=== PATIENT | male | born 1970 | race African-American/Black ===

== ENCOUNTER 2017-11-15 11:28 | Emergency (ER) | payer OTHER ==
[2017-11-15 12:45] LABS: Absolute Lymphocytes (CBC) 2.6 K/uL (0.7-4.9); Absolute Monocytes 0.4 K/uL (0.1-1.3); Absolute Neutrophil 2.2 K/uL (1.8-8.0); Basophils % 0.5 % (0-1.3); Eosinophils % 1.6 % (0-4.4); Hematocrit 41.7 % (39.6-49.0); Lymphocytes % 49.3 % (15.3-44.8); MCH 30.6 pg (27.0-35.0); MCV 93.6 fL (80-100); MPV 9.5 fL (7.6-11.3); Monocytes % 6.8 % (3.3-12.3); RBC Red Blood Cell Count 4.45 M/uL (4.33-5.43)
[2017-11-15 13:00] LABS: Bicarbonate 26 mEq/L (21-31); Glucose Level 124 mg/dL (65-120); Potassium 3.8 mEq/L (3.6-5.0); Sodium Level 135 mEq/L (135-145)
[2017-11-15 13:01] LABS: BUN Blood Urea Nitrogen 11 mg/dL (6-20)
--- NOTE | 2017-11-15 13:27 | RAD REPORT ---
EXAM DESCRIPTION: RAD - Chest Single View - 11/15/2017 1:08 pm CLINICAL HISTORY: Chest pain COMPARISON: July 25 TECHNIQUE: AP portable chest image was obtained 1247 hours . FINDINGS: Lungs are clear. Heart and vasculature are normal. No measurable pleural effusion and no p neumothorax. No gross bony abnormality seen. No acute aortic findings suspected. IMPRESSION: No acute cardiopulmonary process. No significant interval change.
--- NOTE | 2017-11-15 13:34 | EKG ---
Test Date: 2017-11-15 Test Time: 13:22:40 Wood Box Maker: SEE MEASUREMENT RESULTS: Intervals: Rate: 69 MA: 194 QRSD: 80 QT: 396 QTc: 424 Byers: P: 44 MA: 194 QRS: 19 T: 47 INTERPRETIVE STATEMENTS: Normal sinus rhythm Normal ECG Compared to ECG 07/25/2017 21:49:00 No significant changes Electronically Signed On 11-15-17 13:34:02 CDT by Geoff Faria
--- NOTE | 2017-11-15 13:47 | ER ---
Nurse's Notes [facility] Name: Marie Carty Age: 47 yrs Sex: Male : 1970 Arrival Date: 11/15/2017 Time: 11:30 Bed 6 Private MD: Out, [facility] Diagnosis: Chest pain, unspecified;Unspecified mononeuropathy of left upper limb;Other specified mononeuropathies of left lower limb Presentation: 11/15 11:39 Presenting complaint: Patient states: Swelling to bilateral hands, usually in the aj mornings and at night. for 1 week. Transition of care: patient was not received from another setting of care. Onset of symptoms was November 07, 2017. Care prior to arrival: None. 11:39 Method Of Arrival: Ambulatory aj 11:39 Acuity: MARYAM 3 aj 12:06 Risk Assessment: Do you want to hurt yourself or someone else? Patient reports no sv desire to harm self or others. Initial Sepsis Screen: Does the patient meet any 2 criteria? No. Patient's initial sepsis screen is negative. Does the patient have a suspected source of infection? No. Patient's initial sepsis screen is negative. Triage Assessment: 11:40 General: Appears in no apparent distress. comfortable, Behavior is calm, cooperative, aj appropriate for age. Pain: Denies pain. Neuro: Level of Consciousness is awake, alert, obeys commands, Oriented to person, place, time, situation, Appropriate for age. Cardiovascular: Reports since swelling to bilateral hands for 1 week. Respiratory: Airway is patent Respiratory effort is even, unlabored, Respiratory pattern is regular, symmetrical. Derm: Skin is intact, is healthy with good turgor, Skin is pink, warm \T\ dry. normal. Historical: - Allergies: 11:40 Iodine; aj - Home Meds: 11:40 Cyclobenzaprine Oral [Active]; Hydrocodone-Acetaminophen Oral [Active]; Metformin Oral aj [Active]; Xanax Oral [Active]; - PMHx: 11:40 Anxiety; Chronic pain; aj - PSHx: 11:40 None; aj - Immunization history:: Adult Immunizations up to date. - Social history:: Smoking status: Patient uses tobacco products, smokes one pack cigarettes per day. - Ebola Screening: : Patient negative for fever greater than or equal to 101.5 degrees Fahrenheit, and additional compatible Ebola Virus Disease symptoms Patient denies exposure to infectious person Patient denies travel to an Ebola-affected area in the 21 days before illness onset No symptoms or risks identified at this time. Screenin:05 Abuse screen: Denies threats or abuse. Denies injuries from another. Nutritional sv screening: No deficits noted. Tuberculosis screening: No symptoms or risk factors identified. Fall Risk None identified. Assessment: 12:03 General: Appears in no apparent distress. comfortable, well developed, Behavior is sv calm, cooperative, appropriate for age. Pain: Denies pain. Neuro: Level of Consciousness is awake, alert, obeys commands, Oriented to person, place, time, situation, Airline Pilot/First Officer are equal bilaterally Moves all extremities. Full function Gait is steady, Speech is normal, Reports intermittent numbness and tightness to his left arm. Pt reports he had cut his left forearm with a chainsaw and has been having intermittent numbness and tightness.. Cardiovascular: Patient's skin is warm and dry. Pulses are 3+ in right radial artery and left radial artery. Respiratory: Respiratory effort is even, unlabored, Respiratory pattern is regular, symmetrical. Derm: Skin is normal. Musculoskeletal: Range of motion: intact in all extremities. 14:29 Reassessment: Patient appears in no apparent distress at this time. No changes from sv previously documented assessment. Patient and/or family updated on plan of care and expected duration. Pain level reassessed. Patient is alert, oriented x 3, equal unlabored respirations, skin warm/dry/pink. Vital Signs: 11:40 BP 133 / 70; Pulse 82; Resp 19; Temp 98.6; Pulse Ox 98% on R/A; Weight 121.56 kg; aj Height 5 ft. 8 in. (172.72 cm); 13:10 BP 134 / 84; Pulse 70 MON; Resp 22; Pulse Ox 99% on R/A; sv 11:40 Body Mass Index 40.75 (121.56 kg, 172.72 cm) aj 13:10 Sinus Rhythm sv ED Course: 11:30 Patient arrived in ED. sb2 11:31 Out, [facility] is Private Physician. sb2 11:40 Triage completed. aj 11:40 Arm band placed on right wrist. Patient placed in an exam room. aj 11:53 Sonya Savage, JACQUES is Primary Nurse. sv 12:05 Patient has correct armband on for positive identification. Bed in low position. Door sv closed. Head of bed elevated. 12:15 Dami Tolliver MD is Attending Physician. 12:30 Initial lab(s) drawn, by me, sent to lab. Inserted saline lock: 20 gauge in right sv antecubital area, using aseptic technique. Blood collected. Flushed right antecubital with 5 ml normal saline. 13:08 XRAY Chest (1 view) In Process Unspecified. EDMS 13:08 X-ray completed. Portable x-ray completed in exam room. Patient tolerated procedure mh1 well. 13:26 EKG done, by microbiology quality control technician. reviewed by Dami Tolliver MD. at1 14:30 No provider procedures requiring assistance completed. IV discontinued, intact, sv bleeding controlled, No redness/swelling at site. Pressure dressing applied. Administered Medications: No medications were administered Point of Care Testing: Blood Glucose: 12:02 Blood Glucose: 113 mg/dL; sv Ranges: Outcome: 13:46 Discharge ordered by . gs 14:30 Discharged to home ambulatory, with family. sv 14:30 Condition: stable 14:30 Discharge instructions given to patient, Instructed on discharge instructions, follow up and referral plans. Demonstrated understanding of instructions, follow-up care. 14:31 Patient left the ED. sv Signatures: Dispatcher [employer] Sonya Canela, Santa Sena RN, RN RN aj Harvey, Martha 1 Santa hayden, mortgage loan counselor EKG Tat1 Dami Tolliver MD MD Federica Samaniego 2
--- NOTE | 2017-11-15 13:47 | EDPHYS ---
Physician Documentation [facility] Name: Marie Carty Age: 47 yrs Sex: Male : 1970 Arrival Date: 11/15/2017 Time: 11:30 Bed 6 Private MD: Out, [facility] ED Physician Dami Tolliver HPI: 11/15 15:59 This 47 yrs old Black Male presents to ER via Ambulatory with complaints of Arm Problem.gs 15:59 The patient or guardian complains of pain, that is acute. The complaints affect the gs anterior aspect of left shoulder. Onset: The symptoms/episode began/occurred 1 week(s) ago. Modifying factors: The symptoms are alleviated by nothing. the symptoms are aggravated by nothing. Associated signs and symptoms: Pertinent positives: tingling. Severity of symptoms: At their worst the symptoms were moderate, in the emergency department the symptoms are unchanged. The patient has experienced similar episodes in the past, a few times. Historical: - Allergies: 11:40 Iodine; aj - Home Meds: 11:40 Cyclobenzaprine Oral [Active]; Hydrocodone-Acetaminophen Oral [Active]; Metformin Oral aj [Active]; Xanax Oral [Active]; - PMHx: 11:40 Anxiety; Chronic pain; aj - PSHx: 11:40 None; aj - Immunization history:: Adult Immunizations up to date. - Social history:: Smoking status: Patient uses tobacco products, smokes one pack cigarettes per day. - Ebola Screening: : Patient negative for fever greater than or equal to 101.5 degrees Fahrenheit, and additional compatible Ebola Virus Disease symptoms Patient denies exposure to infectious person Patient denies travel to an Ebola-affected area in the 21 days before illness onset No symptoms or risks identified at this time. ROS: 15:59 All other systems are negative. gs Exam: 15:59 Head/Face: Normocephalic, atraumatic. Eyes: Pupils equal round and reactive to light, gs extra-ocular motions intact. Lids and lashes normal. Conjunctiva and sclera are non-icteric and not injected. Cornea within normal limits. Periorbital areas with no swelling, redness, or edema. ENT: Nares patent. No nasal discharge, no septal abnormalities noted. Tympanic membranes are normal and external auditory canals are clear. Oropharynx with no redness, swelling, or masses, exudates, or evidence of obstruction, uvula midline. Mucous membranes moist. Neck: Trachea midline, no thyromegaly or masses palpated, and no cervical lymphadenopathy. Supple, full range of motion without nuchal rigidity, or vertebral point tenderness. No Meningismus. Chest/axilla: Normal chest wall appearance and motion. Nontender with no deformity. No lesions are appreciated. Cardiovascular: Regular rate and rhythm with a normal S1 and S2. No gallops, murmurs, or rubs. Normal PMI, no JVD. No pulse deficits. Respiratory: Lungs have equal breath sounds bilaterally, clear to auscultation and percussion. No rales, rhonchi or wheezes noted. No increased work of breathing, no retractions or nasal flaring. Abdomen/GI: Soft, non-tender, with normal bowel sounds. No distension or tympany. No guarding or rebound. No evidence of tenderness throughout. Back: No spinal tenderness. No costovertebral tenderness. Full range of motion. Skin: Warm, dry with normal turgor. Normal color with no rashes, no lesions, and no evidence of cellulitis. MS/ Extremity: Pulses equal, no cyanosis. Neurovascular intact. Full, normal range of motion. 15:59 Constitutional: The patient appears alert, awake. 15:59 ECG was reviewed by the Attending Physician. Vital Signs: 11:40 BP 133 / 70; Pulse 82; Resp 19; Temp 98.6; Pulse Ox 98% on R/A; Weight 121.56 kg; aj Height 5 ft. 8 in. (172.72 cm); 13:10 BP 134 / 84; Pulse 70 MON; Resp 22; Pulse Ox 99% on R/A; sv 11:40 Body Mass Index 40.75 (121.56 kg, 172.72 cm) aj 13:10 Sinus Rhythm sv MDM: 12:26 Patient medically screened. 15:59 Differential diagnosis: contusion, tendonitis, cad, strain. Data reviewed: vital signs, gs nurses notes. Response to treatment: the patient's symptoms have markedly improved after treatment, and as a result, I will discharge patient. 11/15 12:02 Order name: Glucose, Ancillary Testing; Complete Time: 12:15 EDMS 11/15 12:26 Order name: Basic Metabolic Panel; Complete Time: 13:42 gs 11/15 12:26 Order name: CBC with Diff; Complete Time: 13:42 11/15 12:26 Order name: Troponin (emerg Dept Use Only); Complete Time: 13:42 11/15 12:26 Order name: XRAY Chest (1 view); Complete Time: 13:42 11/15 12:26 Order name: EKG; Complete Time: 12:27 11/15 12:26 Order name: Cardiac monitoring; Complete Time: 12:37 11/15 12:26 Order name: EKG - Nurse/Tech; Complete Time: 13:44 11/15 12:26 Order name: IV Saline Lock; Complete Time: 12:37 11/15 12:26 Order name: Labs collected and sent; Complete Time: 12:37 11/15 12:26 Order name: O2 Per Protocol; Complete Time: 12:37 11/15 12:26 Order name: O2 Sat Monitoring; Complete Time: 12:38 gs EC:59 Rate is 69 beats/min. Rhythm is regular. MD interval is normal. QRS interval is normal. gs T waves are Normal. No ST changes noted. Clinical impression: Normal ECG. Interpreted by me. Administered Medications: No medications were administered Point of Care Testing: Blood Glucose: 12:02 Blood Glucose: 113 mg/dL; sv Ranges: Critical Glucose Levels:Adult <50 mg/dl or >400 mg/dl <40 mg/dl or >180 mg/dl Disposition: 11/15/17 13:46 Discharged to Home. Impression: Chest pain, unspecified, Unspecified mononeuropathy of left upper limb, Other specified mononeuropathies of left lower limb. - Condition is Stable. - Discharge Instructions: Nonspecific Chest Pain, Diabetic Neuropathy. - Medication Reconciliation Form, Thank You Letter, Antibiotic Education, Prescription Opioid Use form. - Follow up: Private Physician; When: 2 - 3 days; Reason: Recheck today's complaints, Re-evaluation by your physician. Signatures: Dispatcher [employer] Sonya Canela RN RN sv Myers, Amanda, RN RN aj Starr, Gregory, MD MD gs Corrections: (The following items were deleted from the chart) 14:31 13:46 11/15/2017 13:46 Discharged to Home. Impression: Chest pain, unspecified; sv Unspecified mononeuropathy of left upper limb; Other specified mononeuropathies of left lower limb. Condition is Stable. Forms are Medication Reconciliation Form, Thank You Letter, Antibiotic Education, Prescription Opioid Use. Follow up: Private Physician; When: 2 - 3 days; Reason: Recheck today's complaints, Re-evaluation by your physician. gs
[2017-11-15 14:34] VITALS: TEMP 98.6
[2017-11-15 14:35] VITALS: BP 134/84; O2SAT 99
== END 2017-11-15 14:31 | disposition home or self-care (01) ==
LOC: ER 11:28
DX: G56.92 Unspecified mononeuropathy of left upper limb (principal); G57.82 Other specified mononeuropathies of left lower limb; F41.9 Anxiety disorder, unspecified; F17.210 Nicotine dependence, cigarettes, uncomplicated; Z91.048 Other nonmedicinal substance allergy status
CPT/HCPCS: 36415; 71045; 80048; 82962; 84484; 85025; 93005; 99284

== ENCOUNTER 2017-12-20 15:47 | Emergency (ER) | payer SELFPAY ==
--- NOTE | 2017-12-20 16:01 | ER ---
Nurse's Notes [facility] Name: Marie Carty Age: 47 yrs Sex: Male : 1970 Arrival Date: 12/20/2017 Time: 15:50 Bed Waiting Private MD: None, None Diagnosis: Presentation: 12/20 15:56 Presenting complaint: Patient states: Reports feeling palpitations today. Transition of aj care: patient was not received from another setting of care. Onset of symptoms was December 20, 2017. Risk Assessment: Do you want to hurt yourself or someone else? Patient reports no desire to harm self or others. Initial Sepsis Screen: Does the patient meet any 2 criteria? No. Patient's initial sepsis screen is negative. Does the patient have a suspected source of infection? No. Patient's initial sepsis screen is negative. Care prior to arrival: None. 15:56 Method Of Arrival: Ambulatory 15:56 Acuity: MARYAM 3 aj Triage Assessment: 15:58 General: Appears in no apparent distress. comfortable, Behavior is calm, cooperative, aj appropriate for age. Pain: Denies pain. Neuro: Level of Consciousness is awake, alert, obeys commands, Oriented to person, place, time, situation, Appropriate for age. Cardiovascular: Reports palpitations. Respiratory: Airway is patent Respiratory effort is even, unlabored, Respiratory pattern is regular, symmetrical. Derm: Skin is intact, is healthy with good turgor, Skin is pink, warm \\T\\ dry. normal. Historical: - Allergies: 15:58 Iodine; aj - Home Meds: 15:58 Hydrocodone-Acetaminophen Oral [Active]; Cyclobenzaprine Oral [Active]; Metformin Oral aj [Active]; Xanax Oral [Active]; Ambien Oral [Active]; - PMHx: 15:58 Anxiety; Chronic pain; Diabetes - NIDDM; aj - PSHx: 15:58 back; aj - Immunization history:: Adult Immunizations up to date. - Social history:: Smoking status: Patient/guardian denies using tobacco. - Ebola Screening: : Patient negative for fever greater than or equal to 101.5 degrees Fahrenheit, and additional compatible Ebola Virus Disease symptoms Patient denies exposure to infectious person Patient denies travel to an Ebola-affected area in the 21 days before illness onset No symptoms or risks identified at this time. Vital Signs: 15:58 BP 123 / 79; Pulse 86; Resp 18; Temp 98.5; Pulse Ox 98% on R/A; Weight 121.56 kg; aj Height 5 ft. 8 in. (172.72 cm); 15:58 Body Mass Index 40.75 (121.56 kg, 172.72 cm) aj ED Course: 15:50 Patient arrived in ED. mr 15:50 None, None is Private Physician. mr 15:57 Triage completed. aj 15:58 Arm band placed on left wrist. Patient placed Patient stated "Well I don't want to see aj a doctor, my blood pressure and heart rate are normal. I just wanted to see what they were. I'm going to go home." Patient encouraged to stay. 16:01 Yeison Park MD is Attending Physician. lala Administered Medications: No medications were administered Outcome: 16:00 Eloped from waiting room, before seeing physician Time discovered patient gone: December aj 2017 at 16:00 See note 16:01 Patient left the ED. lala Signatures: Santa Meehan, RN RN Chelle To mr
[2017-12-20 16:04] VITALS: BP 123/79; TEMP 98.5; O2SAT 98
== END 2017-12-20 16:01 | disposition left against medical advice (07) ==
LOC: ER 15:47
DX: Z53.21 Procedure and treatment not carried out due to patient leaving prior to being seen by health care provider (principal)
CPT/HCPCS: 99281

== ENCOUNTER 2018-01-22 18:33 | Emergency (ER) | payer OTHER, SELFPAY ==
--- NOTE | 2018-01-22 20:28 | ER ---
Nurse's Notes [facility] Name: Marie Carty Age: 47 yrs Sex: Male : 1970 Arrival Date: 01/22/2018 Time: 18:35 Bed 16 Private MD: Diagnosis: Chest pain, unspecified Presentation: 01/22 18:36 Presenting complaint: Patient states: i was watching TV around 5:30pm when i started hj feeling a burning sensation on the L side of my body, my chest, my L arm, my L leg; reports on and off SOB;. Transition of care: patient was not received from another setting of care. Onset of symptoms was January 22, 2018. Risk Assessment: Do you want to hurt yourself or someone else? Patient reports no desire to harm self or others. Initial Sepsis Screen: Does the patient meet any 2 criteria? No. Patient's initial sepsis screen is negative. Does the patient have a suspected source of infection? No. Patient's initial sepsis screen is negative. Care prior to arrival: None. 18:36 Method Of Arrival: Ambulatory 18:36 Acuity: MARYAM 3 hj Triage Assessment: 18:39 General: Appears in no apparent distress. uncomfortable, Behavior is calm, cooperative, hj appropriate for age. Pain: Complains of pain in chest. Historical: - Allergies: 18:39 Iodine; hj - Home Meds: 18:39 Ambien Oral [Active]; Cyclobenzaprine Oral [Active]; Hydrocodone-Acetaminophen Oral hj [Active]; Metformin Oral [Active]; Xanax Oral [Active]; - PMHx: 18:39 Anxiety; Chronic pain; Diabetes - NIDDM; hj - PSHx: 18:39 back; hj - Immunization history:: Adult Immunizations up to date. - Social history:: Smoking status: Patient/guardian denies using tobacco. - Ebola Screening: : Patient negative for fever greater than or equal to 101.5 degrees Fahrenheit, and additional compatible Ebola Virus Disease symptoms Patient denies exposure to infectious person Patient denies travel to an Ebola-affected area in the 21 days before illness onset. Screenin:39 Abuse screen: Denies threats or abuse. Denies injuries from another. Nutritional hj screening: No deficits noted. Tuberculosis screening: No symptoms or risk factors identified. Fall Risk None identified. Assessment: 19:12 General: Appears uncomfortable, Behavior is calm, cooperative, appropriate for age. ea Pain: Complains of pain in anterior aspect of left upper chest Pain does not radiate. Pain currently is 6 out of 10 on a pain scale. Quality of pain is described as aching, Is intermittent. Neuro: Level of Consciousness is awake, alert, obeys commands, Oriented to person, place, time, situation. Cardiovascular: Heart tones S1 S2 present Patient's skin is warm and dry. Respiratory: Airway is patent Respiratory effort is even, unlabored, Respiratory pattern is regular, symmetrical, Breath sounds are clear bilaterally. GI: Abdomen is round Bowel sounds present X 4 quads. Abd is soft and non tender X 4 quads. : No signs and/or symptoms were reported regarding the genitourinary system. Derm: Skin is dry, Skin is normal, Skin temperature is warm. Musculoskeletal: Circulation, motion, and sensation intact. 20:23 Reassessment: Patient and/or family updated on plan of care and expected duration. Pain ea level reassessed. Patient is alert, oriented x 3, equal unlabored respirations, skin warm/dry/pink. 20:46 Reassessment: Patient and/or family updated on plan of care and expected duration. Pain ea level reassessed. Patient is alert, oriented x 3, equal unlabored respirations, skin warm/dry/pink. Discharge instructions given to patient, verbalized the understanding of instruction. Patient denies pain at this time. Patient states feeling better. Patient states symptoms have improved. Vital Signs: 18:40 BP 133 / 83; Pulse 87; Resp 18; Temp 98.2(TE); Pulse Ox 97% on R/A; Weight 122.02 kg; hj Height 5 ft. 8 in. (172.72 cm); Pain 3/10; 19:15 BP 122 / 63; Pulse 83; Resp 18; Pulse Ox 99% ; Pain 5/10; ea 20:23 BP 138 / 76; Pulse 76; Resp 18; Pulse Ox 98% on R/A; Pain 0/10; ea 18:40 Body Mass Index 40.90 (122.02 kg, 172.72 cm) ED Course: 18:35 Patient arrived in ED. hj 18:38 Triage completed. hj 18:40 Arm band placed on left wrist. hj 18:40 Patient has correct armband on for positive identification. Placed in gown. Bed in low hj position. Call light in reach. Side rails up X 1. 19:06 Dami Tolliver MD is Attending Physician. ting 19:12 Karmen Kirby, RN is Primary Nurse. quinton 20:47 No provider procedures requiring assistance completed. IV discontinued, intact, ea bleeding controlled, No redness/swelling at site. Pressure dressing applied. Administered Medications: No medications were administered Outcome: 20:28 Discharge ordered by MD. gs 20:47 Discharged to home ambulatory, with family. ea 20:47 Condition: improved 20:47 Discharge instructions given to patient, family, Instructed on discharge instructions, follow up and referral plans. Demonstrated understanding of instructions, follow-up care. 20:48 Patient left the ED. ea Signatures: Jose Desai RN RN hj Antunez, Elena, RN RN ea Starr, Gregory, MD MD Corrections: (The following items were deleted from the chart) 18:42 18:36 Presenting complaint: Patient states: i was watching TV around 5:30pm when i hj started feeling a burning sensation on the L side of my body, my L arm, my L leg; reports on and off SOB; hj 18:43 18:40 Pulse 87bpm; Resp 18bpm; Pulse Ox 97% RA; Temp 98.2F Temporal; 122.02 kg; Height hj 5 ft. 8 in.; BMI: 40.9; Pain 3/10; hj
--- NOTE | 2018-01-22 20:28 | EDPHYS ---
Physician Documentation [facility] Name: Marie Carty Age: 47 yrs Sex: Male : 1970 Arrival Date: 01/22/2018 Time: 18:35 Bed 16 Private MD: ED Physician Dami Tolliver HPI: 01/22 20:21 This 47 yrs old Black Male presents to ER via Ambulatory with complaints of L side gs burning sensation. 20:21 The patient or guardian reports chest pain that is located primarily in the anterior gs chest wall, left. Onset: acutely, just prior to arrival. The pain does not radiate. Associated signs and symptoms: Pertinent negatives: abdominal pain, lightheadedness, palpitations, shortness of breath, syncope. The chest pain is described as tingling. Duration: The patient or guardian reports a single episode, that is now resolved, that lasted 5 minute(s). Modifying factors: The symptoms are alleviated by nothing. the symptoms are aggravated by nothing. Severity of pain: At its worst the pain was mild in the emergency department the pain has resolved and did so just prior to arrival. The patient has experienced similar episodes in the past, several times. Historical: - Allergies: 18:39 Iodine; hj - Home Meds: 18:39 Ambien Oral [Active]; Cyclobenzaprine Oral [Active]; Hydrocodone-Acetaminophen Oral hj [Active]; Metformin Oral [Active]; Xanax Oral [Active]; - PMHx: 18:39 Anxiety; Chronic pain; Diabetes - NIDDM; hj - PSHx: 18:39 back; hj - Immunization history:: Adult Immunizations up to date. - Social history:: Smoking status: Patient/guardian denies using tobacco. - Ebola Screening: : Patient negative for fever greater than or equal to 101.5 degrees Fahrenheit, and additional compatible Ebola Virus Disease symptoms Patient denies exposure to infectious person Patient denies travel to an Ebola-affected area in the 21 days before illness onset. ROS: 20:21 All other systems are negative. gs Exam: 20:21 Head/Face: Normocephalic, atraumatic. Eyes: Pupils equal round and reactive to light, gs extra-ocular motions intact. Lids and lashes normal. Conjunctiva and sclera are non-icteric and not injected. Cornea within normal limits. Periorbital areas with no swelling, redness, or edema. ENT: Nares patent. No nasal discharge, no septal abnormalities noted. Tympanic membranes are normal and external auditory canals are clear. Oropharynx with no redness, swelling, or masses, exudates, or evidence of obstruction, uvula midline. Mucous membranes moist. Neck: Trachea midline, no thyromegaly or masses palpated, and no cervical lymphadenopathy. Supple, full range of motion without nuchal rigidity, or vertebral point tenderness. No Meningismus. Chest/axilla: Normal chest wall appearance and motion. Nontender with no deformity. No lesions are appreciated. Cardiovascular: Regular rate and rhythm with a normal S1 and S2. No gallops, murmurs, or rubs. Normal PMI, no JVD. No pulse deficits. Respiratory: Lungs have equal breath sounds bilaterally, clear to auscultation and percussion. No rales, rhonchi or wheezes noted. No increased work of breathing, no retractions or nasal flaring. Abdomen/GI: Soft, non-tender, with normal bowel sounds. No distension or tympany. No guarding or rebound. No evidence of tenderness throughout. Back: No spinal tenderness. No costovertebral tenderness. Full range of motion. Skin: Warm, dry with normal turgor. Normal color with no rashes, no lesions, and no evidence of cellulitis. MS/ Extremity: Pulses equal, no cyanosis. Neurovascular intact. Full, normal range of motion. Neuro: Awake and alert, GCS 15, oriented to person, place, time, and situation. Cranial nerves II-XII grossly intact. Motor strength 5/5 in all extremities. Sensory grossly intact. Cerebellar exam normal. Normal gait. 20:21 Constitutional: The patient appears alert, awake. 20:21 ECG was reviewed by the Attending Physician. Vital Signs: 18:40 BP 133 / 83; Pulse 87; Resp 18; Temp 98.2(TE); Pulse Ox 97% on R/A; Weight 122.02 kg; hj Height 5 ft. 8 in. (172.72 cm); Pain 3/10; 19:15 BP 122 / 63; Pulse 83; Resp 18; Pulse Ox 99% ; Pain 5/10; ea 20:23 BP 138 / 76; Pulse 76; Resp 18; Pulse Ox 98% on R/A; Pain 0/10; ea 18:40 Body Mass Index 40.90 (122.02 kg, 172.72 cm) MDM: 19:16 Patient medically screened. 20:21 Differential diagnosis: abnormal EKG, acute myocardial infarction, chest wall pain. Data reviewed: vital signs, nurses notes, old medical records. Counseling: I had a detailed discussion with the patient and/or guardian regarding: the presence of at least one elevated blood pressure reading (>120/80) during this emergency department visit. Special discussion: I have referred the patient to see his PCP for further evaluation of high blood pressure. ED course: pt with several episodes of same discussed co morbidities pcp followup no return of pain or tingling. 01/22 19:17 Order name: Troponin I; Complete Time: 20:21 01/22 18:42 Order name: EKG; Complete Time: 18:43 EC:21 Rate is 89 beats/min. Rhythm is regular. [place] interval is normal. QRS interval is normal. gs T waves are Normal. No ST changes noted. Clinical impression: Normal ECG. Interpreted by me. Administered Medications: No medications were administered Disposition: 01/22/18 20:28 Discharged to Home. Impression: Chest pain, unspecified. - Condition is Stable. - Discharge Instructions: Nonspecific Chest Pain, Managing Your Hypertension. - Medication Reconciliation Form, Thank You Letter, Antibiotic Education, Prescription Opioid Use form. - Follow up: Private Physician; When: 2 - 3 days; Reason: Re-evaluation by your physician. Signatures: Dispatcher [employer] EDMS Jose Desai RN RN hj Antunez, Elena, RN RN ea Starr, Gregory, MD MD Corrections: (The following items were deleted from the chart) 20:48 20:28 01/22/2018 20:28 Discharged to Home. Impression: Chest pain, unspecified. ea Condition is Stable. Forms are Medication Reconciliation Form, Thank You Letter, Antibiotic Education, Prescription Opioid Use. Follow up: Private Physician; When: 2 - 3 days; Reason: Re-evaluation by your physician. gs
[2018-01-22 20:58] VITALS: TEMP 98.2
[2018-01-22 21:00] VITALS: BP 138/76; O2SAT 98
--- NOTE | 2018-01-23 08:32 | EKG ---
Test Date: 2018-01-22 Test Time: 18:47:05 Legal Editor: DORIS MEASUREMENT RESULTS: Intervals: Rate: 89 DC: 172 QRSD: 78 QT: 348 QTc: 423 [place]: P: 47 DC: 172 QRS: 34 T: 46 INTERPRETIVE STATEMENTS: Normal sinus rhythm Normal ECG Compared to ECG 11/15/2017 13:22:40 No significant changes Electronically Signed On 01-23-18 07:47:12 CDT by Geoff Faria
== END 2018-01-22 20:48 | disposition home or self-care (01) ==
LOC: ER 18:33
DX: R07.9 Chest pain, unspecified (principal); E11.9 Type 2 diabetes mellitus without complications; F41.9 Anxiety disorder, unspecified; Z91.048 Other nonmedicinal substance allergy status
CPT/HCPCS: 36415; 82962; 84484; 93005; 99281

== ENCOUNTER 2018-04-06 21:08 | Emergency (ER) | payer OTHER ==
[2018-04-06 22:50] LABS: Absolute Lymphocytes (CBC) 2.6 K/uL (0.7-4.9); Absolute Monocytes 0.3 K/uL (0.1-1.3); Absolute Neutrophil 1.5 K/uL (1.8-8.0); Basophils % 0.5 % (0-1.3); Hematocrit 38.1 % (39.6-49.0); Lymphocytes % 57.4 % (15.3-44.8); MCH 31.7 pg (27.0-35.0); MCV 92.6 fL (80-100); Monocytes % 7.2 % (3.3-12.3); RBC Red Blood Cell Count 4.11 M/uL (4.33-5.43)
[2018-04-06 23:10] LABS: BUN Blood Urea Nitrogen 11 mg/dL (7-18); Bicarbonate 27 mmol/L (21-32); Glucose Level 95 mg/dL (74-106); Potassium 3.7 mmol/L (3.5-5.1); Sodium Level 140 mmol/L (136-145); Troponin I < 0.02 ng/mL (0.0-0.045)
--- NOTE | 2018-04-07 00:24 | ER ---
Nurse's Notes [facility] Name: Marie Carty Age: 48 yrs Sex: Male : 1970 Arrival Date: 04/06/2018 Time: 21:12 Bed 19 Private MD: Diagnosis: Chest pain, unspecified;Hypertension Presentation: 04/06 21:41 Presenting complaint: Patient states: "I had some tightness in my arm, and I think my aj1 blood pressure must have went up" Reports that the tightness in his left arm has subsided some, but is still there. Reports that he has been having chest pains on and off for the past week. States that he has an appointment with his PHCP on . Transition of care: patient was not received from another setting of care. Onset of symptoms was April 06, 2018. Risk Assessment: Do you want to hurt yourself or someone else? Patient reports no desire to harm self or others. Initial Sepsis Screen: Does the patient meet any 2 criteria? No. Patient's initial sepsis screen is negative. Does the patient have a suspected source of infection? No. Patient's initial sepsis screen is negative. Care prior to arrival: None. 21:41 Method Of Arrival: Ambulatory aj1 21:41 Acuity: MARYAM 3 aj1 Triage Assessment: 21:43 General: Appears in no apparent distress. comfortable, Behavior is calm, cooperative, aj1 appropriate for age. Pain: Denies pain. Neuro: Level of Consciousness is awake, alert, obeys commands. Cardiovascular: Patient's skin is warm and dry. Respiratory: Airway is patent Respiratory effort is even, unlabored, Respiratory pattern is regular, symmetrical. Historical: - Allergies: 21:43 Iodine; aj1 - Home Meds: 21:43 Ambien Oral [Active]; Cyclobenzaprine Oral [Active]; Hydrocodone-Acetaminophen Oral aj1 [Active]; Metformin Oral [Active]; Xanax Oral [Active]; - PMHx: 21:43 Anxiety; Chronic pain; Diabetes - NIDDM; aj1 - Immunization history:: Flu vaccine is up to date. - Social history:: Smoking status: Patient uses tobacco products, smokes one-half pack cigarettes per day. - Ebola Screening: : Patient denies travel to an Ebola-affected area in the 21 days before illness onset. - Family history:: not pertinent. - Hospitalizations: : No recent hospitalization is reported. Screenin:57 Abuse screen: Denies threats or abuse. Denies injuries from another. Nutritional ao screening: No deficits noted. Tuberculosis screening: No symptoms or risk factors identified. Fall Risk None identified. Assessment: 21:55 Reassessment:. General: Appears in no apparent distress. comfortable, Behavior is calm, ao cooperative, appropriate for age. Pain: Denies pain. Neuro: Level of Consciousness is awake, alert, obeys commands, Oriented to person, place, time, situation, Appropriate for age Moves all extremities. Full function Speech is normal, Facial symmetry appears normal, Pupils are PERRLA. Cardiovascular: Capillary refill < 3 seconds Patient's skin is warm and dry. Respiratory: Airway is patent Respiratory effort is even, unlabored, Respiratory pattern is regular, symmetrical. GI: Abdomen is non-distended. : No signs and/or symptoms were reported regarding the genitourinary system. EENT: No signs and/or symptoms were reported regarding the EENT system. Derm: Skin is intact, Skin is pink, warm \\T\\ dry. normal, Skin temperature is warm. Musculoskeletal: Circulation, motion, and sensation intact. Range of motion: intact in all extremities. 22:55 Reassessment: Patient appears in no apparent distress at this time. Patient and/or ao family updated on plan of care and expected duration. Pain level reassessed. 23:41 Reassessment: Patient appears in no apparent distress at this time. Patient and/or ao family updated on plan of care and expected duration. Pain level reassessed. Waiting on dispo orders. Vital Signs: 21:43 BP 143 / 97; Pulse 75; Resp 20; Temp 97.2; Pulse Ox 98% on R/A; Weight 120.2 kg (R); aj1 Height 5 ft. 8 in. (172.72 cm) (R); Pain 0/10; 22:40 BP 146 / 84; Pulse 72; Resp 16; Pulse Ox 97% on R/A; ao 23:41 BP 148 / 86; Pulse 69; Resp 16; Pulse Ox 100% ; Pain 0/10; ao 21:43 Body Mass Index 40.29 (120.20 kg, 172.72 cm) aj1 ED Course: 21:12 Patient arrived in ED. es 21:43 Triage completed. aj1 21:45 Arm band placed on Patient placed in an exam room. aj1 21:51 Michael Cao MD is Attending Physician. kdr 21:51 Yeison Park MD is Attending Physician. rn 21:55 Pavel Jordan RN is Primary Nurse. ao 21:57 Patient has correct armband on for positive identification. Pulse ox on. NIBP on. ao 22:28 Inserted saline lock: 20 gauge in right forearm, using aseptic technique. Blood ao collected. 22:44 EKG done, by ED staff, reviewed by Yeison Park MD. ao 23:39 Radiology exam delayed due to [employer] DOWN. kw 23:39 X-ray completed. Portable x-ray completed in exam room. Patient tolerated procedure kw well. 23:40 XRAY Chest (1 view) In Process Unspecified. EDMS 04/07 00:52 No provider procedures requiring assistance completed. IV discontinued, intact, ao bleeding controlled, No redness/swelling at site. Pressure dressing applied. Administered Medications: No medications were administered Outcome: 00:24 Discharge ordered by MD. rn 00:52 Discharged to home ambulatory. ao 00:52 Condition: stable 00:52 Discharge instructions given to patient, Instructed on discharge instructions, Demonstrated understanding of instructions. 00:53 Patient left the ED. ao Signatures: Dispatcher [employer] EDRI Temitope Man, JACQUES RN aj1 Michael Cao MD MD kdr Salyer, Edna es Nieto, Roman, MD MD rn Whitley, Kimberlee kw Ortiz, Alex, JACQUES RN ao Corrections: (The following items were deleted from the chart) 04/06 21:45 21:43 Arm band placed on Patient placed in waiting room, Patient notified of wait time aj1 aj
--- NOTE | 2018-04-07 00:24 | EDPHYS ---
Physician Documentation [facility] Name: Marei Carty Age: 48 yrs Sex: Male : 1970 Arrival Date: 04/06/2018 Time: 21:12 Bed 19 Private MD: ED Physician Yeison Park HPI: 04/06 23:32 This 48 yrs old Black Male presents to ER via Ambulatory with complaints of High Blood rn Pressure. 23:32 The patient has elevated blood pressure and discovered this at home. Onset: The rn symptoms/episode began/occurred today. Modifying factors:. Severity of symptoms: At its worst the blood pressure was moderate, in the emergency department the blood pressure is unchanged. The patient has experienced similar episodes in the past. REports noticed tightness in left arm, reports has been watching a lot of tv leaning head towards left and leaning on left arm. NO trauma. Reports took BP, was elevated, and began to get anxious. Reports brief episodes of chest pains over last week, had neg stress about 1 year ago. No current chest pain.. Historical: - Allergies: 21:43 Iodine; aj1 - Home Meds: 21:43 Ambien Oral [Active]; Cyclobenzaprine Oral [Active]; Hydrocodone-Acetaminophen Oral aj1 [Active]; Metformin Oral [Active]; Xanax Oral [Active]; - PMHx: 21:43 Anxiety; Chronic pain; Diabetes - NIDDM; aj1 - Immunization history:: Flu vaccine is up to date. - Social history:: Smoking status: Patient uses tobacco products, smokes one-half pack cigarettes per day. - Ebola Screening: : Patient denies travel to an Ebola-affected area in the 21 days before illness onset. - Family history:: not pertinent. - Hospitalizations: : No recent hospitalization is reported. ROS: 23:32 Constitutional: Negative for fever, chills, and weight loss, Eyes: Negative for injury, rn pain, redness, and discharge, Neck: Negative for injury, pain, and swelling, Cardiovascular: Negative for palpitations, and edema, Respiratory: Negative for shortness of breath, cough, wheezing, and pleuritic chest pain, Abdomen/GI: Negative for abdominal pain, nausea, vomiting, diarrhea, and constipation, MS/Extremity: Negative for injury and deformity, Skin: Negative for injury, rash, and discoloration, Neuro: Negative for headache, weakness, numbness, tingling, and seizure. Exam: 23:32 Constitutional: This is a well developed, well nourished patient who is awake, alert, rn and in no acute distress. Head/Face: Normocephalic, atraumatic. Eyes: Pupils equal round and reactive to light, extra-ocular motions intact. Lids and lashes normal. Conjunctiva and sclera are non-icteric and not injected. Cornea within normal limits. Periorbital areas with no swelling, redness, or edema. Neck: Trachea midline, no thyromegaly or masses palpated, and no cervical lymphadenopathy. Supple, full range of motion without nuchal rigidity, or vertebral point tenderness. No Meningismus. Cardiovascular: Regular rate and rhythm with a normal S1 and S2. No gallops, murmurs, or rubs. Normal PMI, no JVD. No pulse deficits. Respiratory: Lungs have equal breath sounds bilaterally, clear to auscultation and percussion. No rales, rhonchi or wheezes noted. No increased work of breathing, no retractions or nasal flaring. Abdomen/GI: Soft, non-tender, with normal bowel sounds. No distension or tympany. No guarding or rebound. No evidence of tenderness throughout. MS/ Extremity: Pulses equal, no cyanosis. Neurovascular intact. Full, normal range of motion. Equal circumference. Neuro: Awake and alert, GCS 15, oriented to person, place, time, and situation. Cranial nerves II-XII grossly intact. Motor strength 5/5 in all extremities. Sensory grossly intact. Cerebellar exam normal. Vital Signs: 21:43 BP 143 / 97; Pulse 75; Resp 20; Temp 97.2; Pulse Ox 98% on R/A; Weight 120.2 kg (R); aj1 Height 5 ft. 8 in. (172.72 cm) (R); Pain 0/10; 22:40 BP 146 / 84; Pulse 72; Resp 16; Pulse Ox 97% on R/A; ao 23:41 BP 148 / 86; Pulse 69; Resp 16; Pulse Ox 100% ; Pain 0/10; ao 21:43 Body Mass Index 40.29 (120.20 kg, 172.72 cm) aj1 MDM: 21:51 Patient medically screened. rn 04/07 00:22 Differential diagnosis: hypertensive crisis, Malignant HTN, chest pain, hypertension, rn pleurisy, anxiety, stress, radiculopathy. Data reviewed: vital signs, nurses notes, lab test result(s), EKG, radiologic studies, plain films, and as a result, I will discharge patient. Counseling: I had a detailed discussion with the patient and/or guardian regarding: the historical points, exam findings, and any diagnostic results supporting the discharge/admit diagnosis, lab results, radiology results, the need for outpatient follow up, to return to the emergency department if symptoms worsen or persist or if there are any questions or concerns that arise at home. Response to treatment: the patient's condition has returned to base line, the patient is now symptom free, and as a result, I will discharge patient. Special discussion: I discussed with the patient/guardian in detail that at this point there is no indication for admission to the hospital. It is understood, however, that if the symptoms persist or worsen the patient needs to return immediately for re-evaluation. ED course: Pt with neg w/u, normal trop, neg cxr, possible stress/anxiety from high blood pressure, had neg stress < 1 year ago, has f/u appt tomorrow, will dc home with instruction to take meds as prescribed, and smoking cessation.. 04/06 22:45 Order name: Basic Metabolic Panel; Complete Time: 23:14 EDMS 04/06 22:45 Order name: Troponin I; Complete Time: 23:14 EDMS 04/06 22:45 Order name: CBC with Automated Diff; Complete Time: 23:14 EDMS 04/06 22:02 Order name: IV Start; Complete Time: 22:27 rn 04/06 22:02 Order name: XRAY Chest (1 view) rn 04/06 22:02 Order name: EKG; Complete Time: 22:55 rn 04/06 22:02 Order name: EKG - Nurse/Tech; Complete Time: 22:44 rn Administered Medications: No medications were administered Disposition: 04/07/18 00:24 Discharged to Home. Impression: Chest pain, unspecified, Hypertension. - Condition is Stable. - Discharge Instructions: Nonspecific Chest Pain, Hypertension, Pain Without a Known Cause. - Medication Reconciliation Form, Thank You Letter, Antibiotic Education, Prescription Opioid Use form. - Follow up: Private Physician; When: As needed; Reason: Recheck today's complaints, Re-evaluation by your physician. - Problem is new. - Symptoms have improved. Signatures: Dispatcher [employer] EDOH Temitope Man RN RN aj1 Yeison Park MD MD rn Ortiz, Alex, RN RN ao Corrections: (The following items were deleted from the chart) 04/06 23:16 22:55 CBC+H.LAB.BRZ ordered. [facility] 23:16 22:55 BASIC METABOLIC PANEL+C.LAB.BRZ ordered. [facility] 23:16 22:55 TROPONIN (EMERG DEPT USE ONLY)+C.LAB.BRZ ordered. [facility] 04/07 00:53 00:24 04/07/2018 00:24 Discharged to Home. Impression: Chest pain, unspecified; ao Hypertension. Condition is Stable. Forms are Medication Reconciliation Form, Thank You Letter, Antibiotic Education, Prescription Opioid Use. Follow up: Private Physician; When: As needed; Reason: Recheck today's complaints, Re-evaluation by your physician. Problem is new. Symptoms have improved. rn
[2018-04-07 01:49] VITALS: O2SAT 100
[2018-04-07 01:56] VITALS: TEMP 99
[2018-04-07 01:57] VITALS: BP 98/76
--- NOTE | 2018-04-07 07:58 | RAD REPORT ---
EXAM DESCRIPTION: RAD - Chest Single View - 04/06/2018 11:42 pm CLINICAL HISTORY: Chest pain, left arm pain, hypertensive COMPARISON: November 15 TECHNIQUE: AP portable chest image was obtained 2326 hours . FINDINGS: Lungs are clear. Heart and vasculature are normal. No measurable pleural effusion and no p neumothorax. No acute bony abnormality seen. No acute aortic findings suspected. IMPRESSION: No acute cardiopulmonary process. No significant change from comparison.
--- NOTE | 2018-04-07 09:02 | EKG ---
Test Date: 2018-04-06 Test Time: 22:34:49 First Cook: ANASTASIA MEASUREMENT RESULTS: Intervals: Rate: 72 CT: 198 QRSD: 78 QT: 380 QTc: 416 [place]: P: 67 CT: 198 QRS: 68 T: 25 INTERPRETIVE STATEMENTS: Normal sinus rhythm Normal ECG Compared to ECG 01/22/2018 18:47:05 No significant changes Electronically Signed On 04-07-18 09:01:31 CDT by Geoff Faria
== END 2018-04-07 00:53 | disposition home or self-care (01) ==
LOC: ER 21:08
DX: I10 Essential (primary) hypertension (principal); E11.9 Type 2 diabetes mellitus without complications; F41.9 Anxiety disorder, unspecified; Z91.048 Other nonmedicinal substance allergy status
CPT/HCPCS: 36415; 71045; 80048; 84484; 85025; 93005; 99284

== ENCOUNTER 2018-05-06 19:20 | Emergency (ER) | payer OTHER ==
--- NOTE | 2018-05-06 20:09 | RAD REPORT ---
EXAM DESCRIPTION: Mian Single View05/06/2018 7:56 pm CLINICAL HISTORY: Chest pain COMPARISON: March 2018 FINDINGS: The lungs appear clear of acute infiltrate. The heart is normal size IMPRESSION: No acute abnormalities displayed
[2018-05-06] MEDS ORDERED: ONDANSETRON 4 MG/2 ML VIAL ONE (20:15)
[2018-05-06] MEDS ORDERED: MORPHINE 4 MG/ML SYR ONE (20:15)
[2018-05-06 20:20] LABS: Protime INR 1.05
[2018-05-06 20:21] LABS: Absolute Lymphocytes (CBC) 2.9 K/uL (0.7-4.9); Absolute Monocytes 0.3 K/uL (0.1-1.3); Absolute Neutrophil 1.9 K/uL (1.8-8.0); Basophils % 0.8 % (0-1.3); Eosinophils % 2.1 % (0-4.4); Lymphocytes % 54.7 % (15.3-44.8); MCH 31.9 pg (27.0-35.0); MCV 92.9 fL (80-100); MPV 9.4 fL (7.6-11.3); Monocytes % 6.4 % (3.3-12.3); RBC Red Blood Cell Count 4.19 M/uL (4.33-5.43)
[2018-05-06 20:38] LABS: ALT/SGPT 95 U/L (12-78); AST/SGOT 72 U/L (15-37); Albumin 3.8 g/dL (3.4-5.0); Alkaline Phosphatase 57 U/L (45-117); BUN Blood Urea Nitrogen 10 mg/dL (7-18); Bicarbonate 28 mmol/L (21-32); Bilirubin Direct < 0.1 mg/dL (0-0.2); Bilirubin Total 0.3 mg/dL (0.2-1.0); Glucose Level 101 mg/dL (74-106); Magnesium 1.9 mg/dL (1.8-2.4); NT PRO-BNP 6 pg/mL (<125); Potassium 4.4 mmol/L (3.5-5.1); Protein, Total 7.5 g/dL (6.4-8.2); Sodium Level 138 mmol/L (136-145); Troponin (Emerg Dept Use Only) < 0.02 ng/mL (0.0-0.045)
--- NOTE | 2018-05-06 21:46 | EDPHYS ---
Physician Documentation [facility] Name: Marie Carty Age: 48 yrs Sex: Male : 1970 Arrival Date: 05/06/2018 Time: 19:23 Bed 25 Private MD: ED Physician Cristiano Jain HPI: 05/06 19:49 This 48 yrs old Black Male presents to ER via Ambulatory with complaints of Chest Pain. [facility] 19:49 The patient or guardian reports chest pain that is located primarily in the substernal [facility] area. Onset: gradually, 1 week(s) ago. The pain does not radiate. The chest pain is described as aching, a pressure. Duration: The patient or guardian reports a single episode, that is still ongoing. Modifying factors: The symptoms are alleviated by nothing. the symptoms are aggravated by nothing. This is a 48 year old male with a history of dm, htn that presents to the ED with left sided chest pressure beginning approx 1 week ago with increased pain decreibed as an ache beginning 2 hours prior to arrival. Denies history of CAD. Patient smokes tobacco. Patient denies injury. . Historical: - Allergies: 19:30 Iodine; ak1 - Home Meds: 19:30 Metformin Oral [Active]; Cyclobenzaprine Oral [Active]; ak1 - PMHx: 19:30 Anxiety; Chronic pain; Diabetes - NIDDM; ak1 - PSHx: 19:30 None; ak1 - Immunization history:: Adult Immunizations unknown. - Social history:: Smoking status: Patient uses tobacco products, smokes one pack cigarettes per day. - Ebola Screening: : Patient negative for fever greater than or equal to 101.5 degrees Fahrenheit, and additional compatible Ebola Virus Disease symptoms Patient denies exposure to infectious person Patient denies travel to an Ebola-affected area in the 21 days before illness onset. ROS: 19:49 Constitutional: Negative for fever, chills, and weight loss, Eyes: Negative for injury, jmm pain, redness, and discharge. 19:49 Respiratory: Negative for shortness of breath, cough, wheezing, and pleuritic chest pain, Abdomen/GI: Negative for abdominal pain, nausea, vomiting, diarrhea, and constipation, Back: Negative for injury and pain, MS/Extremity: Negative for injury and deformity, Skin: Negative for injury, rash, and discoloration, Neuro: Negative for headache, weakness, numbness, tingling, and seizure. 19:49 Cardiovascular: Positive for chest pain. 19:49 All other systems are negative. Exam: 19:49 Head/Face: atraumatic. Chest/axilla: Normal chest wall appearance and motion. [facility] Cardiovascular: Regular rate and rhythm. No edema appreciated Respiratory: Normal respirations, no respiratory distress appreciated Abdomen/GI: Non distended, soft 19:49 Skin: General appearance color normal MS/ Extremity: Moves all extremities, no obvious deformities appreciated, no edema noted to the lower extremities Neuro: Awake and alert, normal gait Psych: Behavior is normal, Mood is normal, Patient is cooperative and pleasant 19:49 Constitutional: The patient appears alert, awake, anxious, uncomfortable. 19:49 Neck: ROM/movement: is normal. 21:47 ECG was reviewed by the Attending Physician. [facility] Vital Signs: 19:30 BP 137 / 93; Pulse 81; Resp 18; Temp 97.4(O); Pulse Ox 98% on R/A; Weight 127.01 kg ak1 (R); Height 5 ft. 8 in. (172.72 cm) (R); Pain 8/10; 20:37 BP 106 / 81; Pulse 73; Resp 22; Pulse Ox 97% on R/A; rv 19:30 Body Mass Index 42.57 (127.01 kg, 172.72 cm) ak1 MDM: 19:45 Patient medically screened. [facility] 21:43 Data reviewed: vital signs, nurses notes, lab test result(s), EKG, radiologic studies, [facility] plain films. ED course: PERC score negative for PE. I discussed with the patient and his the need for admission due to risk factors. Patient was made aware this could lead to potential life threatening undiagnosed cardiac conditions. Patient and understood. Patient was given strict return precautions. . 05/06 19: Order name: Basic Metabolic Panel; Complete Time: 20:40 [facility] 05/06 19: Order name: CBC with Diff; Complete Time: 20:22 [facility] 05/06 19:33 Order name: LFT's; Complete Time: 20:40 [facility] 05/06 19: Order name: Magnesium; Complete Time: 20:40 [facility] 05/06 19:33 Order name: NT PRO-BNP; Complete Time: 20:40 [facility] 05/06 19:33 Order name: PT-INR; Complete Time: 20:22 [facility] 05/06 19:33 Order name: Troponin (emerg Dept Use Only); Complete Time: 20:40 jm 05/06 19:33 Order name: XRAY Chest (1 view); Complete Time: 20:10 jm 05/06 19:33 Order name: EKG; Complete Time: 19:34 [facility] 05/06 19:33 Order name: Cardiac monitoring; Complete Time: 20:10 [facility] 05/06 19:33 Order name: EKG - Nurse/Tech; Complete Time: 20:10 [facility] 05/06 19:33 Order name: IV Saline Lock; Complete Time: 20:11 [facility] 05/06 19:33 Order name: Labs collected and sent; Complete Time: 20:11 [facility] 05/06 19:33 Order name: O2 Per Protocol; Complete Time: 20:11 [facility] 05/06 19:33 Order name: O2 Sat Monitoring; Complete Time: 20:11 jmm EC:47 Rate is 73 beats/min. Rhythm is regular. QRS [place] is Normal. [place] interval is normal. QRS jmm interval is normal. QT interval is normal. No Q waves. T waves are Normal. No ST changes noted. Administered Medications: 20:16 Drug: morphine 4 mg Route: IVP; Site: left antecubital; aj 22:04 Follow up: Response: Pain is decreased rv 20:16 Drug: Zofran 4 mg Route: IVP; Site: left antecubital; aj 22:04 Follow up: Response: No adverse reaction rv 22:04 Drug: Cyclobenzaprine 10 mg Route: PO; rv 22:05 Follow up: Response: Medication administered at discharge. rv 22:05 Not Given (Patient Refused): Motrin 800 mg PO once rv Disposition: 05/07 05:04 Co-signature as Attending Physician, Cristiano Jain MD I agree with the assessment and 4 plan of care. Disposition: 05/06/18 21:45 Discharged to Home. Impression: Chest pain, unspecified. - Condition is Stable. - Discharge Instructions: Nonspecific Chest Pain. - Prescriptions for Ibuprofen 800 mg Oral Tablet - take 1 tablet by ORAL route every 8 hours As needed take with food; 30 tablet. Cyclobenzaprine 10 mg Oral Tablet - take 1 tablet by ORAL route every 8 hours As needed; 30 tablet. - Medication Reconciliation Form, Thank You Letter, Antibiotic Education, Prescription Opioid Use form. - Follow up: Private Physician; When: 2 - 3 days; Reason: Recheck today's complaints, Continuance of care, Re-evaluation by your physician. Signatures: Dispatcher [employer] Santa Danielle RN RN Brayden Pinzon PA PA jmm Krenek, Amber, RN RN ak1 Cristiano Jain MD MD tw4 Charles Benitez RN RN rv Corrections: (The following items were deleted from the chart) 05/06 22:06 21:45 05/06/2018 21:45 Discharged to Home. Impression: Chest pain, unspecified. rv Condition is Stable. Forms are Medication Reconciliation Form, Thank You Letter, Antibiotic Education, Prescription Opioid Use. Follow up: Private Physician; When: 2 - 3 days; Reason: Recheck today's complaints, Continuance of care, Re-evaluation by your physician. sin
--- NOTE | 2018-05-06 21:46 | ER ---
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 pt taking amoxicillian 500mg tabs for dental work. Transition of care: patient was not received from another setting of care. Onset of symptoms was May 06, 2018. Risk Assessment: Do you want to hurt yourself or someone else? Patient reports no desire to harm self or others. Initial Sepsis Screen: Does the patient meet any 2 criteria? No. Patient's initial sepsis screen is negative. Does the patient have a suspected source of infection? No. Patient's initial sepsis screen is negative. Care prior to arrival: None. 19:29 Method Of Arrival: Ambulatory ak1 19:29 Acuity: MARYAM 3 ak1 Historical: - Allergies: 19:30 Iodine; ak1 - Home Meds: 19:30 Metformin Oral [Active]; Cyclobenzaprine Oral [Active]; ak1 - PMHx: 19:30 Anxiety; Chronic pain; Diabetes - NIDDM; ak1 - PSHx: 19:30 None; ak1 - Immunization history:: Adult Immunizations unknown. - Social history:: Smoking status: Patient uses tobacco products, smokes one pack cigarettes per day. - Ebola Screening: : Patient negative for fever greater than or equal to 101.5 degrees Fahrenheit, and additional compatible Ebola Virus Disease symptoms Patient denies exposure to infectious person Patient denies travel to an Ebola-affected area in the 21 days before illness onset. Screenin:14 Abuse screen: Denies threats or abuse. Denies injuries from another. Nutritional aj screening: No deficits noted. Tuberculosis screening: No symptoms or risk factors identified. Fall Risk None identified. Assessment: 20:11 General: Appears in no apparent distress. comfortable, Behavior is calm, cooperative, aj appropriate for age. Pain: Complains of pain in chest. Neuro: Level of Consciousness is awake, alert, obeys commands, Oriented to person, place, time, situation, Appropriate for age. Cardiovascular: Reports chest pain, Capillary refill < 3 seconds in bilateral fingers Patient's skin is warm and dry. Respiratory: Airway is patent Respiratory effort is even, unlabored, Respiratory pattern is regular, symmetrical. Derm: Skin is intact, is healthy with good turgor, Skin is pink, warm \T\ dry. normal. 20:11 Reassessment: Patient drove himself to ER. Informed that a responsible adult must be aj here before narcotics can be given, as patient cannot be discharged home by himself after narcotic administration. 20:38 Pain: Pain does not radiate. Pain began suddenly. rv 20:39 Reassessment: Patient appears in no apparent distress at this time. Patient and/or rv family updated on plan of care and expected duration. Pain level reassessed. Patient is alert, oriented x 3, equal unlabored respirations, skin warm/dry/pink. Vital Signs: 19:30 BP 137 / 93; Pulse 81; Resp 18; Temp 97.4(O); Pulse Ox 98% on R/A; Weight 127.01 kg ak1 (R); Height 5 ft. 8 in. (172.72 cm) (R); Pain 8/10; 20:37 BP 106 / 81; Pulse 73; Resp 22; Pulse Ox 97% on R/A; rv 19:30 Body Mass Index 42.57 (127.01 kg, 172.72 cm) ak1 ED Course: 19:23 Patient arrived in ED. ds1 19:29 Triage completed. ak1 19:30 Arm band placed on Patient placed in an exam room, Patient notified of wait time. ak1 19:32 Brayden Martin PA is PHCP. [facility] 19:32 Cristiano Jain MD is Attending Physician. jmm 19:44 Santa Meehan, RN is Primary Nurse. aj 19:55 XRAY Chest (1 view) In Process Unspecified. EDMS 20:14 Patient has correct armband on for positive identification. patient monitor on. Pulse aj ox on. NIBP on. 20:15 Inserted saline lock: 20 gauge in left antecubital area, using aseptic technique. Blood aj collected. Patient maintains SpO2 saturation greater than 95% on room air. 20:37 No provider procedures requiring assistance completed. IV discontinued, bleeding rv controlled, No redness/swelling at site. Pressure dressing applied. Administered Medications: 20:16 Drug: morphine 4 mg Route: IVP; Site: left antecubital; aj 22:04 Follow up: Response: Pain is decreased rv 20:16 Drug: Zofran 4 mg Route: IVP; Site: left antecubital; aj 22:04 Follow up: Response: No adverse reaction rv 22:04 Drug: Cyclobenzaprine 10 mg Route: PO; rv 22:05 Follow up: Response: Medication administered at discharge. rv 22:05 Not Given (Patient Refused): Motrin 800 mg PO once rv Outcome: 21:45 Discharge ordered by MD. vogt 22:05 Discharged to home ambulatory. rv 22:05 Condition: good 22:05 Discharge instructions given to patient, family, Instructed on discharge instructions, follow up and referral plans. medication usage, Demonstrated understanding of instructions, follow-up care, medications, Prescriptions given X 2. 22:06 Patient left the ED. rv Signatures: Dispatcher [employer] EDSanta Barrios RN RN aj Mickail, Joel, PA PA jmm Sanford, Demi ds1 Janice Collins RN RN ak1 Charles Benitez RN RN rv
[2018-05-06] MEDS ORDERED: IBUPROFEN 400 MG TAB ONE (22:07)
[2018-05-06] MEDS ORDERED: CYCLOBENZAPRINE 10 MG TAB ONE (22:08)
[2018-05-06 23:19] VITALS: TEMP 97.4
[2018-05-06 23:20] VITALS: BP 106/81; O2SAT 97
--- NOTE | 2018-05-07 05:50 | EKG ---
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
== END 2018-05-06 22:06 | disposition home or self-care (01) ==
LOC: ER 19:20
DX: R07.9 Chest pain, unspecified (principal); F17.210 Nicotine dependence, cigarettes, uncomplicated; F41.9 Anxiety disorder, unspecified; E11.9 Type 2 diabetes mellitus without complications; Z91.048 Other nonmedicinal substance allergy status
CPT/HCPCS: 36415; 71045; 80048; 80076; 83735; 83880; 84484; 85025; 85610; 93005; 96374; 96375; 99285; J2405

== ENCOUNTER 2018-09-14 17:36 | Emergency (ER) | payer OTHER ==
--- NOTE | 2018-09-14 18:58 | ER ---
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 Pt denies pain, states it feels like his heart is beating fast. Transition of care: patient was not received from another setting of care. Onset of symptoms was September 14, 2018. Risk Assessment: Do you want to hurt yourself or someone else? Patient reports no desire to harm self or others. Initial Sepsis Screen: Does the patient meet any 2 criteria? No. Patient's initial sepsis screen is negative. Does the patient have a suspected source of infection? No. Patient's initial sepsis screen is negative. Care prior to arrival: None. 17:41 Method Of Arrival: Ambulatory la1 17:41 Acuity: MARYAM 3 la1 Historical: - Allergies: 17:43 Iodine; la1 - PMHx: 17:43 Anxiety; Chronic pain; Diabetes - NIDDM; Hypertension; la1 - Immunization history:: Adult Immunizations up to date. - Social history:: Smoking status: Patient uses tobacco products, smokes one pack cigarettes per day. - Ebola Screening: : No symptoms or risks identified at this time. Screenin:45 Abuse screen: Denies threats or abuse. Denies injuries from another. sg Assessment: 18:05 General: Appears in no apparent distress. comfortable, well groomed, well developed, sg well nourished, Behavior is calm, cooperative, appropriate for age. Pain: Denies pain. 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 Full function Speech is normal, Facial symmetry appears normal. Cardiovascular: Patient's skin is warm and dry. Chest pain is denied. Respiratory: Airway is patent Respiratory effort is even, unlabored, Respiratory pattern is regular, symmetrical. GI: No signs and/or symptoms were reported involving the gastrointestinal system. : No signs and/or symptoms were reported regarding the genitourinary system. EENT: No signs and/or symptoms were reported regarding the EENT system. Derm: Skin is pink, warm \T\ dry. Musculoskeletal: No signs and/or symptoms reported regarding the musculoskeletal system. 18:30 Reassessment: Patient appears in no apparent distress at this time. Patient and/or sg family updated on plan of care and expected duration. Pain level reassessed. Patient is alert, oriented x 3, equal unlabored respirations, skin warm/dry/pink. Patient denies pain at this time. Patient states feeling better. Vital Signs: 17:44 Pulse 108; Resp 14; Weight 108.86 kg; Height 5 ft. 8 in. (172.72 cm); la1 17:47 BP 131 / 91; Temp 98.8(O); Pulse Ox 100% ; lt1 18:30 BP 133 / 88; Pulse 87; Resp 16; Temp 98.2; Pulse Ox 100% on R/A; sg 17:44 Body Mass Index 36.49 (108.86 kg, 172.72 cm) la1 ED Course: 17:39 Patient arrived in ED. mr 17:39 out of town, doctor is Private Physician. mr 17:43 Triage completed. la1 17:43 Arm band placed on left wrist. EKG completed in triage. Results shown to MD. la1 17:59 Suraj Reynoso, RN is Primary Nurse. sg 18:05 Patient has correct armband on for positive identification. Bed in low position. Call sg light in reach. Side rails up X2. cafeteria monitor on. Pulse ox on. NIBP on. Warm blanket given. Head of bed elevated. 18:18 Maxwell Doan PA is PHCP. cp 18:18 Yeison Park MD is Attending Physician. cp Administered Medications: No medications were administered Outcome: 18:45 AMA AMA form signed sg 18:45 Condition: stable 18:45 Instructed on follow up and referral plans. safety practices, Demonstrated understanding of instructions. 18:59 Patient left the ED. sg Signatures: Suraj Reynoso RN JACQUES patten Benita BañuelosFrancisco RN RN la1 Maxwell Doan PA PA cp Tran, Leah lt
--- NOTE | 2018-09-14 18:58 | EDPHYS ---
Physician Documentation [facility] Name: Marie Carty Age: 48 yrs Sex: Male : 1970 Arrival Date: 09/14/2018 Time: 17:39 Bed 28 Private MD: out of town, doctor ED Physician Yeison Park HPI: 09/14 18:27 This 48 yrs old Black Male presents to ER via Ambulatory with complaints of Chest Pain. cp 18:27 The patient or guardian reports chest pain that is located primarily in the anterior cp chest wall, left. Onset: 2 hour(s) ago. The pain radiates to the left arm. Associated signs and symptoms: Pertinent positives: lightheadedness, tingling. Historical: - Allergies: 17:43 Iodine; la1 - PMHx: 17:43 Anxiety; Chronic pain; Diabetes - NIDDM; Hypertension; la1 - Immunization history:: Adult Immunizations up to date. - Social history:: Smoking status: Patient uses tobacco products, smokes one pack cigarettes per day. - Ebola Screening: : No symptoms or risks identified at this time. ROS: 18:30 Constitutional: Negative for body aches, chills, fever, poor PO intake. cp 18:30 Eyes: Negative for injury, pain, redness, and discharge. cp 18:30 ENT: Negative for drainage from ear(s), ear pain, sore throat, difficulty swallowing, difficulty handling secretions. 18:30 Cardiovascular: Positive for chest pain, palpitations. 18:30 Respiratory: Negative for cough, shortness of breath, wheezing. 18:30 Abdomen/GI: Negative for abdominal pain, nausea, vomiting, and diarrhea. 18:30 Neuro: Positive for tingling, weakness, lightheaded, Negative for altered mental status, headache, numbness, syncope. 18:30 All other systems are negative. Exam: 18:35 ECG was reviewed by the Attending Physician. cp 18:40 Constitutional: The patient appears in no acute distress, alert, awake, cp non-diaphoretic, non-toxic, well developed, well nourished. 18:40 Head/Face: Normocephalic, atraumatic. cp 18:40 Eyes: Periorbital structures: appear normal, Conjunctiva: normal, no exudate, no injection, Sclera: no appreciated abnormality, Lids and lashes: appear normal, bilaterally. 18:40 ENT: External ear(s): are unremarkable, Nose: is normal, Mouth: Lips: moist, Oral mucosa: pink and intact, moist, Posterior pharynx: is normal, airway is patent. 18:40 Neck: ROM/movement: is normal, is supple, without pain, no range of motions limitations, no nuchal rigidity. 18:40 Chest/axilla: Inspection: normal, Palpation: is normal, no crepitus, no tenderness. 18:40 Cardiovascular: Rate: normal, Rhythm: regular, Edema: is not appreciated, JVD: is not appreciated. 18:40 Respiratory: the patient does not display signs of respiratory distress, Respirations: normal, no use of accessory muscles, no retractions, no splinting, no tachypnea, labored breathing, is not present, Breath sounds: are clear throughout, no decreased breath sounds, no stridor, no wheezing. 18:40 Abdomen/GI: Inspection: abdomen appears normal, Palpation: abdomen is soft and non-tender, in all quadrants. 18:40 Back: pain, is absent, ROM is normal. 18:40 Skin: cellulitis, is not appreciated, no rash present. 18:40 Neuro: Orientation: to person, place \T\ time. Mentation: is normal, Cerebellar function: is grossly normal, Motor: moves all fours, strength is normal, Sensation: no obvious gross deficits. Vital Signs: 17:44 Pulse 108; Resp 14; Weight 108.86 kg; Height 5 ft. 8 in. (172.72 cm); la1 17:47 BP 131 / 91; Temp 98.8(O); Pulse Ox 100% ; lt1 18:30 BP 133 / 88; Pulse 87; Resp 16; Temp 98.2; Pulse Ox 100% on R/A; sg 17:44 Body Mass Index 36.49 (108.86 kg, 172.72 cm) la1 MDM: 18:18 Patient medically screened. cp 18:45 Data reviewed: vital signs, nurses notes, EKG. cp 18:45 Refusal of service: The patient/guardian displays adequate decision making capability cp and despite a detailed discussion of alternatives, benefits, risks, and consequences refuses: all lab tests. EC:35 Rate is 109 beats/min. Rhythm is regular. TN interval is normal. QRS interval is cp normal. QT interval is normal. T waves are Flattened in lead aVL. Interpreted by me. Reviewed by me. Administered Medications: No medications were administered Disposition: 09/14/18 18:57 Patient has left against medical advice. Impression: Chest pain, unspecified. - Patients states they are going to Home. - Condition is Stable. - Discharge Instructions: Nonspecific Chest Pain, Aspirin and Your Heart. Follow up: Private Physician; When: 1 - 2 days; Reason: Recheck today's complaints. - Problem is new. - Symptoms have improved. Addendum: 09/17/2018 07:05 Co-signature as Attending Physician, Yeison Park MD. r n Signatures: Suraj Reynoso RN Yeison Ma MD MD rn Attema, Lee, RN RN la1 Maxwell Doan PA PA cp Corrections: (The following items were deleted from the chart) 09/14 18:59 18:57 09/14/2018 18:57 Patients has left against medical advice. Impression: Chest sg pain, unspecified. Patient states they are going to Home. Condition is Stable. Follow up: Private Physician; When: 1 - 2 days; Reason: Recheck today's complaints. Problem is new. Symptoms have improved. cp
[2018-09-14 19:05] VITALS: BP 131/91; TEMP 98.8; O2SAT 100
== END 2018-09-14 18:59 | disposition left against medical advice (07) ==
LOC: ER 17:36
DX: R07.9 Chest pain, unspecified (principal); F41.9 Anxiety disorder, unspecified; E11.9 Type 2 diabetes mellitus without complications; I10 Essential (primary) hypertension; F17.210 Nicotine dependence, cigarettes, uncomplicated
CPT/HCPCS: 93005; 99284

== ENCOUNTER 2018-10-28 13:34 | Emergency (ER) | payer OTHER ==
--- NOTE | 2018-10-28 15:00 | EDPHYS ---
Physician Documentation [facility] Name: Marie Carty Age: 48 yrs Sex: Male : 1970 Arrival Date: 10/28/2018 Time: 13:36 Bed 19 Private MD: ED Physician Wagner Downing HPI: 10/28 14:44 This 48 yrs old Black Male presents to ER via Ambulatory with complaints of Heat ps1 Exposure. 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 He states that he has had symptoms like this before in the past associated with anxiety. He states that his symptoms have resolved prior to evaluation. He states that he may have got overheated. He is able to tolerate PO and is not hot anymore. . Historical: - Allergies: 13:47 Iodine; aj1 - Home Meds: 13:47 Cyclobenzaprine Oral [Active]; Metformin Oral [Active]; Hydrocodone-Acetaminophen Oral aj1 [Active]; Lisinopril Oral [Active]; - PMHx: 13:47 Anxiety; Chronic pain; Diabetes - NIDDM; Hypertension; aj1 - Immunization history:: Flu vaccine is up to date. - Social history:: Smoking status: Patient uses tobacco products, smokes one pack cigarettes per day. - Ebola Screening: : Patient denies travel to an Ebola-affected area in the 21 days before illness onset. ROS: 14:44 Constitutional: Negative for fever, chills, and weight loss, Eyes: Negative for injury, ps1 pain, redness, and discharge, ENT: Negative for injury, pain, and discharge, Cardiovascular: Negative for chest pain, palpitations, and edema, Respiratory: Negative for shortness of breath, cough, wheezing, and pleuritic chest pain, Abdomen/GI: Negative for abdominal pain, nausea, vomiting, diarrhea, and constipation, MS/Extremity: Negative for injury and deformity, Skin: Negative for injury, rash, and discoloration, Neuro: Negative for headache, weakness, numbness, tingling, and seizure. 14:44 Psych: Positive for anxiety. Exam: 14:44 Constitutional: This is a well developed, well nourished patient who is awake, alert, ps1 and in no acute distress. Head/Face: Normocephalic, atraumatic. Eyes: Pupils equal round and reactive to light, extra-ocular motions intact. Lids and lashes normal. Conjunctiva and sclera are non-icteric and not injected. Chest/axilla: Normal chest wall appearance and motion. Nontender with no deformity. No lesions are appreciated. Cardiovascular: Regular rate and rhythm. No gallops, murmurs, or rubs. Normal PMI, no JVD. No pulse deficits. Respiratory: Lungs have equal breath sounds bilaterally, clear to auscultation and percussion. No rales, rhonchi or wheezes noted. No increased work of breathing, no retractions or nasal flaring. Abdomen/GI: Soft, non-tender, with normal bowel sounds. No distension or tympany. No guarding or rebound. No evidence of tenderness throughout. Skin: Warm, dry with normal turgor. Normal color with no rashes, no lesions, and no evidence of cellulitis. MS/ Extremity: Pulses equal, no cyanosis. Neurovascular intact. Full, normal range of motion. Neuro: Awake and alert, GCS 15, oriented to person, place, time, and situation. Cranial nerves II-XII grossly intact. Sensory grossly intact. Psych: Awake, alert, with orientation to person, place and time. Behavior, mood, and affect are within normal limits. Vital Signs: 13:47 BP 109 / 87; Pulse 82; Resp 18; Temp 98.2(TE); Pulse Ox 97% on R/A; Weight 106.59 kg aj1 (R); Height 5 ft. 8 in. (172.72 cm) (R); Pain 7/10; 14:30 BP 111 / 79; Pulse 85; Resp 16; Temp 98.3; Pulse Ox 99% ; bp 13:47 Body Mass Index 35.73 (106.59 kg, 172.72 cm) aj1 MDM: 14:12 Patient medically screened. ps1 14:44 Data reviewed: vital signs, nurses notes. ED course: patient verbalized to the RN that ps1 he felt better and eloped from the emergency department without completing evaluation. . 10/28 14:07 Order name: PO challenge; Complete Time: 14:45 ps1 10/28 14:45 Order name: EKG; Complete Time: 14:45 bp 10/28 14:45 Order name: EKG - Nurse/Tech; Complete Time: 14:45 bp Administered Medications: No medications were administered Disposition: 10/28/18 14:58 Patient has left against medical advice. - Patients states they are going to Home. - Condition is Stable. Signatures: Dispatcher [employer] Temitope Boyd RN RN aj1 Kailash Ng RN RN bp Wagner Downing MD MD ps1
--- NOTE | 2018-10-28 15:00 | ER ---
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 I think I was dehydrated" Reports that the numbness has started to resolved. Transition of care: patient was not received from another setting of care. Onset of symptoms was October 28, 2018 at 13:00. Risk Assessment: Do you want to hurt yourself or someone else? Patient reports no desire to harm self or others. Initial Sepsis Screen: Does the patient meet any 2 criteria? No. Patient's initial sepsis screen is negative. Does the patient have a suspected source of infection? No. Patient's initial sepsis screen is negative. Care prior to arrival: None. 13:44 Method Of Arrival: Ambulatory aj1 13:44 Acuity: MARYAM 3 aj1 Triage Assessment: 13:47 General: Appears in no apparent distress. comfortable, Behavior is calm, cooperative, aj1 appropriate for age. Pain: Complains of pain in left arm Pain currently is 7 out of 10 on a pain scale. Neuro: Level of Consciousness is awake, alert, obeys commands, Oriented to person, place, time, situation. Cardiovascular: Patient's skin is warm and dry. Respiratory: Airway is patent Respiratory effort is even, unlabored, Respiratory pattern is regular, symmetrical. Derm: Skin is pink, warm \\T\\ dry. normal. Historical: - Allergies: 13:47 Iodine; aj1 - Home Meds: 13:47 Cyclobenzaprine Oral [Active]; Metformin Oral [Active]; Hydrocodone-Acetaminophen Oral aj1 [Active]; Lisinopril Oral [Active]; - PMHx: 13:47 Anxiety; Chronic pain; Diabetes - NIDDM; Hypertension; aj1 - Immunization history:: Flu vaccine is up to date. - Social history:: Smoking status: Patient uses tobacco products, smokes one pack cigarettes per day. - Ebola Screening: : Patient denies travel to an Ebola-affected area in the 21 days before illness onset. Screenin:43 Abuse screen: Denies threats or abuse. Denies injuries from another. Nutritional bp screening: No deficits noted. Tuberculosis screening: No symptoms or risk factors identified. Fall Risk None identified. Assessment: 13:45 General: SEE TRIAGE NOTE. bp 14:42 Reassessment: PT REFUSING PIV OR FURTHER HEALTHCARE ACTIVITIES. PT INSISTS ON LEAVING bp AMA, COUNSELED TO STAY BY STAFF, BUT REFUSED. PT ADVISED TO RETURN IF S/S RETURN. Vital Signs: 13:47 BP 109 / 87; Pulse 82; Resp 18; Temp 98.2(TE); Pulse Ox 97% on R/A; Weight 106.59 kg aj1 (R); Height 5 ft. 8 in. (172.72 cm) (R); Pain 7/10; 14:30 BP 111 / 79; Pulse 85; Resp 16; Temp 98.3; Pulse Ox 99% ; bp 13:47 Body Mass Index 35.73 (106.59 kg, 172.72 cm) aj1 ED Course: 13:36 Patient arrived in ED. mr 13:46 Triage completed. aj1 13:47 Arm band placed on Patient placed in an exam room. aj1 13:57 EKG done, by industrial controls technician. reviewed by Maxwell Garcia MD. sm3 14:01 Wagner Downing MD is Attending Physician. ps1 14:25 Kailash Ng, RN is Primary Nurse. bp 14:43 Patient has correct armband on for positive identification. Bed in low position. Call bp light in reach. Side rails up X2. 14:44 No provider procedures requiring assistance completed. Patient did not have IV access bp during this emergency room visit. Administered Medications: No medications were administered Outcome: 14:44 AMA Left before signing form. bp 14:44 Condition: stable 14:58 Patient left the ED. bp Signatures: Temitope Man RN RN aj BañuelosBenita mr Kailash Ng, JACQUES RN bp Wagner Downing MD MD ps1 Marsha Ramirez sm3
[2018-10-28 21:30] VITALS: BP 111/79; TEMP 98.3; O2SAT 99
--- NOTE | 2018-10-29 07:51 | EKG ---
Test Date: 2018-10-28 Test Time: 13:57:18 Children Counselor: ANGELA MEASUREMENT RESULTS: Intervals: Rate: 71 WA: 190 QRSD: 82 QT: 378 QTc: 410 [place]: P: 62 WA: 190 QRS: 65 T: 56 INTERPRETIVE STATEMENTS: Normal sinus rhythm Normal ECG Compared to ECG 09/14/2018 17:43:53 Sinus tachycardia no longer present Ventricular premature complex(es) no longer present Electronically Signed On 10-29-18 07:51:10 CDT by Geoff Faria
== END 2018-10-28 14:58 | disposition left against medical advice (07) ==
LOC: ER 13:34
DX: R20.0 Anesthesia of skin (principal); F41.9 Anxiety disorder, unspecified; E11.9 Type 2 diabetes mellitus without complications; I10 Essential (primary) hypertension; Z79.84 Long term (current) use of oral hypoglycemic drugs; Z53.29 Procedure and treatment not carried out because of patient's decision for other reasons
CPT/HCPCS: 93005; 99283

== ENCOUNTER 2020-11-28 08:28 | Emergency (ER) | payer OTHER ==
[2020-11-28 09:34] LABS: Absolute Lymphocytes (CBC) 2.2 K/uL (0.7-4.9); Basophils % 0.9 % (0-1.3); Hematocrit 38.4 % (39.6-49.0); Lymphocytes % 41.5 % (15.3-44.8); MPV 8.8 fL (7.6-11.3); RBC Red Blood Cell Count 4.16 M/uL (4.33-5.43)
[2020-11-28] MEDS ORDERED: DIPHENHYDRAMINE 50 MG/ML VIAL ONE ×2 (09:41→09:50)
[2020-11-28] MEDS ORDERED: METHYLPREDNISOLONE 125 MG INJ ONE ×2 (09:41→09:50)
[2020-11-28] MEDS ORDERED: MORPHINE 4 MG/ML SYR ONE (09:42)
[2020-11-28] MEDS ORDERED: ONDANSETRON 4 MG/2 ML VIAL ONE (09:42)
[2020-11-28] MEDS ORDERED: FAMOTIDINE 20 MG/2 ML VIAL IV ONE (09:42)
[2020-11-28] MEDS ORDERED: NA CHLORIDE 0.9% 1,000 ML ONE (09:43)
[2020-11-28 09:47] LABS: ALT/SGPT 44 U/L (12-78); AST/SGOT 43 U/L (15-37); Albumin 3.7 g/dL (3.4-5.0); Alkaline Phosphatase 67 U/L (45-117); BUN Blood Urea Nitrogen 9 mg/dL (7-18); Bicarbonate 28 mmol/L (21-32); Bilirubin Direct < 0.1 mg/dL (0-0.2); Bilirubin Total 0.2 mg/dL (0.2-1.0); Glucose Level 121 mg/dL (74-106); Lipase 76 U/L (73-393); Potassium 3.9 mmol/L (3.5-5.1); Protein, Total 7.4 g/dL (6.4-8.2); Sodium Level 138 mmol/L (136-145)
--- NOTE | 2020-11-28 09:57 | RAD REPORT ---
EXAM DESCRIPTION: CTAbdomen Pelvis W Contrast - 11/28/2020 9:42 am CLINICAL HISTORY: Abdominal pain. ABD PAIN COMPARISON: No comparisons TECHNIQUE: Biphasic CT imaging of the abdomen and pelvis was performed with 100 ml non-ionic IV cont rast. All CT scans are performed using dose optimization technique as appropriate and may include automated exposure control or mA/KV adjustment according to patient size. FINDINGS: The lung bases are clear. The liver demonstrates diffuse fatty infiltration. The spleen, pancreas, adrenal glands and kidneys a re within normal limits. No bowel obstruction, free air, free fluid or abscess. The appendix is normal. No evidence of signi ficant lymphadenopathy. Postsurgical changes lower lumbar spine with hardware in place. IMPRESSION: No acute intra-abdominal or pelvic finding.
--- NOTE | 2020-11-28 10:45 | EDPHYS ---
Physician Documentation [facility] Name: Marie Carty Age: 50 yrs Sex: Male : 1970 Arrival Date: 11/28/2020 Time: 08:37 Bed 5 Private MD: ED Physician Maxwell Garcia HPI: 11/28 09:37 This 50 yrs old Black Male presents to ER via Wheelchair with complaints of Back Pain, clarissa Groin Pain. 09:37 This 50 yrs old Black Male presents to ER via Wheelchair with complaints of Back Pain, clarissa Groin Pain. 09:37 The patient presents with pain that is acute, with no known mechanism of injury. The clarissa symptoms are located in the low back. Onset: The symptoms/episode began/occurred 2 day(s) ago. The pain does not radiate. Associated signs and symptoms: Pertinent positives: abdominal pain. The problem was sustained from unknown cause. Modifying factors: The patient symptoms are alleviated by remaining still, the patient symptoms are aggravated by movement. Severity of symptoms: At their worst the symptoms were mild, moderate, in the emergency department the symptoms are unchanged. The patient has not experienced similar symptoms in the past. Historical: - Allergies: 08:44 Iodine; ss - PMHx: 08:44 Anxiety; Chronic pain; Diabetes - NIDDM; Hypertension; ss - Immunization history:: Adult Immunizations up to date. - Social history:: Smoking status: Patient reports the use of cigarette tobacco products, smokes one pack cigarettes per day. - Family history:: not pertinent. ROS: 09:37 Constitutional: Negative for fever, chills, and weight loss, Eyes: Negative for injury, clarissa pain, redness, and discharge, ENT: Negative for injury, pain, and discharge, Neck: Negative for injury, pain, and swelling, Cardiovascular: Negative for chest pain, palpitations, and edema, Respiratory: Negative for shortness of breath, cough, wheezing, and pleuritic chest pain, : Negative for injury, bleeding, discharge, and swelling, MS/Extremity: Negative for injury and deformity, Skin: Negative for injury, rash, and discoloration, Neuro: Negative for headache, weakness, numbness, tingling, and seizure, Psych: Negative for depression, anxiety, suicide ideation, homicidal ideation, and hallucinations, Allergy/Immunology: Negative for hives, rash, and allergies, Endocrine: Negative for neck swelling, polydipsia, polyuria, polyphagia, and marked weight changes, Hematologic/Lymphatic: Negative for swollen nodes, abnormal bleeding, and unusual bruising. 09:37 Abdomen/GI: Positive for abdominal pain, of the right lower quadrant and left lower quadrant. 09:37 Back: Positive for pain with movement. Exam: 09:37 Constitutional: This is a well developed, well nourished patient who is awake, alert, clarissa and in no acute distress. Head/Face: Normocephalic, atraumatic. Eyes: Pupils equal round and reactive to light, extra-ocular motions intact. Lids and lashes normal. Conjunctiva and sclera are non-icteric and not injected. Cornea within normal limits. Periorbital areas with no swelling, redness, or edema. ENT: Nares patent. No nasal discharge, no septal abnormalities noted. Tympanic membranes are normal and external auditory canals are clear. Oropharynx with no redness, swelling, or masses, exudates, or evidence of obstruction, uvula midline. Mucous membranes moist. Neck: Trachea midline, no thyromegaly or masses palpated, and no cervical lymphadenopathy. Supple, full range of motion without nuchal rigidity, or vertebral point tenderness. No Meningismus. Chest/axilla: Normal chest wall appearance and motion. Nontender with no deformity. No lesions are appreciated. Cardiovascular: Regular rate and rhythm with a normal S1 and S2. No gallops, murmurs, or rubs. Normal PMI, no JVD. No pulse deficits. Respiratory: Lungs have equal breath sounds bilaterally, clear to auscultation and percussion. No rales, rhonchi or wheezes noted. No increased work of breathing, no retractions or nasal flaring. Back: No spinal tenderness. No costovertebral tenderness. Full range of motion. Male : Normal genitalia with no discharge or lesions. Skin: Warm, dry with normal turgor. Normal color with no rashes, no lesions, and no evidence of cellulitis. MS/ Extremity: Pulses equal, no cyanosis. Neurovascular intact. Full, normal range of motion. Neuro: Awake and alert, GCS 15, oriented to person, place, time, and situation. Cranial nerves II-XII grossly intact. Motor strength 5/5 in all extremities. Sensory grossly intact. Cerebellar exam normal. Normal gait. Psych: Awake, alert, with orientation to person, place and time. Behavior, mood, and affect are within normal limits. 09:37 Abdomen/GI: Inspection: distension, Bowel sounds: normal, Palpation: mild abdominal tenderness, moderate abdominal tenderness, in the suprapubic area, right lower quadrant and left lower quadrant, Liver: no appreciated palpable abnormalities, Hernia: not appreciated. 09:45 ECG was reviewed by the Attending Physician. [facility] Vital Signs: 08:42 BP 122 / 79; Pulse 85; Resp 15; Temp 97.8; Pulse Ox 100% on R/A; Weight 112.49 kg; ss Height 5 ft. 8 in. (172.72 cm); Pain 6/10; 10:30 BP 118 / 70; Pulse 82; Resp 16; Pulse Ox 98% on R/A; ph 11:30 BP 120 / 76; Pulse 83; Resp 16; Temp 97.85; Pulse Ox 99% on R/A; ph 08:42 Body Mass Index 37.71 (112.49 kg, 172.72 cm) ss MDM: 08:54 Patient medically screened. clarissa 09:41 Differential diagnosis: Hydronephrosis Inflammatory Bowel Disease Obesity spinal clarissa injury, sprain, Ureterolithiasis vertebral fracture. Data reviewed: vital signs, nurses notes, lab test result(s), EKG, radiologic studies, CT scan. Data interpreted: athletic monitor: rate is 85 beats/min, rhythm is regular, Pulse oximetry: on room air is 100 %. Test interpretation: by ED physician or midlevel provider: ECG. Counseling: I had a detailed discussion with the patient and/or guardian regarding: the historical points, exam findings, and any diagnostic results supporting the discharge/admit diagnosis, lab results, radiology results. 11/28 09:13 Order name: Basic Metabolic Panel; Complete Time: 10:43 [facility] 11/28 09:13 Order name: CBC with Diff; Complete Time: 10:43 [facility] 11/28 09:13 Order name: Hepatic Function; Complete Time: 10:43 [facility] 11/28 09:13 Order name: Lipase; Complete Time: 10:43 [facility] 11/28 09:13 Order name: Urine Culture [facility] 11/28 11:02 Order name: Urine Dipstick-Ancillary EDAK 11/28 09:13 Order name: CT Abd/Pelvis - IV Contrast Only; Complete Time: 10:43 [facility] 11/28 11:17 Order name: Urine Dipstick-Ancillary EDAK 11/28 09:13 Order name: IV Saline Lock; Complete Time: 09:32 [facility] 11/28 09:13 Order name: Labs collected and sent; Complete Time: 09:32 [facility] 11/28 09:13 Order name: EKG; Complete Time: 09:14 [facility] 11/28 09:13 Order name: EKG - Nurse/Tech; Complete Time: 09:21 [facility] 11/28 09:13 Order name: Urine Dipstick-Ancillary (obtain specimen); Complete Time: 11:19 [facility] EC:45 Rate is 80 beats/min. Rhythm is regular. QRS [place] is Normal. [place] interval is normal. QRS clarissa interval is normal. QT interval is normal. No Q waves. T waves are Normal. No ST changes noted. Clinical impression: Normal ECG and No evidence of ischemia. Interpreted by me. Reviewed by me. Administered Medications: 09:28 Drug: SOLU-Medrol (methylPrednisoLONE) 125 mg Route: IVP; Site: right antecubital; hb 11:43 Follow up: Response: No adverse reaction iw 09:28 Drug: morphine 4 mg Route: IVP; Site: right antecubital; hb 11:43 Follow up: Response: No adverse reaction; Pain is decreased iw 09:28 Drug: Zofran (Ondansetron) 4 mg Route: IVP; Site: right antecubital; hb 11:43 Follow up: Response: No adverse reaction iw 09:29 Drug: Pepcid (famotidine) 20 mg Route: IVP; Site: right antecubital; hb 11:43 Follow up: Response: No adverse reaction iw 09:30 Drug: Benadryl (diphenhydrAMINE) 50 mg Route: IVP; Site: right antecubital; hb 11:43 Follow up: Response: No adverse reaction iw 09:31 Drug: NS 0.9% 1000 ml Route: IV; Rate: 1 bolus; Site: right antecubital; hb 11:30 Follow up: IV Status: Completed infusion iw Disposition: 11/28/20 10:44 Discharged to Home. Impression: Low back pain, Abdominal tenderness - muscular, Essential (primary) hypertension, Type 2 diabetes mellitus. - Condition is Stable. - Discharge Instructions: Abdominal Pain, Adult, Back Pain, Adult, Musculoskeletal Pain, Abdominal Pain, Adult, [id number], Back Pain, Adult, [id number]. - Prescriptions for Ibuprofen 600 mg Oral Tablet - take 1 tablet by ORAL route every 6 hours As needed take with food; 20 tablet. Cyclobenzaprine 5 mg Oral Tablet - take 1 tablet by ORAL route 3 times per day As needed; 15 tablet. - Medication Reconciliation Form, Thank You Letter, Antibiotic Education, Prescription Opioid Use form. - Follow up: Private Physician; When: 2 - 3 days; Reason: Recheck today's complaints, Continuance of care, Re-evaluation by your physician. - Problem is new. - Symptoms have improved. Signatures: Dispatcher [employer] EDMS Maxwell Garcia MD MD cha Williams, Irene, RN RN iw Smirch, Shelby, RN RN ss Baxter, Heather, RN RN Corrections: (The following items were deleted from the chart) 10:46 10:44 11/28/2020 10:44 Discharged to Home. Impression: Low back pain; Abdominal clarissa tenderness - muscular. Condition is Stable. Forms are Medication Reconciliation Form, Thank You Letter, Antibiotic Education, Prescription Opioid Use. Follow up: Private Physician; When: 2 - 3 days; Reason: Recheck today's complaints, Continuance of care, Re-evaluation by your physician. Problem is new. Symptoms have improved. [facility] 11:43 10:46 11/28/2020 10:44 Discharged to Home. Impression: Low back pain; Abdominal iw tenderness - muscular; Essential (primary) hypertension; Type 2 diabetes mellitus. Condition is Stable. Discharge Instructions: Abdominal Pain, Adult, Back Pain, Adult, Musculoskeletal Pain, Abdominal Pain, Adult, [id number], Back Pain, Adult, [id number]. Prescriptions for Ibuprofen 600 mg Oral Tablet - take 1 tablet by ORAL route every 6 hours As needed take with food; 20 tablet, Tylenol-Codeine #3 300-30 mg Oral Tablet - take 2 tablets by ORAL route every 4-6 hours As needed; 24 tablet. and Forms are Medication Reconciliation Form, Thank You Letter, Antibiotic Education, Prescription Opioid Use. Follow up: Private Physician; When: 2 - 3 days; Reason: Recheck today's complaints, Continuance of care, Re-evaluation by your physician. Problem is new. Symptoms have improved. clarissa
--- NOTE | 2020-11-28 10:45 | ER ---
Nurse's Notes [facility] Name: Marie Carty Age: 50 yrs Sex: Male : 1970 Arrival Date: 11/28/2020 Time: 08:37 Bed 5 Private MD: Diagnosis: Low back pain;Abdominal tenderness-muscular;Essential (primary) hypertension;Type 2 diabetes mellitus Presentation: 11/28 08:42 Chief complaint: Patient states: lower abd pain and low back pain that began 2 days ss ago. Pt reports that the pain is worse when walking and more concentrated in his lower abd. Denies N/V/D and/or urinary s/s. Coronavirus screen: Client denies travel out of the [place] in the last 14 days. Ebola Screen: Patient denies exposure to infectious person. Patient denies travel to an Ebola-affected area in the 21 days before illness onset. Initial Sepsis Screen: Does the patient meet any 2 criteria? No. Patient's initial sepsis screen is negative. Does the patient have a suspected source of infection? No. Patient's initial sepsis screen is negative. Risk Assessment: Do you want to hurt yourself or someone else? Patient reports no desire to harm self or others. Onset of symptoms was November 26, 2020. 08:42 Method Of Arrival: Wheelchair ss 08:42 Acuity: MARYAM 3 ss Historical: - Allergies: 08:44 Iodine; ss - PMHx: 08:44 Anxiety; Chronic pain; Diabetes - NIDDM; Hypertension; ss - Immunization history:: Adult Immunizations up to date. - Social history:: Smoking status: Patient reports the use of cigarette tobacco products, smokes one pack cigarettes per day. - Family history:: not pertinent. Screenin:48 Abuse screen: Denies threats or abuse. Denies injuries from another. Nutritional ph screening: No deficits noted. Tuberculosis screening: No symptoms or risk factors identified. Fall Risk None identified. Assessment: 09:33 General: Appears in no apparent distress. comfortable, well groomed, Behavior is calm, ph cooperative, appropriate for age, Denies fever, feeling ill. Pain: Complains of pain in right femoral area, left femoral area and suprapubic area. Neuro: Level of Consciousness is awake, alert, obeys commands, Oriented to person, place, time, situation. Cardiovascular: Capillary refill < 3 seconds in bilateral fingers Patient's skin is warm and dry. Respiratory: Airway is patent Respiratory effort is even, unlabored. GI: Reports lower abdominal pain, Patient currently denies nausea, vomiting. : Reports pain in bilateral lower quadrant(s) in lower back. Derm: Skin is intact, is healthy with good turgor, Skin is pink, warm \T\ dry. Musculoskeletal: Circulation, motion, and sensation intact. Range of motion: intact in all extremities. 09:34 Reassessment: Pt taken to CT via stretcher. ph 10:15 Reassessment: Patient appears in no apparent distress at this time. Patient and/or hb family updated on plan of care and expected duration. Pain level reassessed. Patient is alert, oriented x 3, equal unlabored respirations, skin warm/dry/pink. Vital Signs: 08:42 BP 122 / 79; Pulse 85; Resp 15; Temp 97.8; Pulse Ox 100% on R/A; Weight 112.49 kg; ss Height 5 ft. 8 in. (172.72 cm); Pain 6/10; 10:30 BP 118 / 70; Pulse 82; Resp 16; Pulse Ox 98% on R/A; ph 11:30 BP 120 / 76; Pulse 83; Resp 16; Temp 97.85; Pulse Ox 99% on R/A; ph 08:42 Body Mass Index 37.71 (112.49 kg, 172.72 cm) ED Course: 08:37 Patient arrived in ED. mr 08:43 Triage completed. ss 08:44 Arm band placed on right wrist. ss 08:47 Poppy Caban, RN is Primary Nurse. ph 08:49 Patient has correct armband on for positive identification. Bed in low position. Call ph light in reach. Side rails up X 1. Pulse ox on. NIBP on. Door closed. Noise minimized. Warm blanket given. 08:54 Maxwell Garcia MD is Attending Physician. clarissa 09:21 EKG done, by ED staff, reviewed by Maxwell Garcia MD. em1 09:32 Inserted saline lock: 20 gauge in right antecubital area, using aseptic technique. ph Blood collected. 09:42 CT Abd/Pelvis - IV Contrast Only In Process Unspecified. EDMS 11:42 No provider procedures requiring assistance completed. IV discontinued, intact, iw bleeding controlled, No redness/swelling at site. Pressure dressing applied. Administered Medications: 09:28 Drug: SOLU-Medrol (methylPrednisoLONE) 125 mg Route: IVP; Site: right antecubital; hb 11:43 Follow up: Response: No adverse reaction iw 09:28 Drug: morphine 4 mg Route: IVP; Site: right antecubital; hb 11:43 Follow up: Response: No adverse reaction; Pain is decreased iw 09:28 Drug: Zofran (Ondansetron) 4 mg Route: IVP; Site: right antecubital; hb 11:43 Follow up: Response: No adverse reaction iw 09:29 Drug: Pepcid (famotidine) 20 mg Route: IVP; Site: right antecubital; hb 11:43 Follow up: Response: No adverse reaction iw 09:30 Drug: Benadryl (diphenhydrAMINE) 50 mg Route: IVP; Site: right antecubital; hb 11:43 Follow up: Response: No adverse reaction iw 09:31 Drug: NS 0.9% 1000 ml Route: IV; Rate: 1 bolus; Site: right antecubital; hb 11:30 Follow up: IV Status: Completed infusion iw Outcome: 10:44 Discharge ordered by MD. romo 11:42 Discharged to home ambulatory, with family. iw 11:42 Condition: good 11:42 Discharge instructions given to patient, Instructed on discharge instructions, follow up and referral plans. medication usage, Demonstrated understanding of instructions, follow-up care, medications, Prescriptions given X 2. 11:43 Patient left the ED. iw Signatures: Dispatcher [employer] EDMaxwell Galeana MD MD cha Rivera, Radha Zelaya, RN Jose Turk em1 Britt Ferrari RN RN Poppy Caban RN RN ph Baxter, Heather, RN RN hb
[2020-11-28 11:03] LABS: Urine Blood Trace-intact (Negative); Urine Glucose Negative (Negative); Urine Protein Negative (Negative)
[2020-11-28 11:17] LABS: Urine Blood Negative (Negative); Urine Glucose Negative (Negative); Urine Protein Negative (Negative)
[2020-11-28 11:58] VITALS: BP 122/79; TEMP 97.8; O2SAT 100
== END 2020-11-28 11:43 | disposition home or self-care (01) ==
LOC: ER 08:28
DX: R10.819 Abdominal tenderness, unspecified site (principal); E11.9 Type 2 diabetes mellitus without complications; I10 Essential (primary) hypertension; F17.210 Nicotine dependence, cigarettes, uncomplicated; Z91.048 Other nonmedicinal substance allergy status
CPT/HCPCS: 93005; 87088; 85025; 87086; 80048; 36415; 82565; 80076; 81003 ×2; 83690; 74177; Q9967; J1200; J7030; J2930; J2405; 96361; 96374; 96375; 99284

== ENCOUNTER 2021-02-08 15:34 | Emergency (ER) | payer OTHER ==
--- NOTE | 2021-02-08 17:28 | ER ---
Nurse's Notes [facility] Name: Marie Carty Age: 50 yrs Sex: Male : 1970 Arrival Date: 02/08/2021 Time: 15:40 Bed Waiting Private MD: Diagnosis: Acute pharyngitis, unspecified Presentation: 02/08 15:59 Chief complaint: Patient states: sore throat and body aches x 2 days. Bilateral knee sv pain x 2 days. Coronavirus screen: Client denies travel out of the [place] in the last 14 days. At this time, the client does not indicate any symptoms associated with coronavirus-19. Ebola Screen: No symptoms or risks identified at this time. Risk Assessment: Do you want to hurt yourself or someone else? Patient reports no desire to harm self or others. Onset of symptoms was February 06, 2021. 15:59 Method Of Arrival: Ambulatory sv 15:59 Acuity: MARYAM 4 sv 16:00 Initial Sepsis Screen: Does the patient meet any 2 criteria? No. Patient's initial sv sepsis screen is negative. Does the patient have a suspected source of infection? No. Patient's initial sepsis screen is negative. Triage Assessment: 16:02 General: Appears in no apparent distress. comfortable, Behavior is calm, cooperative, sv appropriate for age. Pain: Complains of pain in throat. Neuro: Level of Consciousness is awake, alert, obeys commands, Oriented to person, place, time, situation, Gait is steady. Respiratory: Respiratory effort is even, unlabored. Historical: - Allergies: 15:59 Iodine; sv - PMHx: 15:59 Anxiety; Chronic pain; Diabetes - NIDDM; Hypertension; sv - Immunization history:: Client reports receiving the 2nd dose of the Covid vaccine, Client reports receiving the 1st dose of the Covid vaccine. - Social history:: Smoking status: Patient reports the use of cigarette tobacco products, smokes one-half pack cigarettes per day. Screenin:32 Abuse screen: Denies threats or abuse. Denies injuries from another. Nutritional sv screening: No deficits noted. Tuberculosis screening: No symptoms or risk factors identified. Fall Risk None identified. Assessment: 17:32 Reassessment: Patient appears in no apparent distress at this time. No changes from sv previously documented assessment. Patient and/or family updated on plan of care and expected duration. Pain level reassessed. Patient is alert, oriented x 3, equal unlabored respirations, skin warm/dry/pink. Vital Signs: 16:00 BP 115 / 74; Pulse 81; Resp 16; Temp 98.4; Pulse Ox 100% ; Weight 110.22 kg; Height 5 sv ft. 8 in. (172.72 cm); 16:00 Body Mass Index 36.95 (110.22 kg, 172.72 cm) sv ED Course: 15:40 Patient arrived in ED. cl3 15:58 Arm band placed on. sv 15:59 Triage completed. sv 16:03 Glory Dean FNP-C is PHCP. kb 16:03 Maxwell Garcia MD is Attending Physician. kb 16:45 COVID-19 : Document "Date of Symptom Onset" if Symptomatic. Sent. sv 17:32 Sonya Savage RN is Primary Nurse. sv 17:32 Patient has correct armband on for positive identification. sv 17:32 No provider procedures requiring assistance completed. Patient did not have IV access sv during this emergency room visit. Administered Medications: 17:32 Drug: Ketorolac 30 mg Route: IM; Site: right deltoid; sv Outcome: 17:27 Discharge ordered by MD. kb 17:32 Discharged to home ambulatory. sv 17:32 Condition: stable 17:32 Discharge instructions given to patient, Instructed on discharge instructions, follow up and referral plans. Demonstrated understanding of instructions, follow-up care. 17:33 Patient left the ED. sv Signatures: Glory Dean FNP-C FNP-Ckb Verde, Stephanie, RN RN Justin Lantigua cl3 Corrections: (The following items were deleted from the chart) 16:02 16:00 Pulse 81bpm; Resp 16bpm; Pulse Ox 100%; Temp 98.4F; 110.22 kg; Height 5 ft. 8 sv in.; BMI: 36.9; sv 16:05 15:59 Chief complaint: Patient states: sore throat x 2 days. Bilateral knee pain x 2 sv days. sv
--- NOTE | 2021-02-08 17:29 | EDPHYS ---
Physician Documentation [facility] Name: Marie Carty Age: 50 yrs Sex: Male : 1970 Arrival Date: 02/08/2021 Time: 15:40 Bed Waiting Private MD: YURIDIA Physician Maxwell Garcia HPI: 02/08 16:42 This 50 yrs old Black Male presents to ER via Ambulatory with complaints of Sore Throat.kb 16:42 The patient presents with sore throat. The patient describes throat pain as constant. kb Onset: The symptoms/episode began/occurred 2 day(s) ago. Severity of symptoms: At their worst the symptoms were moderate, in the emergency department the symptoms are unchanged. Modifying factors: The symptoms are alleviated by nothing, the symptoms are aggravated by swallowing. Associated signs and symptoms: Pertinent positives: Sore throat bodyaches. The patient has not experienced similar symptoms in the past. The patient has not recently seen a physician. Patient reports sore throat and body aches for 2 days. Also reports bilateral knee pain that is chronic but has been acting up lately as well. Denies injury or trauma recently.. Historical: - Allergies: 15:59 Iodine; sv - PMHx: 15:59 Anxiety; Chronic pain; Diabetes - NIDDM; Hypertension; sv - Immunization history:: Client reports receiving the 2nd dose of the Covid vaccine, Client reports receiving the 1st dose of the Covid vaccine. - Social history:: Smoking status: Patient reports the use of cigarette tobacco products, smokes one-half pack cigarettes per day. ROS: 16:41 Constitutional: Negative for fever, chills, and weight loss. kb 16:41 Constitutional: Positive for body aches. 16:41 ENT: Positive for sore throat. 16:41 MS/extremity: Positive for pain, of the right knee and left knee. 16:41 All other systems are negative. Exam: 16:41 Constitutional: This is a well developed, well nourished patient who is awake, alert, kb and in no acute distress. Head/Face: Normocephalic, atraumatic. Respiratory: Respirations even and unlabored. No increased work of breathing, no retractions or nasal flaring. Skin: Warm, dry with normal turgor. Normal color. MS/ Extremity: Pulses equal, no cyanosis. Neurovascular intact. Full, normal range of motion. Neuro: Awake and alert, GCS 15, oriented to person, place, time, and situation. Moves all extremities. Normal gait. Psych: Awake, alert, with orientation to person, place and time. Behavior, mood, and affect are within normal limits. 16:41 ENT: Posterior pharynx: Airway: normal, no evidence of obstruction, Tonsils: bilaterally enlarged, with erythema, swelling, that is mild, erythema, that is mild. Vital Signs: 16:00 BP 115 / 74; Pulse 81; Resp 16; Temp 98.4; Pulse Ox 100% ; Weight 110.22 kg; Height 5 sv ft. 8 in. (172.72 cm); 16:00 Body Mass Index 36.95 (110.22 kg, 172.72 cm) sv MDM: 16:03 Patient medically screened. 16:41 Data reviewed: vital signs, nurses notes. Data interpreted: Pulse oximetry: on room air kb is 100 %. Interpretation: normal. Counseling: I had a detailed discussion with the patient and/or guardian regarding: the historical points, exam findings, and any diagnostic results supporting the discharge/admit diagnosis, lab results, the need for outpatient follow up, a family practitioner, to return to the emergency department if symptoms worsen or persist or if there are any questions or concerns that arise at home. 02/08 16:04 Order name: Strep; Complete Time: 16:53 sv 02/08 16:06 Order name: COVID-19 : Document "Date of Symptom Onset" if Symptomatic. sv 02/08 16:45 Order name: Throat Culture EDMS 02/08 17:25 Order name: SARS-COV-2 RT PCR; Complete Time: 17:26 EDMS Administered Medications: 17:32 Drug: Ketorolac 30 mg Route: IM; Site: right deltoid; sv Disposition: 02/09 14:50 Co-signature as Attending Physician, Maxwell Garcia MD I agree with the assessment and clarissa plan of care. Disposition Summary: 02/08/21 17:27 Discharge Ordered Location: Home kb Condition: Stable kb Diagnosis - Acute pharyngitis, unspecified kb Followup: kb - With: Emergency Department - When: As needed - Reason: Worsening of condition Followup: kb - With: Private Physician - When: 2 - 3 days - Reason: Recheck today's complaints, Continuance of care, Re-evaluation by your physician Discharge Instructions: - Discharge Summary Sheet kb - Pharyngitis, [id number] kb Forms: - Medication Reconciliation Form kb - Thank You Letter kb - Antibiotic Education kb - Prescription Opioid Use kb Signatures: Dispatcher [employer] EDGlory Harris FNP-C FNP-Ckb Verde, Stephanie, RN RN sv Anderson, Corey, MD MD cha Corrections: (The following items were deleted from the chart) 02/08 16:25 16:07 CORONAVIRUS ordered. EDUT EDUT
[2021-02-08 17:41] VITALS: BP 115/74; TEMP 98.4; O2SAT 100
[2021-02-08] MEDS ORDERED: KETOROLAC 30 MG/ML INJ ONE (17:52)
== END 2021-02-08 17:33 | disposition home or self-care (01) ==
LOC: ER 15:34
DX: J02.9 Acute pharyngitis, unspecified (principal); Z20.822 Contact with and (suspected) exposure to COVID-19; I10 Essential (primary) hypertension; F17.210 Nicotine dependence, cigarettes, uncomplicated; Z91.048 Other nonmedicinal substance allergy status
CPT/HCPCS: 87070; 87081; 96372; 99283; U0003

== ENCOUNTER 2021-04-19 01:18 | Emergency (ER) | payer OTHER ==
[2021-04-19] MEDS ORDERED: MORPHINE 4 MG/ML SYR ONE (01:43)
[2021-04-19] MEDS ORDERED: ONDANSETRON 4 MG/2 ML VIAL ONE (01:43)
[2021-04-19 02:12] LABS: Basophils % 0.5 % (0-1.3); Hematocrit 35.9 % (39.6-49.0); MPV 8.5 fL (7.6-11.3); RBC Red Blood Cell Count 3.87 M/uL (4.33-5.43)
[2021-04-19 02:25] LABS: ALT/SGPT 49 U/L (12-78); AST/SGOT 49 U/L (15-37); Albumin 3.6 g/dL (3.4-5.0); Alkaline Phosphatase 61 U/L (45-117); BUN Blood Urea Nitrogen 11 mg/dL (7-18); Bicarbonate 26 mmol/L (21-32); Bilirubin Direct 0.1 mg/dL (0-0.2); Bilirubin Total 0.3 mg/dL (0.2-1.0); Creatine Phosphokinase 684 U/L (39-308); Glucose Level 111 mg/dL (74-106); Lipase 121 U/L (73-393); Potassium 3.5 mmol/L (3.5-5.1); Protein, Total 7.2 g/dL (6.4-8.2); Sodium Level 140 mmol/L (136-145)
[2021-04-19] MEDS ORDERED: NA CHLORIDE 0.9% 1,000 ML ONE ×2 (02:33→03:02)
[2021-04-19] MEDS ORDERED: KETOROLAC 30 MG/ML INJ ONE (03:01)
[2021-04-19 03:15] LABS: Urine Blood Trace-intact (Negative); Urine Glucose Negative (Negative); Urine Protein Negative (Negative)
--- NOTE | 2021-04-19 03:33 | ER ---
Nurse's Notes [facility] Name: Marie Carty Age: 51 yrs Sex: Male : 1970 Arrival Date: 04/19/2021 Time: 01:24 Bed 5 Private MD: Diagnosis: Lower abdominal pain, unspecified Presentation: 04/19 01:33 Chief complaint: Patient states: was cutting trees and moving them, reports waking up em with pain in the groin and low back pain, denies any injury. Coronavirus screen: Vaccine status: Patient reports receiving the 2nd dose of the covid vaccine. Ebola Screen: Patient negative for fever greater than or equal to 101.5 degrees Fahrenheit, and additional compatible Ebola Virus Disease symptoms Patient denies exposure to infectious person. Patient denies travel to an Ebola-affected area in the 21 days before illness onset. No symptoms or risks identified at this time. Initial Sepsis Screen: Does the patient meet any 2 criteria? No. Patient's initial sepsis screen is negative. Does the patient have a suspected source of infection? No. Patient's initial sepsis screen is negative. Risk Assessment: Do you want to hurt yourself or someone else? Patient reports no desire to harm self or others. Onset of symptoms was April 19, 2021. 01:33 Method Of Arrival: Ambulatory em 01:33 Acuity: MARYAM 4 em 01:38 Acuity: MARYAM 3 em Triage Assessment: 01:33 General: Appears in no apparent distress. uncomfortable, Behavior is calm, cooperative. em Pain: Complains of pain in lumbar area and pelvis Pain currently is 10 out of 10 on a pain scale. Neuro: Level of Consciousness is awake, alert, obeys commands, Oriented to person, place, time, situation. Cardiovascular: Capillary refill < 3 seconds Patient's skin is warm and dry. Respiratory: Airway is patent Respiratory effort is even, unlabored, Respiratory pattern is regular. Musculoskeletal: Range of motion:. Historical: - Allergies: :34 Iodine; em - PMHx: :34 Anxiety; Chronic pain; Diabetes - NIDDM; Hypertension; em - Immunization history:: Adult Immunizations up to date. - Social history:: Smoking status: Patient reports the use of cigarette tobacco products, smokes one pack cigarettes per day. Screenin:00 Abuse screen: Denies threats or abuse. Denies injuries from another. Nutritional bs2 screening: No deficits noted. Tuberculosis screening: No symptoms or risk factors identified. Fall Risk None identified. Assessment: 02:00 General: Appears in no apparent distress. uncomfortable, well groomed, well developed, bs2 well nourished, Behavior is calm, cooperative, appropriate for age. Pain: Complains of pain in lumbar area Pain currently is 8 out of 10 on a pain scale. Neuro: No deficits noted. Neuro: Level of Consciousness is awake, alert, obeys commands, Oriented to person, place, time, situation, Appropriate for age Automatic Clipper are equal bilaterally Moves all extremities. Full function Gait is steady, Speech is normal, Facial symmetry appears normal, Pupils are PERRLA. Cardiovascular: No deficits noted. Respiratory: No deficits noted. GI: No deficits noted. : No deficits noted. EENT: No deficits noted. Derm: No deficits noted. Musculoskeletal: Circulation, motion, and sensation intact. Range of motion: limited in lumbar area Reports pain in lumbar area. Vital Signs: 01:33 BP 141 / 87; Pulse 83; Resp 20; Temp 97.9(O); Pulse Ox 99% on R/A; Weight 111.13 kg; em Height 5 ft. 8 in. (172.72 cm); Pain 10/10; 04:03 BP 116 / 70; Pulse 80; Resp 15; Temp 98.6; Pulse Ox 100% ; Pain 5/10; bs2 01:33 Body Mass Index 37.25 (111.13 kg, 172.72 cm) em ED Course: 01:24 Patient arrived in ED. bp1 01:28 Naren Espinoza MD is Attending Physician. mh7 01:34 Triage completed. em 01:34 Arm band placed on. em 01:40 Tricia Jha, JACQUES is Primary Nurse. bs2 02:00 Patient has correct armband on for positive identification. Bed in low position. Call bs2 light in reach. Side rails up X 1. property assessment monitor on. Pulse ox on. NIBP on. Door closed. Noise minimized. Lights dimmed. Warm blanket given. 02:02 Inserted saline lock: 20 gauge in right antecubital area, using aseptic technique. df1 02:03 Creatine Phosphokinase Sent. df1 02:03 Lipase Sent. df1 02:03 Liver (Hepatic) Function Sent. df1 02:03 CBC with Automated Diff Sent. df1 02:03 Basic Metabolic Panel Sent. df1 02:03 CPK Sent. df1 02:04 Basic Metabolic Panel Sent. df1 02:04 CBC with Diff Sent. df1 02:04 Hepatic Function Sent. df1 02:04 Lipase Sent. df1 02:20 CT Abd/Pelvis - IV Contrast Only In Process Unspecified. EDMS 03:17 Urine Drug Screen Sent. bs2 04:02 No provider procedures requiring assistance completed. IV discontinued, intact, bs2 bleeding controlled, No redness/swelling at site. Administered Medications: 02:03 Drug: morphine 4 mg Route: IVP; Site: right antecubital; df1 03:00 Follow up: Response: No adverse reaction; Pain is unchanged, physician notified bs2 02:03 Drug: Zofran (Ondansetron) 4 mg Route: IVP; Site: right antecubital; df1 04:04 Follow up: Response: No adverse reaction bs2 02:46 Drug: NS 0.9% 1000 ml Route: IV; Rate: 1000 ml; Site: right antecubital; bs2 04:04 Follow up: IV Status: Completed infusion; IV Intake: 1000ml bs2 03:00 Drug: NS 0.9% 1000 ml Route: IV; Rate: 1 bolus; Site: right antecubital; bs2 04:04 Follow up: IV Status: Completed infusion; IV Intake: 800ml bs2 03:00 Drug: Ketorolac 30 mg Route: IVP; Site: right antecubital; bs2 04:04 Follow up: Response: No adverse reaction; Pain is decreased bs2 Intake: 04:04 IV: 1000ml; Total: 1000ml. bs2 04:04 IV: 800ml; Total: 1800ml. bs2 Outcome: 03:33 Discharge ordered by . meg 04:02 Discharged to home ambulatory. bs2 04:02 Condition: improved 04:02 Discharge instructions given to patient, Instructed on discharge instructions, follow up and referral plans. Demonstrated understanding of instructions, follow-up care. 04:05 Patient left the ED. bs2 Signatures: Dispatcher [employer] Fito Brumfield, RN RN Margo German Maurice, MD MD mh7 Smith, Bridget, JACQUES RN bs2 Krystina Banuelos df1
--- NOTE | 2021-04-19 03:34 | EDPHYS ---
Physician Documentation [facility] Name: Marie Carty Age: 51 yrs Sex: Male : 1970 Arrival Date: 04/19/2021 Time: 01:24 Bed 5 Private MD: ED Physician Naren Espinoza HPI: 04/19 02:09 This 51 yrs old Black Male presents to ER via Ambulatory with complaints of Back Pain. mh7 02:09 The patient presents with abdominal pain in the lower abdomen. Onset: The mh7 symptoms/episode began/occurred yesterday. The symptoms radiate to back. Associated signs and symptoms: Pertinent negatives: nausea, vomiting, and diarrhea, nausea and vomiting, anorexia, blood in stools, chest pain, constipation, diarrhea, dysuria, fever, headache, hematuria, nausea, palpitations, shortness of breath, testicular pain, vomiting, vomiting blood. The symptoms are described as intermittent, vague, waxing/waning. Modifying factors: The symptoms are alleviated by nothing, the symptoms are aggravated by movement, touching the area. Severity of pain: At its worst the pain was moderate last night, in the emergency department the pain is unchanged. Historical: - Allergies: 01:34 Iodine; em - PMHx: 01:34 Anxiety; Chronic pain; Diabetes - NIDDM; Hypertension; em - Immunization history:: Adult Immunizations up to date. - Social history:: Smoking status: Patient reports the use of cigarette tobacco products, smokes one pack cigarettes per day. ROS: 02:09 Constitutional: Negative for fever, chills, and weight loss, Eyes: Negative for injury, mh7 pain, redness, and discharge, ENT: Negative for injury, pain, and discharge, Neck: Negative for injury, pain, and swelling, Cardiovascular: Negative for chest pain, palpitations, and edema, Respiratory: Negative for shortness of breath, cough, wheezing, and pleuritic chest pain, : Negative for injury, bleeding, discharge, and swelling, MS/Extremity: Negative for injury and deformity, Skin: Negative for injury, rash, and discoloration, Neuro: Negative for headache, weakness, numbness, tingling, and seizure, Psych: Negative for depression, anxiety, suicide ideation, homicidal ideation, and hallucinations, Allergy/Immunology: Negative for hives, rash, and allergies, Endocrine: Negative for neck swelling, polydipsia, polyuria, polyphagia, and marked weight changes, Hematologic/Lymphatic: Negative for swollen nodes, abnormal bleeding, and unusual bruising. Exam: 02:09 Constitutional: This is a well developed, well nourished patient who is awake, alert, mh7 and in no acute distress. Head/Face: Normocephalic, atraumatic. Eyes: Pupils equal round and reactive to light, extra-ocular motions intact. Lids and lashes normal. Conjunctiva and sclera are non-icteric and not injected. Cornea within normal limits. Periorbital areas with no swelling, redness, or edema. Neck: Trachea midline, no thyromegaly or masses palpated, and no cervical lymphadenopathy. Supple, full range of motion without nuchal rigidity, or vertebral point tenderness. No Meningismus. Chest/axilla: Normal chest wall appearance and motion. Nontender with no deformity. No lesions are appreciated. Cardiovascular: Regular rate and rhythm with a normal S1 and S2. No gallops, murmurs, or rubs. Normal PMI, no JVD. No pulse deficits. Respiratory: Lungs have equal breath sounds bilaterally, clear to auscultation and percussion. No rales, rhonchi or wheezes noted. No increased work of breathing, no retractions or nasal flaring. 02:09 Skin: Warm, dry with normal turgor. Normal color with no rashes, no lesions, and no evidence of cellulitis. MS/ Extremity: Pulses equal, no cyanosis. Neurovascular intact. Full, normal range of motion. Neuro: Awake and alert, GCS 15, oriented to person, place, time, and situation. Cranial nerves II-XII grossly intact. Motor strength 5/5 in all extremities. Sensory grossly intact. Cerebellar exam normal. Normal gait. Psych: Awake, alert, with orientation to person, place and time. Behavior, mood, and affect are within normal limits. 02:09 Abdomen/GI: Inspection: obese Bowel sounds: normal, in all quadrants, Palpation: moderate abdominal tenderness, in the right lower quadrant and left lower quadrant, mass, is not appreciated, rebound tenderness, is not appreciated, voluntary guarding, is not appreciated, involuntary guarding, is not appreciated, no appreciated organomegaly, Rectal exam: the exam is deferred, because of patient request, Indicators: McBurney's point is not tender, Gomez's sign is negative, Rovsing's sign is negative, Obturator sign is negative, Psoas sign is negative, Liver: no appreciated palpable abnormalities, Hernia: not appreciated. 02:09 Back: normal spinal alignment noted, CVA tenderness, is absent, vertebral tenderness, mh7 is not appreciated, muscle spasm, is not present. Vital Signs: 01:33 BP 141 / 87; Pulse 83; Resp 20; Temp 97.9(O); Pulse Ox 99% on R/A; Weight 111.13 kg; em Height 5 ft. 8 in. (172.72 cm); Pain 10/10; 04:03 BP 116 / 70; Pulse 80; Resp 15; Temp 98.6; Pulse Ox 100% ; Pain 5/10; bs2 01:33 Body Mass Index 37.25 (111.13 kg, 172.72 cm) em MDM: 03:31 Differential diagnosis: appendicitis, bowel obstruction, diverticulitis, non-specific mh7 abd pain, Pyelonephritis, Ureterolithiasis, urinary tract infection. Data reviewed: vital signs, nurses notes, lab test result(s), CBC, electrolytes, urinalysis, radiologic studies, CT scan. Data interpreted: Pulse oximetry: on room air is 99 %. Interpretation: normal. Counseling: I had a detailed discussion with the patient and/or guardian regarding: the historical points, exam findings, and any diagnostic results supporting the discharge/admit diagnosis, the presence of at least one elevated blood pressure reading (>120/80) during this emergency department visit, lab results, radiology results, the need for outpatient follow up. Counseling: I had a detailed discussion with the patient and/or guardian regarding: to return to the emergency department if symptoms worsen or persist or if there are any questions or concerns that arise at home. Response to treatment: the patient's symptoms have resolved after treatment, the patient's blood pressure is in an acceptable range, mental status has returned to baseline, the patient no longer shows bradycardia, the patient is not short of breath, the patient is not tachycardic, the patient's pain is gone, the patient's temperature has normalized. 03:33 Patient medically screened. [facility] 04/19 01:37 Order name: Basic Metabolic Panel [facility] 04/19 01:37 Order name: CBC with Diff [facility] 04/19 01:37 Order name: Hepatic Function [facility] 04/19 01:37 Order name: Lipase [facility] 04/19 01:37 Order name: CPK [facility] 04/19 01:38 Order name: Basic Metabolic Panel; Complete Time: 02:35 EDMS 04/19 01:38 Order name: CBC with Automated Diff; Complete Time: 02:35 EDAZ 04/19 01:38 Order name: Liver (Hepatic) Function; Complete Time: 02:35 EDMS 04/19 01:38 Order name: Lipase; Complete Time: 02:35 EDMS 04/19 01:38 Order name: Creatine Phosphokinase; Complete Time: 02:35 EDMS 04/19 01:38 Order name: CT Abd/Pelvis - IV Contrast Only [facility] 04/19 03:15 Order name: Urine Dipstick-Ancillary; Complete Time: 03:21 [facility] 04/19 03:16 Order name: Urine Drug Screen [facility] 04/19 01:37 Order name: IV Saline Lock; Complete Time: 02:04 [facility] 04/19 01:37 Order name: Labs collected and sent; Complete Time: 02:04 [facility] 04/19 01:37 Order name: Urine Dipstick-Ancillary (obtain specimen); Complete Time: 03:17 [facility] 04/19 01:37 Order name: EKG; Complete Time: 01:38 [facility] 04/19 01:37 Order name: EKG - Nurse/Tech; Complete Time: 02:03 [facility] Administered Medications: 02:03 Drug: morphine 4 mg Route: IVP; Site: right antecubital; df1 03:00 Follow up: Response: No adverse reaction; Pain is unchanged, physician notified bs2 02:03 Drug: Zofran (Ondansetron) 4 mg Route: IVP; Site: right antecubital; df1 04:04 Follow up: Response: No adverse reaction bs2 02:46 Drug: NS 0.9% 1000 ml Route: IV; Rate: 1000 ml; Site: right antecubital; bs2 04:04 Follow up: IV Status: Completed infusion; IV Intake: 1000ml bs2 03:00 Drug: NS 0.9% 1000 ml Route: IV; Rate: 1 bolus; Site: right antecubital; bs2 04:04 Follow up: IV Status: Completed infusion; IV Intake: 800ml bs2 03:00 Drug: Ketorolac 30 mg Route: IVP; Site: right antecubital; bs2 04:04 Follow up: Response: No adverse reaction; Pain is decreased bs2 Disposition Summary: 04/19/21 03:33 Discharge Ordered Location: Home [facility] Problem: new [facility] Symptoms: have improved [facility] Condition: Stable [facility] Diagnosis - Lower abdominal pain, unspecified [facility] Followup: [facility] - With: Private Physician - When: 1 - 2 days - Reason: Worsening of condition, Recheck today's complaints, Continuance of care, Re-evaluation by your physician Discharge Instructions: - Discharge Summary Sheet [facility] - Abdominal Pain, Adult, [id number] Forms: - Medication Reconciliation Form [facility] - Thank You Letter [facility] - Antibiotic Education [facility] - Prescription Opioid Use [facility] Signatures: Dispatcher [employer] Fito Brumfield, Naren Floyd RN, MD MD 7 Tricia Jha RN RN bs2 Krystina Banuelos df1
[2021-04-19 03:42] LABS: Barbiturates NEGATIVE (NEGATIVE); Benzodiazepines NEGATIVE (NEGATIVE); Cocaine NEGATIVE (NEGATIVE); METHAMPHETAM NEGATIVE (NEGATIVE); Methadone NEGATIVE (NEGATIVE); Opiates POSITIVE (NEGATIVE); Phencyclidine NEGATIVE (NEGATIVE); THC Cannibis NEGATIVE (NEGATIVE)
[2021-04-19 04:15] VITALS: BP 116/70; TEMP 98.6; O2SAT 100
--- NOTE | 2021-04-19 11:40 | RAD REPORT ---
EXAM DESCRIPTION: CT - Abdomen Pelvis W Contrast - 04/19/2021 6:47 am CLINICAL HISTORY: The patient is 51 years old and is Male; Abd pain;Flank pain TECHNIQUE: Axial computed tomography images of the abdomen and pelvis with intravenous contrast. S agittal and coronal reformatted images were created and reviewed. This CT exam was performed using one or more of the following dose reduction techniques: automated exposure control, adjustment of t he mA and/or kV according to patient size, and/or use of iterative reconstruction technique. COMPARISON: CT abdomen and pelvis with contrast November 28, 2020. FINDINGS: Lung bases: Unremarkable. No mass. No consolidation. ABDOMEN: Liver: Mild hepatomegaly. Diffuse fatty infiltration of the liver. Gallbladder and bile ducts: Unremarkable. No calcified stones. No ductal dilation. Pancreas: Unremarkable. No mass. No ductal dilation. Spleen: Unremarkable. No splenomegaly. Adrenals: Unremarkable. No mass. Kidneys and ureters: Unremarkable. No solid mass. No hydronephrosis. Stomach and bowel: Unremarkable. No obstruction. No mucosal thickening. PELVIS: Appendix: No findings to suggest acute appendicitis. Bladder: Unremarkable. No mass. Reproductive: Unremarkable as visualized. ABDOMEN and PELVIS: Intraperitoneal space: Unremarkable. No free air. No significant fluid collection. Bones/joints: Posterior donald and screw fixation from L4 to 5. No acute fracture. No dislocation. Soft tissues: Unremarkable. Vasculature: Scattered atherosclerotic vascular calcifications. No abdominal aortic aneurysm. Lymph nodes: Unremarkable. No enlarged lymph nodes. IMPRESSION: 1. No acute finding in the abdomen/pelvis. 2. Mild hepatomegaly. 3. Diffuse fatty infiltration of the liver. Electronically signed by: Brian Gunn MD 04/19/2021 3:11 AM CDT Due to temporary technical issues with the PACS/Fluency reporting system, reports are being signed by the in house radiologist without review as a courtesy to ensure prompt reporting. The interpreting r adiologist is fully responsible for the content of the report.
--- NOTE | 2021-04-19 13:12 | EKG ---
Test Date: 2021-04-19 Test Time: 01:58:02 Professor Of Surgery: MEASUREMENT RESULTS: Intervals: Rate: 81 NE: 182 QRSD: 80 QT: 372 QTc: 432 Rattan: P: 48 NE: 182 QRS: 32 T: 45 INTERPRETIVE STATEMENTS: Normal sinus rhythm Normal ECG Compared to ECG 11/28/2020 09:19:37 No significant changes Electronically Signed On 04-19-21 13:10:21 CDT by Shun Ortega
== END 2021-04-19 04:05 | disposition home or self-care (01) ==
LOC: ER 01:18
DX: R10.30 Lower abdominal pain, unspecified (principal); I10 Essential (primary) hypertension; F17.210 Nicotine dependence, cigarettes, uncomplicated; Z91.048 Other nonmedicinal substance allergy status
CPT/HCPCS: 96361; 93005; 85025; 80048; 36415; 82550; 82565; 80076; 81003; 83690; 80307; 74177; 96375; 96374; 99284; Q9967; J7030 ×2; J2405

== ENCOUNTER 2021-05-14 19:19 | Emergency (ER) | payer OTHER ==
--- NOTE | 2021-05-14 19:45 | ER ---
[facility] Name: Marie Carty Age: 51 yrs Sex: Male : 1970 Arrival Date: 05/14/2021 Time: 19:21 Bed Waiting Private MD: Diagnosis: ED Course: 05/14 19:21 Patient arrived in ED. bp1 Administered Medications: No medications were administered Outcome: 19:44 Patient left the ED. ld1 Signatures: Margo Brown bp1 Gregoria Hector, RN RN ld1
== END 2021-05-14 19:44 | disposition left against medical advice (07) ==
LOC: ER 19:19
DX: Z53.21 Procedure and treatment not carried out due to patient leaving prior to being seen by health care provider (principal)

== ENCOUNTER 2021-11-30 13:26 | Emergency (ER) | payer OTHER ==
[2021-11-30] MEDS ORDERED: HYDROCODONE/APAP 5/325 MG TAB ONE (14:25)
[2021-11-30] MEDS ORDERED: KETOROLAC 30 MG/ML INJ ONE (14:25)
--- NOTE | 2021-11-30 15:04 | RAD REPORT ---
EXAM DESCRIPTION: RAD - Femur Right - 11/30/2021 2:51 pm CLINICAL HISTORY: right thigh pain COMPARISON: No comparisons FINDINGS: No acute fracture. No malalignment. No significant focal degenerative changes. IMPRESSION: No acute osseous abnormality involving the right femur.
--- NOTE | 2021-11-30 15:05 | RAD REPORT ---
EXAM DESCRIPTION: RAD - Pelvis - 11/30/2021 2:51 pm CLINICAL HISTORY: pelvic pain COMPARISON: No comparisons FINDINGS/IMPRESSION: No acute fracture. No malalignment. Mild bilateral acetabular degenerative ríos ges. Hardware in the lower spine.
--- NOTE | 2021-11-30 16:03 | EDPHYS ---
Physician Documentation [facility] Name: Marie Carty Age: 51 yrs Sex: Male : 1970 Arrival Date: 11/30/2021 Time: 13:33 Bed 10 Private MD: ED Physician Greg Willis HPI: 11/30 13:56 This 51 yrs old Black Male presents to ER via Wheelchair with complaints of Leg Injury. jmm 13:56 The patient presents with an injury, pain. Onset: The symptoms/episode began/occurred jmm acutely, just prior to arrival. This is a 51 year old male with a history of dm, htn, that presents to the ED with complaints of acute onset right posterior leg pain which occurred after dropping a compressor while lifting it. Patient states feeling a pop and has not been able to put weight on his right leg since. Denies other injury. Denies back pain. Denies bowel or bladder issues. . Historical: - Allergies: 13:49 Iodine; iw - PMHx: 13:49 Chronic pain; Diabetes - NIDDM; Hypertension; Anxiety; iw - Immunization history:: Adult Immunizations unknown. - Social history:: Smoking status: unknown. ROS: 13:56 Constitutional: Negative for fever, chills, and weight loss, Cardiovascular: Negative jmm for chest pain, palpitations, and edema, Respiratory: Negative for shortness of breath, cough, wheezing, and pleuritic chest pain. 13:56 MS/extremity: Positive for pain. 13:56 All other systems are negative. Exam: 13:56 Constitutional: This is a well developed, well nourished patient who is awake, alert, jmm and in no acute distress. Head/Face: atraumatic. Eyes: EOMI, no conjunctival erythema appreciated ENT: Moist Mucus Membranes Neck: Trachea midline, Supple Chest/axilla: Normal chest wall appearance and motion. Cardiovascular: Regular rate and rhythm. No edema appreciated Respiratory: Normal respirations, no respiratory distress appreciated Abdomen/GI: Non distended, soft Back: Normal ROM Skin: General appearance color normal 13:56 Musculoskeletal/extremity: FROM noted to the right leg, compartments are soft, FROM noted to the right hip and knee, right posterior thigh ttp. 13:56 Skin: Appearance: Color: normal in color. 13:56 Neuro: Orientation: is normal, Mentation: is normal, Memory: is normal. 13:56 Psych: Behavior/mood is pleasant, cooperative. Vital Signs: 13:48 BP 120 / 80; Pulse 62; Resp 16; Pulse Ox 98% on R/A; Weight 111.13 kg; Height 5 ft. 8 iw in. (172.72 cm); Pain 5/10; 13:48 Body Mass Index 37.25 (111.13 kg, 172.72 cm) iw MDM: 13:56 Patient medically screened. [facility] 16:01 Data reviewed: vital signs, nurses notes. Counseling: I had a detailed discussion with sin the patient and/or guardian regarding: the historical points, exam findings, and any diagnostic results supporting the discharge/admit diagnosis, radiology results, the need for outpatient follow up, to return to the emergency department if symptoms worsen or persist or if there are any questions or concerns that arise at home. 11/30 13:57 Order name: Pelvis XRAY; Complete Time: 15:09 [facility] 11/30 13:57 Order name: Femur Right XRAY; Complete Time: 15:09 [facility] 11/30 15:09 Order name: Crutches; Complete Time: 15:48 [facility] Administered Medications: 14:24 Drug: Ketorolac 30 mg Route: IM; Site: left gluteus; aa5 15:00 Follow up: Response: No adverse reaction iw 14:24 Drug: HYDROcodone-acetaminophen 5 mg-325 mg 1 tabs Route: PO; aa5 15:00 Follow up: Response: No adverse reaction iw Disposition: 19:54 Co-signature as Attending Physician, Greg Willis DO I was immediately available on-site ms3 in the Emergency Department for consultation in the care of the patient.. Disposition Summary: 11/30/21 16:03 Discharge Ordered Location: Home [facility] Condition: Stable [facility] Diagnosis - Strain of adductor muscle, fascia and tendon of right thigh [facility] Followup: [facility] - With: Ugo Cramer MD - When: 2 - 3 days - Reason: Recheck today's complaints, Continuance of care, Re-evaluation by your physician Discharge Instructions: - Discharge Summary Sheet [facility] - [facility] Forms: - Medication Reconciliation Form [facility] - Thank You Letter lidny - Antibiotic Education m - Prescription Opioid Use jmm - Work release form iw Prescriptions: - Diclofenac Sodium 75 mg Oral Tablet Sustained Release - take 1 tablet by ORAL route 2 times per day; 30 tablet; Refills: 0, Product jmm Selection Permitted - orphenadrine citrate 100 mg Oral Tablet Sustained Release - take 1 tablet by ORAL route 2 times per day As needed; 20 tablet; Refills: 0, jmm Product Selection Permitted Signatures: Dispatcher [employer] Brayden Shaw PA PA jmm Williams, Irene, RN RN iw Calderon, Audri, RN RN aa5 Greg Willis DO DO ms3
--- NOTE | 2021-11-30 16:03 | ER ---
Nurse's Notes [facility] Name: Marie Carty Age: 51 yrs Sex: Male : 1970 Arrival Date: 11/30/2021 Time: 13:33 Bed 10 Private MD: Diagnosis: Strain of adductor muscle, fascia and tendon of right thigh Presentation: 11/30 13:48 Chief complaint: Patient states: was trying to lift an air compressor and it fell off iw the back if tailgate, it buckled his right leg and he felt a pop in back of his thigh and now he can't put pressure on it. Coronavirus screen: At this time, the client does not indicate any symptoms associated with coronavirus-19. Ebola Screen: Patient negative for fever greater than or equal to 101.5 degrees Fahrenheit, and additional compatible Ebola Virus Disease symptoms Patient denies exposure to infectious person. Patient denies travel to an Ebola-affected area in the 21 days before illness onset. No symptoms or risks identified at this time. Initial Sepsis Screen: Does the patient meet any 2 criteria? No. Patient's initial sepsis screen is negative. Does the patient have a suspected source of infection? No. Patient's initial sepsis screen is negative. Risk Assessment: Do you want to hurt yourself or someone else? Patient reports no desire to harm self or others. Onset of symptoms was November 30, 2021. 13:48 Method Of Arrival: Wheelchair iw 13:48 Acuity: MARYAM 4 iw Triage Assessment: 16:19 General: Behavior is calm. iw 16:20 Pain: Complains of pain in right leg. iw Historical: - Allergies: 13:49 Iodine; iw - PMHx: 13:49 Chronic pain; Diabetes - NIDDM; Hypertension; Anxiety; iw - Immunization history:: Adult Immunizations unknown. - Social history:: Smoking status: unknown. Screenin:19 Abuse screen: Denies threats or abuse. Denies injuries from another. Nutritional iw screening: No deficits noted. Tuberculosis screening: No symptoms or risk factors identified. Fall Risk Fall in past 12 months (25 points). Assessment: 14:25 General: Appears uncomfortable. Neuro: Level of Consciousness is awake, alert, obeys aa5 commands, Oriented to person, place, time, situation. Respiratory: Airway is patent Respiratory effort is even, unlabored, Respiratory pattern is regular, symmetrical. Derm: Skin is dry, Skin is normal, Skin temperature is warm. 14:25 Reassessment: Awaiting x-rays . aa5 Vital Signs: 13:48 BP 120 / 80; Pulse 62; Resp 16; Pulse Ox 98% on R/A; Weight 111.13 kg; Height 5 ft. 8 iw in. (172.72 cm); Pain 5/10; 13:48 Body Mass Index 37.25 (111.13 kg, 172.72 cm) iw ED Course: 13:33 Patient arrived in ED. iw 13:49 Triage completed. iw 13:49 Arm band placed on. iw 13:52 Brayden Martin PA is PHCP. [facility] 13:52 Greg Willis DO is Attending Physician. m 14:05 Radha Flores, RN is Primary Nurse. iw 14:53 Pelvis XRAY In Process Unspecified. EDMS 14:53 Femur Right XRAY In Process Unspecified. EDMS 16:02 Ugo Cramer MD is Referral Physician. [facility] 16:18 No provider procedures requiring assistance completed. Patient did not have IV access iw during this emergency room visit. 16:19 Patient has correct armband on for positive identification. iw Administered Medications: 14:24 Drug: Ketorolac 30 mg Route: IM; Site: left gluteus; aa5 15:00 Follow up: Response: No adverse reaction iw 14:24 Drug: HYDROcodone-acetaminophen 5 mg-325 mg 1 tabs Route: PO; aa5 15:00 Follow up: Response: No adverse reaction iw Medication: 16:19 VIS not applicable for this client. iw Outcome: 16:03 Discharge ordered by . [facility] 16:18 Discharged to home ambulatory, with crutches. iw 16:18 Condition: good 16:18 Discharge instructions given to patient, Instructed on discharge instructions, follow up and referral plans. medication usage, Demonstrated understanding of instructions, follow-up care, medications, Prescriptions given X 2. 16:19 Patient left the ED. iw Signatures: Dispatcher [employer] EDMS Brayden Martin PA PA jmm Williams, Irene, RN RN iw Thuy Schuler RN RN aa5 Corrections: (The following items were deleted from the chart) 13:50 13:48 Pulse 62bpm; Resp 16bpm; Pulse Ox 98% RA; iw iw 13:50 13:48 Pulse 62bpm; Resp 16bpm; Pulse Ox 98% RA; 111.13 kg; Height 5 ft. 8 in.; BMI: iw 37.2; Pain 5/10; iw
[2021-11-30 16:31] VITALS: BP 120/80; O2SAT 98
== END 2021-11-30 16:19 | disposition home or self-care (01) ==
LOC: ER 13:26
DX: S76.211A Strain of adductor muscle, fascia and tendon of right thigh, initial encounter (principal); I10 Essential (primary) hypertension; E11.9 Type 2 diabetes mellitus without complications; Z91.048 Other nonmedicinal substance allergy status
CPT/HCPCS: 72170; 96372; 99283

== ENCOUNTER 2022-02-22 21:21 | Emergency (ER) | payer OTHER ==
[2022-02-22] MEDS ORDERED: ACETAMINOPHEN 325 MG TABLET ONE (22:03)
[2022-02-22] MEDS ORDERED: ONDANSETRON 4 MG/2 ML VIAL ONE (22:03)
[2022-02-22 22:28] LABS: Absolute Lymphocytes (CBC) 1.1 K/uL (0.7-4.9); Hematocrit 37.9 % (39.6-49.0); Lymphocytes % 18.6 % (15.3-44.8); MCV 91.4 fL (80-100); MPV 8.1 fL (7.6-11.3); RBC Red Blood Cell Count 4.14 M/uL (4.33-5.43)
[2022-02-22 22:41] LABS: Albumin 3.7 g/dL (3.4-5.0); Bilirubin Total 0.5 mg/dL (0.2-1.0); Potassium 4.2 mmol/L (3.5-5.1); Protein, Total 7.6 g/dL (6.4-8.2)
--- NOTE | 2022-02-22 22:45 | RAD REPORT ---
EXAM DESCRIPTION: CT - Abdomen Pelvis Wo Contrast - 02/22/2022 10:31 pm CLINICAL HISTORY: fever, abd pain, vomiting COMPARISON: Abdomen Pelvis W Contrast dated 04/19/2021 TECHNIQUE: Axial [address] imaging of the abdomen and pelvis was performed without IV contrast. No IV contrast was given because of allergy, abnormal renal function, patient refusal or physician re quest. No oral contrast administered. All CT scans are performed using dose optimization technique as appropriate and may include automated exposure control or mA/KV adjustment according to patient size. FINDINGS: No suspicious findings in the lung bases. Liver shows fatty infiltration pattern with spared parenchyma at the gallbladder fossa. No focal live r lesions seen on noncontrast imaging. No pancreatic or peripancreatic abnormality. Spleen is unremar kable. Gallbladder and biliary tree are also without suspicious finding. No hydronephrosis or suspicious renal mass. No obstructing or nonobstructing calculi seen. No signifi cant adrenal finding. Isodense renal masses and pyelonephritis cannot be excluded in the absence of I V contrast. Urinary bladder is tightly contracted limiting assessment. No bladder calculi. No gastric dilatation or gastric wall thickening. A few mildly prominent small bowel loops are presen t. There is no small bowel dilatation. Small bowel findings are nonspecific. Enteritis is possible. T he appendix is normal. No acute colon finding. No free air, free fluid or inflammatory stranding. No hernia, mass or bulky lymphadenopathy. No suspicious bony findings. IMPRESSION: Non-contrast enhanced CT abdomen and pelvis imaging show no acute or emergent finding. Nonspecific enteritis is not excluded. Full assessment is limited is the absence of IV contrast.
[2022-02-22 22:46] LABS: Urine Blood Negative (Negative); Urine Glucose Negative (Negative); Urine Protein Negative (Negative); Urine Specific Gravity 1.015 (1.005-1.030); Urine pH 8.5 (5.0-7.0)
[2022-02-22 23:13] LABS: Urine Bacteria <20 /HPF (<20)
--- NOTE | 2022-02-22 23:44 | ER ---
Nurse's Notes [facility] Name: Marie Carty Age: 51 yrs Sex: Male : 1970 Arrival Date: 02/22/2022 Time: 21:23 Bed 12 Private MD: Diagnosis: Vomiting, unspecified;Fever, unspecified Presentation: 02/22 21:28 Chief complaint: Patient states: "I have body aches, chills, and a fever". Coronavirus as6 screen: Client presents with at least one sign or symptom that may indicate coronavirus-19. Ebola Screen: No symptoms or risks identified at this time. Initial Sepsis Screen: Does the patient meet any 2 criteria? No. Patient's initial sepsis screen is negative. Does the patient have a suspected source of infection? No. Patient's initial sepsis screen is negative. Risk Assessment: Do you want to hurt yourself or someone else? Patient reports no desire to harm self or others. Onset of symptoms was February 21, 2022. 21:28 Method Of Arrival: Ambulatory as6 21:28 Acuity: MARYAM 3 as6 Triage Assessment: 21:34 General: Appears uncomfortable, Behavior is calm, cooperative. Pain: Complains of pain as6 in generalized. Historical: - Allergies: 21:33 Iodine; as6 - Home Meds: 21:33 lisinopril 10 mg oral tab 1 tab once daily [Active]; metformin 750 mg oral Tb24 1 tab as6 once daily [Active]; - PMHx: 21:33 Anxiety; Chronic pain; Diabetes - NIDDM; Hypertension; as6 - PSHx: 21:33 back; as6 - Immunization history:: Client reports receiving the 2nd dose of the Covid vaccine, moderna. - Social history:: Smoking status: Patient reports the use of cigarette tobacco products, smokes one pack cigarettes per day. - Family history:: not pertinent. - Hospitalizations: : No recent hospitalization is reported. Screenin:07 Abuse screen: Denies threats or abuse. Denies injuries from another. Nutritional eh3 screening: No deficits noted. Tuberculosis screening: No symptoms or risk factors identified. Fall Risk None identified. Assessment: 12:07 General: Appears in no apparent distress. comfortable, Behavior is calm, cooperative, eh3 appropriate for age. Pain: Complains of pain in head Pain does not radiate. Pain currently is 7 out of 10 on a pain scale. Neuro: Level of Consciousness is awake, alert, obeys commands, Oriented to person, place, time, situation. Cardiovascular: Capillary refill Patient's skin is warm and dry. Respiratory: Airway is patent Respiratory effort is even, unlabored. GI: Abdomen is flat, non-distended, Reports intolerance of food, nausea, tolerance of fluids, vomiting. : No signs and/or symptoms were reported regarding the genitourinary system. EENT: No signs and/or symptoms were reported regarding the EENT system. Derm: No signs and/or symptoms reported regarding the dermatologic system. Musculoskeletal: Circulation, motion, and sensation intact. Range of motion: intact in all extremities. 22:49 Reassessment: Patient and/or family updated on plan of care and expected duration. Pain eh3 level reassessed. Patient is alert, oriented x 3, equal unlabored respirations, skin warm/dry/pink. Patient states symptoms have improved. 23:52 Reassessment: Patient and/or family updated on plan of care and expected duration. Pain ld1 level reassessed. Patient is alert, oriented x 3, equal unlabored respirations, skin warm/dry/pink. Vital Signs: 21:28 BP 132 / 78; Pulse 87; Resp 18 S; Temp 99.6(O); Pulse Ox 96% on R/A; Weight 111.13 kg as6 (R); Height 5 ft. 8 in. (172.72 cm) (R); Pain 7/10; 22:48 BP 124 / 71; Pulse 71; Resp 16; Pulse Ox 97% on R/A; Pain 3/10; eh3 21:28 Body Mass Index 37.25 (111.13 kg, 172.72 cm) as6 ED Course: 12:07 Patient has correct armband on for positive identification. Bed in low position. Call eh3 light in reach. Side rails up X2. 12:07 No provider procedures requiring assistance completed. eh3 21:23 Patient arrived in ED. bp1 21:26 Yeison Park MD is Attending Physician. rn 21:33 Triage completed. as6 21:34 Arm band placed on. as6 21:46 Ruth Caban, JACQUES is Primary Nurse. eh3 21:51 SARS-COV-2 RT PCR (Document "Date of Onset" if Symptomatic) Sent. eh3 21:51 Flu Sent. eh3 22:08 Inserted saline lock: 20 gauge in right antecubital area, using aseptic technique. eh3 Blood collected. 22:33 Abdomen In Process Unspecified. EDMS 22:48 Urine Microscopic Only Sent. eh3 02/23 00:01 IV discontinued, intact, bleeding controlled, No redness/swelling at site. Pressure ld1 dressing applied. Administered Medications: 02/22 22:07 Drug: Zofran (Ondansetron) 4 mg Route: IVP; Site: right antecubital; eh3 22:48 Follow up: Response: Nausea is decreased eh3 22:07 Drug: Tylenol 650 mg Route: PO; eh3 22:48 Follow up: Response: Pain is decreased eh3 Medication: 12:07 VIS not applicable for this client. eh3 Outcome: 23:43 Discharge ordered by MD. rn 23:52 Discharged to home ambulatory. ld1 23:52 Condition: stable 23:52 Discharge instructions given to patient, Instructed on discharge instructions, follow up and referral plans. medication usage, Demonstrated understanding of instructions, follow-up care, medications, Prescriptions given X 1. 02/23 00:01 Patient left the ED. ld1 Signatures: Dispatcher [employer] EDMS Yeison Park MD MD rn Paniauga, Brittany bp1 Dibbern, Lauren, RN RN ld1 Vazquez Robles RN RN as6 Ruth Caban RN RN eh3
--- NOTE | 2022-02-22 23:44 | EDPHYS ---
Physician Documentation [facility] Name: Marie Carty Age: 51 yrs Sex: Male : 1970 Arrival Date: 02/22/2022 Time: 21:23 Bed 12 Private MD: ED Physician Yeison Park HPI: 02/22 21:35 This 51 yrs old Black Male presents to ER via Ambulatory with complaints of General rn Weakness, Chills. 21:35 The patient reports fever, not measured (subjective). Onset: The symptoms/episode rn began/occurred yesterday. Modifying factors: there are no obvious modifying factors. Associated signs and symptoms: Pertinent positives: abdominal pain, nausea, vomiting, Pertinent negatives: altered mental status, cough, diarrhea, headache, hemoptysis, skin rash, shortness of breath, sore throat, swelling. Severity of symptoms: At their worst the symptoms were mild in the emergency department the symptoms are unchanged. The patient has not experienced similar symptoms in the past. The patient has not recently seen a physician. Historical: - Allergies: 21:33 Iodine; as6 - Home Meds: 21:33 lisinopril 10 mg oral tab 1 tab once daily [Active]; metformin 750 mg oral Tb24 1 tab as6 once daily [Active]; - PMHx: 21:33 Anxiety; Chronic pain; Diabetes - NIDDM; Hypertension; as6 - PSHx: 21:33 back; as6 - Immunization history:: Client reports receiving the 2nd dose of the Covid vaccine, moderna. - Social history:: Smoking status: Patient reports the use of cigarette tobacco products, smokes one pack cigarettes per day. - Family history:: not pertinent. - Hospitalizations: : No recent hospitalization is reported. ROS: 21:35 Constitutional: + fever and chills Eyes: Negative for injury, pain, redness, and fitter and turner, ENT: Negative for injury, pain, and discharge, Neck: Negative for injury, pain, and swelling, Cardiovascular: Negative for chest pain, palpitations, and edema, Respiratory: Negative for shortness of breath, cough, wheezing, and pleuritic chest pain, Abdomen/GI: + abd pain with nausea and vomiting Back: Negative for injury and pain, MS/Extremity: Negative for injury and deformity, Skin: Negative for injury, rash, and discoloration, Neuro: Negative for headache, numbness, tingling, and seizure. Exam: 21:35 Constitutional: This is a well developed, well nourished patient who is awake, alert, rn and in no acute distress. Head/Face: Normocephalic, atraumatic. Eyes: Pupils equal round and reactive to light, extra-ocular motions intact. Lids and lashes normal. Conjunctiva and sclera are non-icteric and not injected. Cornea within normal limits. Periorbital areas with no swelling, redness, or edema. ENT: Poor dentition but no obvious dental abscess or swelling Neck: Trachea midline, no thyromegaly or masses palpated, and no cervical lymphadenopathy. Supple, full range of motion without nuchal rigidity, or vertebral point tenderness. No Meningismus. Cardiovascular: Regular rate and rhythm. No pulse deficits. Respiratory: No increased work of breathing, no retractions or nasal flaring. Abdomen/GI: soft, mild epigastric tenderness, no distension or guarding, no peritoneal signs. Skin: Warm, dry MS/ Extremity: Pulses equal, no cyanosis. Neuro: Awake and alert, GCS 15 Vital Signs: 21:28 BP 132 / 78; Pulse 87; Resp 18 S; Temp 99.6(O); Pulse Ox 96% on R/A; Weight 111.13 kg as6 (R); Height 5 ft. 8 in. (172.72 cm) (R); Pain 7/10; 22:48 BP 124 / 71; Pulse 71; Resp 16; Pulse Ox 97% on R/A; Pain 3/10; eh3 21:28 Body Mass Index 37.25 (111.13 kg, 172.72 cm) as6 MDM: 21:26 Patient medically screened. rn 23:40 Differential diagnosis: viral Infection, bacterial infection, URI, UTI, rn gastroenteritis. Data reviewed: vital signs, nurses notes, lab test result(s), radiologic studies, CT scan, and as a result, I will discharge patient. Counseling: I had a detailed discussion with the patient and/or guardian regarding: the historical points, exam findings, and any diagnostic results supporting the discharge/admit diagnosis, lab results, radiology results, the need for outpatient follow up, to return to the emergency department if symptoms worsen or persist or if there are any questions or concerns that arise at home. Response to treatment: the patient's symptoms have markedly improved after treatment, and as a result, I will discharge patient. Special discussion: I discussed with the patient/guardian in detail that at this point there is no indication for admission to the hospital. It is understood, however, that if the symptoms persist or worsen the patient needs to return immediately for re-evaluation. ED course: No acute finding in CT abdomen, neg COVID, neg flu, stable vitals, most likely viral syndrome. . 02/22 21:34 Order name: CBC with Diff; Complete Time: 22:47 rn 02/22 21:34 Order name: CMP; Complete Time: 22:47 rn 02/22 21:34 Order name: Lipase; Complete Time: 22:47 rn 02/22 21:34 Order name: Urine Microscopic Only; Complete Time: 23:38 rn 02/22 21:34 Order name: Flu; Complete Time: 22:47 rn 02/22 21:34 Order name: SARS-COV-2 RT PCR (Document "Date of Onset" if Symptomatic); Complete Time: rn 22:47 02/22 21:34 Order name: IV Saline Lock; Complete Time: 22:07 rn 02/22 21:34 Order name: Labs collected and sent; Complete Time: 22:07 rn 02/22 21:34 Order name: Urine Dipstick-Ancillary (obtain specimen); Complete Time: 22:48 rn 02/22 21:41 Order name: Abdomen ; Complete Time: 22:47 EDMS 02/22 22:46 Order name: Urine Dipstick-Ancillary; Complete Time: 22:47 EDMS Administered Medications: 22:07 Drug: Zofran (Ondansetron) 4 mg Route: IVP; Site: right antecubital; eh3 22:48 Follow up: Response: Nausea is decreased eh3 22:07 Drug: Tylenol 650 mg Route: PO; eh3 22:48 Follow up: Response: Pain is decreased eh3 Disposition Summary: 02/22/22 23:43 Discharge Ordered Location: Home rn Problem: new rn Symptoms: have improved rn Condition: Stable rn Diagnosis - Vomiting, unspecified rn - Fever, unspecified rn Followup: rn - With: Private Physician - When: As needed - Reason: Recheck today's complaints, Re-evaluation by your physician Discharge Instructions: - Discharge Summary Sheet rn - Fever, Adult rn - Nausea and Vomiting, Adult rn Forms: - Medication Reconciliation Form rn - Thank You Letter rn - Antibiotic government clerk - Prescription Opioid Use rn Prescriptions: - ondansetron 4 mg Oral tablet,disintegrating - take 1 tablet by ORAL route every 8 hours As needed; 15 tablet; Refills: 0, rn Product Selection Permitted Signatures: Dispatcher [employer] EDMS Yeison Park MD MD rn Slawson, Ashby RN RN as6 Ruth Caban RN RN eh3 Corrections: (The following items were deleted from the chart) 21:41 21:34 Abdomen Pelvis W Con+CT.RAD.BRZ ordered. EDMS EDMS
[2022-02-23 02:34] VITALS: TEMP 99.6
[2022-02-23 02:42] VITALS: BP 124/71; O2SAT 97
== END 2022-02-23 00:01 | disposition home or self-care (01) ==
LOC: ER 21:21
DX: R50.9 Fever, unspecified (principal); R11.10 Vomiting, unspecified; F17.210 Nicotine dependence, cigarettes, uncomplicated; E11.9 Type 2 diabetes mellitus without complications; I10 Essential (primary) hypertension
CPT/HCPCS: 85025; 36415; 83690; 80053; 87804 ×2; 74176; 96374; 99284; U0003; J2405; 81003; 81015

== ENCOUNTER 2022-09-04 21:46 | Emergency (ER) | payer OTHER ==
--- NOTE | 2022-09-04 22:48 | EDPHYS ---
Physician Documentation [facility] Name: Marie Carty Age: 52 yrs Sex: Male : 1970 Arrival Date: 09/04/2022 Time: 21:58 Bed 14 Private MD: ED Physician Monika Nguyen HPI: 09/04 22:44 This 52 yrs old Black Male presents to ER via Ambulatory with complaints of Knee Pain, sp3 Back Pain, Leg Pain. 22:44 52-year-old male with a history of hypertension, diabetes, chronic arthritis in sp3 bilateral knees presents to the ED for chief complaint bilateral knee pain and pelvis pain. Patient denies any trauma, overuse or any other changes in his lifestyle. Patient feels that it is his arthritis and he just wants some temporary relief so he could "sleep". Patient is seen at the [facility] as his PCP and is regularly seen there. On review of systems, he denies headache, neck pain, chest pain, shortness of breath, upper back pain, trauma, numbness or tingling, or any other symptoms at this time.. Historical: - Allergies: 22:43 Iodine; ll3 - Home Meds: 22:43 lisinopril 10 mg Oral tab 1 tab once daily [Active]; metformin 750 mg Oral Tb24 1 tab ll3 once daily [Active]; Cyclobenzaprine Oral daily [Active]; - PMHx: 22:43 Anxiety; Chronic pain; Diabetes - NIDDM; Hypertension; ll3 - PSHx: 22:43 back; ll3 - Immunization history:: Client reports receiving the 2nd dose of the Covid vaccine. - Social history:: Smoking status: Patient reports the use of cigarette tobacco products, 1 1/2 PPD. ROS: 22:45 Constitutional: Negative for fever, chills, and weight loss, Eyes: Negative for injury, sp3 pain, redness, and discharge, ENT: Negative for injury, pain, and discharge, Neck: Negative for injury, pain, and swelling, Cardiovascular: Negative for chest pain, palpitations, and edema, Respiratory: Negative for shortness of breath, cough, wheezing, and pleuritic chest pain, Abdomen/GI: Negative for abdominal pain, nausea, vomiting, diarrhea, and constipation, Back: Negative for injury and pain, Skin: Negative for injury, rash, and discoloration, Neuro: Negative for headache, weakness, numbness, tingling, and seizure, Psych: Negative for depression, anxiety, suicide ideation, homicidal ideation, and hallucinations, Allergy/Immunology: Negative for hives, rash, and allergies, Endocrine: Negative for neck swelling, polydipsia, polyuria, polyphagia, and marked weight changes, Hematologic/Lymphatic: Negative for swollen nodes, abnormal bleeding, and unusual bruising. 22:45 All other systems are negative. Exam: 22:45 Constitutional: This is a well developed, well nourished patient who is awake, alert, sp3 and in no acute distress. Head/Face: Normocephalic, atraumatic. Neck: Trachea midline, no thyromegaly or masses palpated, and no cervical lymphadenopathy. Supple, full range of motion without nuchal rigidity, or vertebral point tenderness. No Meningismus. Chest/axilla: Normal chest wall appearance and motion. Nontender with no deformity. No lesions are appreciated. Cardiovascular: Regular rate and rhythm with a normal S1 and S2. No gallops, murmurs, or rubs. Normal PMI, no JVD. No pulse deficits. Respiratory: Lungs have equal breath sounds bilaterally, clear to auscultation and percussion. No rales, rhonchi or wheezes noted. No increased work of breathing, no retractions or nasal flaring. Abdomen/GI: Soft, non-tender, with normal bowel sounds. No distension or tympany. No guarding or rebound. No evidence of tenderness throughout. Back: No spinal tenderness. No costovertebral tenderness. Full range of motion. Skin: Warm, dry with normal turgor. Normal color with no rashes, no lesions, and no evidence of cellulitis. Neuro: Awake and alert, GCS 15, oriented to person, place, time, and situation. Cranial nerves II-XII grossly intact. Motor strength 5/5 in all extremities. Sensory grossly intact. Cerebellar exam normal. Normal gait. Psych: Awake, alert, with orientation to person, place and time. Behavior, mood, and affect are within normal limits. 22:45 Musculoskeletal/extremity: Normal exam with full range of motion however there is some pain on that range of motion in bilateral knees. No swelling or signs of DVT. Distal peripheral vascular exam is normal with mildly decreased pulses.. Vital Signs: 22:40 BP 125 / 83; Pulse 79; Resp 18; Temp 98.2(O); Pulse Ox 99% on R/A; Weight 109.77 kg ll3 (R); Height 5 ft. 8 in. ; Pain 7/10; 22:40 Body Mass Index 36.80 (109.77 kg, 172.72 cm) ll3 22:40 Pain Scale: Adult ll3 MDM: 22:40 Patient medically screened. sp3 22:45 Data reviewed: vital signs, nurses notes. ED course: 52-year-old male with joint pains sp3 in bilateral lower extremities extending into his hips. I agree with patient and that this is likely osteoarthritis with no evidence of DVT, aortic vascular disease, AAA, soft tissue injury, acute fracture, cellulitis, arterial block, or any other findings at this time. We will administer ketorolac 30 mg IM and discharge patient home on diclofenac with follow-up with the [facility].. Administered Medications: 22:57 Drug: Ketorolac IM 30 mg Route: IM; Site: right deltoid; ll3 23:11 Follow up: Response: Medication administered at discharge. ll3 Disposition Summary: 09/04/22 22:47 Discharge Ordered Location: Home sp3 Condition: Stable sp3 Diagnosis - Osteoarthritis of knee, unspecified sp3 Followup: sp3 - With: Private Physician - When: Upon discharge from the Emergency Department - Reason: Continuance of care Discharge Instructions: - Discharge Summary Sheet sp3 - Osteoarthritis sp3 Forms: - Medication Reconciliation Form sp3 - Thank You Letter sp3 - Antibiotic Education sp3 - Prescription Opioid Use sp3 Prescriptions: - Diclofenac Sodium 75 mg Oral Tablet Sustained Release - take 1 tablet by ORAL route 2 times per day; 30 tablet; Refills: 0, Product sp3 Selection Permitted Signatures: Monika Nguyen MD MD sp3 Paul Motta RN RN ll3
--- NOTE | 2022-09-04 22:48 | ER ---
Nurse's Notes [facility] Name: Marie Carty Age: 52 yrs Sex: Male : 1970 Arrival Date: 09/04/2022 Time: 21:58 Bed 14 Private MD: Diagnosis: Osteoarthritis of knee, unspecified Presentation: 09/04 22:40 Chief complaint: Patient states: C/o back and knee pain that radiates to ankles ll3 bilaterally, states pain started 2-3 days ago. Coronavirus screen: Vaccine status: Patient reports receiving the 2nd dose of the covid vaccine. At this time, the client does not indicate any symptoms associated with coronavirus-19. Ebola Screen: No symptoms or risks identified at this time. Initial Sepsis Screen: Does the patient meet any 2 criteria? No. Patient's initial sepsis screen is negative. Does the patient have a suspected source of infection? No. Patient's initial sepsis screen is negative. Risk Assessment: Do you want to hurt yourself or someone else? Patient reports no desire to harm self or others. Onset of symptoms was September 01, 2022. Care prior to arrival: Medication(s) given: Advil PM 2029. 22:40 Method Of Arrival: Ambulatory ll3 22:40 Acuity: MARYAM 3 ll3 Triage Assessment: 22:43 General: Appears uncomfortable, Behavior is calm, cooperative. Pain: Complains of pain ll3 in back, right knee and left knee Pain radiates to right ankle and left medial ankle Pain currently is 7 out of 10 on a pain scale. Quality of pain is described as throbbing, Pain began 2-3 days ago. Is continuous. Musculoskeletal: Circulation, motion, and sensation intact. Reports pain in back, right leg and left leg. Historical: - Allergies: 22:43 Iodine; ll3 - Home Meds: 22:43 lisinopril 10 mg Oral tab 1 tab once daily [Active]; metformin 750 mg Oral Tb24 1 tab ll3 once daily [Active]; Cyclobenzaprine Oral daily [Active]; - PMHx: 22:43 Anxiety; Chronic pain; Diabetes - NIDDM; Hypertension; ll3 - PSHx: 22:43 back; ll3 - Immunization history:: Client reports receiving the 2nd dose of the Covid vaccine. - Social history:: Smoking status: Patient reports the use of cigarette tobacco products, 1 1/2 PPD. Screenin:09 [facility] ED Fall Risk Assessment (Adult) History of falling in the last 3 months, ll3 including since admission No falls in past 3 months (0 pts) Confusion or Disorientation No (0 pts) Intoxicated or Sedated No (0 pts) Impaired Gait No (0 pts) Mobility Assist Device Used Yes (1 pt) Altered Elimination No (0 pt) Score/Fall Risk Level 0 - 2 = Low Risk Oriented to surroundings, Maintained a safe environment, Educated pt \T\ family on fall prevention, incl call for assistance when getting out of bed. Abuse screen: Denies threats or abuse. Denies injuries from another. Nutritional screening: No deficits noted. Tuberculosis screening: No symptoms or risk factors identified. Assessment: 22:43 General: See triage assessment. ll3 22:43 Neuro: Level of Consciousness is awake, alert, obeys commands, Oriented to person, ll3 place, time, situation. Vital Signs: 22:40 BP 125 / 83; Pulse 79; Resp 18; Temp 98.2(O); Pulse Ox 99% on R/A; Weight 109.77 kg ll3 (R); Height 5 ft. 8 in. ; Pain 7/10; 22:40 Body Mass Index 36.80 (109.77 kg, 172.72 cm) ll3 22:40 Pain Scale: Adult ll3 ED Course: 21:58 Patient arrived in ED. ja2 22:13 Monika Nguyen MD is Attending Physician. sp3 22:43 Triage completed. ll3 22:43 Arm band placed on Patient placed in an exam room, on a stretcher, on pulse oximetry. ll3 23:10 Patient has correct armband on for positive identification. Bed in low position. Call ll3 light in reach. Side rails up X 1. 23:10 No provider procedures requiring assistance completed. Patient did not have IV access ll3 during this emergency room visit. Administered Medications: 22:57 Drug: Ketorolac IM 30 mg Route: IM; Site: right deltoid; ll3 23:11 Follow up: Response: Medication administered at discharge. ll3 Medication: 23:10 VIS not applicable for this client. ll3 Outcome: 22:47 Discharge ordered by . sp3 23:10 Discharged to home ambulatory. ll3 23:10 Condition: stable 23:10 Discharge instructions given to patient, Instructed on discharge instructions, follow up and referral plans. medication usage, Demonstrated understanding of instructions, follow-up care, medications, Prescriptions given X 1. 23:11 Patient left the ED. ll3 Signatures: Monika Nguyen MD MD sp3 Chantel Kelly Lynsea RN RN ll3 Corrections: (The following items were deleted from the chart) 23:11 23:11 General: See triage assessment. 3 ll3
[2022-09-04] MEDS ORDERED: KETOROLAC 30 MG/ML INJ ONE (22:57)
[2022-09-04 23:17] VITALS: BP 125/83; TEMP 98.2; O2SAT 99
== END 2022-09-04 23:11 | disposition home or self-care (01) ==
LOC: ER 21:46
DX: M17.0 Bilateral primary osteoarthritis of knee (principal); F17.210 Nicotine dependence, cigarettes, uncomplicated; Z91.048 Other nonmedicinal substance allergy status

== ENCOUNTER 2022-10-24 15:51 | Emergency (ER) | payer OTHER ==
--- NOTE | 2022-10-24 17:41 | RAD REPORT ---
EXAM DESCRIPTION: RAD - Chest Pa And Lat (2 Views) - 10/24/2022 5:30 pm CLINICAL HISTORY: COUGH Chest pain. COMPARISON: <Comparisons> FINDINGS: The lungs are clear. The heart is normal in size. No displaced fractures. IMPRESSION: No acute or concerning finding suspected.
--- NOTE | 2022-10-24 17:48 | ER ---
Nurse's Notes [facility] Name: Marie Carty Age: 52 yrs Sex: Male : 1970 Arrival Date: 10/24/2022 Time: 15:51 Bed 14 Private MD: Diagnosis: Acute upper respiratory infection, unspecified Presentation: 10/24 16:07 Chief complaint: Patient states: Generalized weakness, fatigue, "chest congestion", nj1 cough for 3 days. States phlegm is green when able to cough it up. 16:07 Method Of Arrival: Ambulatory [facility] 16:07 Coronavirus screen: Vaccine status: Patient reports receiving the 2nd dose of the covid nj1 vaccine. Ebola Screen: Patient denies travel to an Ebola-affected area in the 21 days before illness onset. Initial Sepsis Screen: Does the patient meet any 2 criteria? No. Patient's initial sepsis screen is negative. Does the patient have a suspected source of infection? No. Patient's initial sepsis screen is negative. Risk Assessment: Do you want to hurt yourself or someone else? Patient reports no desire to harm self or others. Onset of symptoms was October 22, 2022. 16:07 Acuity: MARYAM 3 nj1 Historical: - Allergies: 16:31 Iodine; nj1 - PMHx: 16:31 Anxiety; Chronic pain; Diabetes - NIDDM; Hypertension; nj1 - PSHx: 16:31 back; nj1 - Immunization history:: Client reports receiving the 2nd dose of the Covid vaccine. - Social history:: Smoking status: Patient reports the use of cigarette tobacco products, smokes one pack cigarettes per day. Screenin:14 [facility] ED Fall Risk Assessment (Adult) History of falling in the last 3 months, mb9 including since admission No falls in past 3 months (0 pts) Confusion or Disorientation No (0 pts) Intoxicated or Sedated No (0 pts) Impaired Gait No (0 pts) Mobility Assist Device Used No (0 pt) Altered Elimination No (0 pt) Score/Fall Risk Level 0 - 2 = Low Risk Oriented to surroundings, Maintained a safe environment, Educated pt \\T\\ family on fall prevention, incl call for assistance when getting out of bed. Abuse screen: Denies threats or abuse. Nutritional screening: No deficits noted. Tuberculosis screening: No symptoms or risk factors identified. Assessment: 17:15 General: Appears in no apparent distress. Behavior is calm, cooperative. Pain: mb9 Complains of pain in entire body Quality of pain is described as aching. Neuro: Level of Consciousness is awake, alert, obeys commands, Oriented to person, place, time, situation, Appropriate for age. Cardiovascular: Patient's skin is warm and dry. Respiratory: Reports cough that is productive, Airway is patent Respiratory effort is even, unlabored, Breath sounds are clear bilaterally. EENT: Throat is reddened. Derm: Skin is pink, warm \\T\\ dry. Musculoskeletal: Range of motion: intact in all extremities. Vital Signs: 16:07 BP 138 / 95; Pulse 92; Resp 19; Temp 99.1(O); Pulse Ox 98% on R/A; Weight 109.77 kg; nj1 Height 5 ft. 8 in. ; 17:15 BP 110 / 66; Pulse 84; Resp 18; Pulse Ox 96% on R/A; mb9 16:07 Body Mass Index 36.80 (109.77 kg, 172.72 cm) [facility] ED Course: 15:52 Patient arrived in ED. rg4 16:03 Maxwell Doan PA is PHCP. cp 16:03 Greg Willis DO is Attending Physician. cp 16:04 Greg Willis DO is Attending Physician. cp 16:31 Triage completed. [facility] 16:31 Arm band placed on. [facility] 17:14 Benita Esquivel, RN is Primary Nurse. mb9 17:14 Placed in gown. Bed in low position. Call light in reach. Side rails up X 1. Client mb9 placed on continuous cardiac and pulse oximetry monitoring. NIBP monitoring applied. 17:14 COVID-19 SARS RT PCR Sent. mb9 17:15 No provider procedures requiring assistance completed. Patient did not have IV access mb9 during this emergency room visit. 17:30 XRAY Chest Pa And Lat (2 Views) In Process Unspecified. EDMS Administered Medications: 17:53 Drug: Tessalon Perle PO 200 mg Route: PO; mb9 17:58 Follow up: Response: No adverse reaction mb9 Medication: 17:15 VIS not applicable for this client. mb9 Outcome: 17:47 Discharge ordered by . cp 17:58 Discharged to home ambulatory. mb9 17:58 Condition: stable 17:58 Discharge instructions given to patient, Instructed on discharge instructions, follow up and referral plans. Demonstrated understanding of instructions, follow-up care, medications, Prescriptions given X 1. 17:58 Patient left the ED. mb9 Signatures: Dispatcher [employer] EDMS Maxwell Doan PA PA cp Garcia, Rubi rg4 Benita Esquivel RN RN mb9 Lainey Hutton RN RN nj1
--- NOTE | 2022-10-24 17:48 | EDPHYS ---
Physician Documentation [facility] Name: Marie Carty Age: 52 yrs Sex: Male : 1970 Arrival Date: 10/24/2022 Time: 15:51 Bed 14 Private MD: ED Physician Greg Willis HPI: 10/24 16:30 This 52 yrs old Black Male presents to ER via Ambulatory with complaints of Chest cp Congestion, Weakness. 16:30 The patient or guardian reports cough, with productive sputum, that is green, chest cp congestion. Onset: The symptoms/episode began/occurred 3 day(s) ago. 16:30 Associated signs and symptoms: Pertinent positives: sore throat, general weakness, cp Pertinent negatives: chest pain, diarrhea, fever, vomiting. Severity of symptoms: in the emergency department the symptoms are unchanged despite home interventions. Historical: - Allergies: 16:31 Iodine; nj1 - PMHx: 16:31 Anxiety; Chronic pain; Diabetes - NIDDM; Hypertension; nj1 - PSHx: 16:31 back; nj1 - Immunization history:: Client reports receiving the 2nd dose of the Covid vaccine. - Social history:: Smoking status: Patient reports the use of cigarette tobacco products, smokes one pack cigarettes per day. ROS: 16:35 Constitutional: Positive for body aches, Negative for chills, fever, poor PO intake. cp 16:35 Eyes: Negative for injury, pain, redness, and discharge. cp 16:35 ENT: Positive for sore throat, Negative for drainage from ear(s), ear pain, difficulty swallowing, difficulty handling secretions. 16:35 Cardiovascular: Negative for chest pain, edema, palpitations. 16:35 Respiratory: Positive for cough, with green sputum, Negative for shortness of breath, wheezing. 16:35 Abdomen/GI: Negative for abdominal pain, nausea, vomiting, and diarrhea. 16:35 Neuro: Positive for weakness, Negative for altered mental status, dizziness, headache. Exam: 16:40 Constitutional: The patient appears in no acute distress, alert, awake, cp non-diaphoretic, non-toxic, well developed, well nourished. 16:40 Head/Face: Normocephalic, atraumatic. cp 16:40 Eyes: Periorbital structures: appear normal, Conjunctiva: normal, no exudate, no injection, Sclera: no appreciated abnormality, Lids and lashes: appear normal, bilaterally. 16:40 ENT: External ear(s): are unremarkable, Ear canal(s): are normal, clear, TM's: dullness, bilaterally, Nose: is normal, Mouth: Lips: moist, Oral mucosa: pink and intact, moist, Posterior pharynx: Airway: no evidence of obstruction, patent, Tonsils: no enlargement, no erythema, no exudate, erythema, that is mild, exudate, is not appreciated. 16:40 Neck: ROM/movement: is normal, is supple, without pain, no range of motions limitations, no meningismus, Lymph nodes: no appreciated lymphadenopathy. 16:40 Chest/axilla: Inspection: normal. 16:40 Cardiovascular: Rate: normal, Rhythm: regular. 16:40 Respiratory: the patient does not display signs of respiratory distress, Respirations: normal, no use of accessory muscles, no retractions, labored breathing, is not present, Breath sounds: decreased breath sounds, are not appreciated, stridor, is not appreciated, + upper airway congestion. wheezing: is not appreciated. 16:40 Abdomen/GI: Exam negative for discomfort, distension, guarding, Inspection: abdomen appears normal. 16:40 Neuro: Orientation: to person, place \T\ time. Mentation: is normal, Motor: moves all fours, strength is normal. Vital Signs: 16:07 BP 138 / 95; Pulse 92; Resp 19; Temp 99.1(O); Pulse Ox 98% on R/A; Weight 109.77 kg; nj1 Height 5 ft. 8 in. ; 17:15 BP 110 / 66; Pulse 84; Resp 18; Pulse Ox 96% on R/A; mb9 16:07 Body Mass Index 36.80 (109.77 kg, 172.72 cm) nj1 MDM: 16:15 Patient medically screened. cp 17:47 Data reviewed: vital signs, nurses notes, lab test result(s), radiologic studies, plain cp films. 17:47 Differential diagnosis: bronchitis, flu, URI, pneumonia, COVID-19, strep throat. I cp considered the following discharge prescriptions or medication management in the emergency department Medications were administered in the Emergency Department. See MAR. Care significantly affected by the following chronic conditions: Diabetes, Hypertension. Counseling: I had a detailed discussion with the patient and/or guardian regarding: the historical points, exam findings, and any diagnostic results supporting the discharge/admit diagnosis, lab results, radiology results, to return to the emergency department if symptoms worsen or persist or if there are any questions or concerns that arise at home. 10/24 16:25 Order name: Strep; Complete Time: 17:42 cp 10/24 16:25 Order name: COVID-19 SARS RT PCR; Complete Time: 17:42 cp 10/24 16:25 Order name: Influenza Screen (a \T\ B); Complete Time: 17:42 cp 10/24 17:10 Order name: Throat Culture EDMS 10/24 16:25 Order name: XRAY Chest Pa And Lat (2 Views); Complete Time: 17:42 cp 10/24 17:42 Interpretation: Report reviewed. cp Administered Medications: 17:53 Drug: Tessalon Perle PO 200 mg Route: PO; mb9 17:58 Follow up: Response: No adverse reaction mb9 Disposition: 17:29 Co-signature as Attending Physician, Greg Willis DO I was immediately available on-site ms3 in the Emergency Department for consultation in the care of the patient. Disposition Summary: 10/24/22 17:47 Discharge Ordered Location: Home cp Problem: new cp Symptoms: have improved cp Condition: Stable cp Diagnosis - Acute upper respiratory infection, unspecified cp Followup: cp - With: Private Physician - When: 1 - 2 days - Reason: Worsening of condition Discharge Instructions: - Discharge Summary Sheet cp - Viral Respiratory Infection cp - Cool Mist Vaporizer cp - Form - Excuse from Work, School, or Physical Activity cp Forms: - Medication Reconciliation Form cp - Thank You Letter cp - Antibiotic Education cp - Prescription Opioid Use cp Prescriptions: - Bromfed DM 2-30-10 mg/5 mL Oral syrup - administer 10 milliliter by ORAL route every 6 hours; 180 milliliter; Refills: cp 0, Product Selection Permitted Signatures: Dispatcher [employer] EDMaxwell Palma PA PA cp Sims, Marcus, DO DO ms3 Benita Esquivel RN RN mb9 Lainey Hutton RN RN nj1
[2022-10-24] MEDS ORDERED: BENZONATATE 100 MG CAP PO ONE (17:59)
[2022-10-24 18:27] VITALS: TEMP 99.1
[2022-10-24 18:29] VITALS: BP 110/66; O2SAT 96
== END 2022-10-24 17:58 | disposition home or self-care (01) ==
LOC: ER 15:51
DX: J06.9 Acute upper respiratory infection, unspecified (principal); R53.1 Weakness; F17.210 Nicotine dependence, cigarettes, uncomplicated; Z20.822 Contact with and (suspected) exposure to COVID-19; Z91.048 Other nonmedicinal substance allergy status; I10 Essential (primary) hypertension
CPT/HCPCS: 87070; 87081; 87804 ×2; 71046; U0003

== ENCOUNTER 2023-05-11 05:54 | Emergency (ER) | payer OTHER ==
[2023-05-11 06:25] LABS: Absolute Lymphocytes (CBC) 2.6 K/uL (0.7-4.9); Hematocrit 37.6 % (39.6-49.0); Lymphocytes % 40.8 % (15.3-44.8); MCV 93.8 fL (80-100); MPV 8.4 fL (7.6-11.3); Platelets 190 thou/uL (152-406); RBC Red Blood Cell Count 4.01 M/uL (4.33-5.43)
[2023-05-11 07:09] LABS: Albumin 3.4 g/dL (3.4-5.0); Bilirubin Direct 0.1 mg/dL (0-0.2); Bilirubin Indirect, Calculated 0.2 mg/dL (0.2-0.8); Bilirubin Total 0.3 mg/dL (0.2-1.0); Potassium 4.1 mEq/L (3.5-5.1); Protein, Total 7.3 g/dL (6.4-8.2); Troponin High Sensitivity 5.3 pg/mL (<58.9)
[2023-05-11] MEDS ORDERED: KETOROLAC 30 MG/ML INJ ONE (07:37)
--- NOTE | 2023-05-11 08:06 | RAD REPORT ---
EXAM DESCRIPTION: RAD - Chest Single View - 05/11/2023 7:16 am CLINICAL HISTORY: CHEST PAIN Chest pain. COMPARISON: Chest Pa And Lat (2 Views) dated 10/24/2022; Chest Single View dated 05/06/2018; Chest Si ngle View dated 04/06/2018; Chest Single View dated 11/15/2017 FINDINGS: Portable technique limits examination quality. The lungs are grossly clear. The heart is normal in size. No displaced fractures. IMPRESSION: No acute intrathoracic process suspected.
[2023-05-11] MEDS ORDERED: MORPHINE 4 MG/ML SYR ONE (08:16)
--- NOTE | 2023-05-11 08:33 | EDPHYS ---
Physician Documentation [facility] Name: Marie Carty Age: 53 yrs Sex: Male : 1970 Arrival Date: 05/11/2023 Time: 05:54 Bed 13 Private MD: ED Physician Monika Nguyen HPI: 05/11 06:31 This 53 yrs old Black Male presents to ER via Ambulatory with complaints of Chest Pain. rn 06:31 The patient or guardian reports chest pain that is located primarily in the anterior rn chest wall, right. Onset: 3 day(s) ago. The pain radiates to the right shoulder, the right scapula. Associated signs and symptoms: Pertinent positives: cough, Pertinent negatives: headache, lower extremity swelling, near syncope, palpitations, shortness of breath, syncope, vomiting. The chest pain is described as aching. Duration: The patient or guardian reports multiple episodes, that are intermittent. Modifying factors: The symptoms are alleviated by remaining still, the symptoms are aggravated by cough, movement, palpation of area. Severity of pain: At its worst the pain was moderate in the emergency department the pain has improved. The patient has not experienced similar symptoms in the past. Patient reports right-sided chest pain for the last 3 to 4 days. Denies injury or trauma. Reports radiates to right shoulder and right neck as well as right scapula. Pain goes away when not moving. Pain worsened with movement or using right arm or palpation of area. No shortness of breath. Reports mild cough. No fever. No runny nose or sore throat. No abdominal pain or vomiting. No history of DVT or PE.. Historical: - Allergies: 06:10 Iodine; ha1 - Home Meds: 06:10 lisinopril 10 mg Oral tab 1 tab once daily [Active]; metformin 750 mg Oral Tb24 1 tab ha1 once daily [Active]; Cyclobenzaprine Oral daily [Active]; - PMHx: 06:10 Anxiety; Chronic pain; Diabetes - NIDDM; Hypertension; ha1 - PSHx: 06:10 back; ha1 - Immunization history:: Adult Immunizations unknown. - Social history:: Smoking status: Patient reports the use of cigarette tobacco products, smokes one-half pack cigarettes per day. - Family history:: not pertinent. - Hospitalizations: : No recent hospitalization is reported. ROS: 06:31 Constitutional: Negative for fever, chills, and weight loss, Eyes: Negative for injury, rn pain, redness, and discharge, Neck: Negative for injury, pain, and swelling, Cardiovascular: Positive for right-sided chest pain Respiratory: Negative for shortness of breath Abdomen/GI: Negative for abdominal pain, nausea, vomiting, diarrhea, and constipation, Back: Negative for injury and pain, MS/Extremity: Negative for injury and deformity, Skin: Negative for injury, rash, and discoloration, Neuro: Negative for headache, weakness, numbness, tingling, and seizure, Exam: 06:31 Constitutional: This is a well developed, well nourished patient who is awake, alert, rn and in no acute distress. Head/Face: Normocephalic, atraumatic. Chest/axilla: Normal chest wall appearance and motion. Reproducible right-sided chest wall tenderness with palpation. No lesions or rash Cardiovascular: Regular rate and rhythm. No pulse deficits. Respiratory: Clear bilateral breath sounds. No wheezing. No increased work of breathing, no retractions or nasal flaring. Abdomen/GI: Soft, non-tender, negative Gomez Skin: Warm, dry MS/ Extremity: Pulses equal, no cyanosis. Neurovascular intact. Full, normal range of motion. Equal circumference. Neuro: Awake and alert, GCS 15 Vital Signs: 06:06 BP 133 / 92; Pulse 84; Resp 19; Temp 98.1(O); Pulse Ox 97% on R/A; Weight 112.49 kg; ha1 Height 5 ft. 8 in. ; 06:30 BP 113 / 69; Pulse 86; Resp 17 S; Pulse Ox 98% on R/A; ha1 08:09 BP 122 / 77; Pulse 81; Resp 18; Pulse Ox 98% ; ko1 08:28 BP 104 / 75; Pulse 75; Resp 16; Pulse Ox 98% ; ko1 06:06 Body Mass Index 37.71 (112.49 kg, 172.72 cm) [facility] MDM: 06:01 Patient medically screened. rn 07:59 ED course: Patient signed out to me by night physician at 7 AM for likely sp3 musculoskeletal chest pain. Plan is to obtain 2 sets of negative troponins and have patient follow-up with PCP. Pain medication as needed for musculoskeletal relief.. 08:32 Data reviewed: vital signs, nurses notes, lab test result(s), radiologic studies. ED sp3 course: Second troponin is negative and pain is now improved. We will safely discharge patient home at this time with follow-up to cardiology.. 05/11 06:14 Order name: Basic Metabolic Panel; Complete Time: 07:13 rn 05/11 06:14 Order name: CBC with Diff; Complete Time: 07:03 rn 05/11 06:14 Order name: LFT's; Complete Time: 07:13 rn 05/11 06:14 Order name: NT PRO-BNP; Complete Time: 07:13 rn 05/11 06:14 Order name: Troponin HS; Complete Time: 07:13 rn 05/11 07:14 Order name: Troponin High Sensitivity: 2 hours after last draw; Complete Time: 08:31 sp3 05/11 06:14 Order name: XRAY Chest (1 view); Complete Time: 08:12 rn 05/11 06:14 Order name: EKG; Complete Time: 06:15 rn 05/11 06:06 Order name: EKG - Nurse/Tech; Complete Time: 06:06 ha1 05/11 06:14 Order name: Cardiac monitoring; Complete Time: 06:21 rn 05/11 06:14 Order name: IV Saline Lock; Complete Time: 06:21 rn 05/11 06:14 Order name: Labs collected and sent; Complete Time: 06:21 rn 05/11 06:14 Order name: O2 Per Protocol; Complete Time: 06:21 rn 05/11 06:14 Order name: O2 Sat Monitoring; Complete Time: 06:21 rn Administered Medications: 07:30 Drug: Ketorolac IVP 30 mg IVP once Route: IVP; Site: right antecubital; ko1 08:03 Drug: morphine IVP or IV 4 mg IVP once over 4 mins Route: IVP; Infused Over: 4 mins; ko1 Site: right antecubital; Disposition Summary: 05/11/23 08:32 Discharge Ordered Notes: Location: Home sp3 Condition: Stable sp3 Diagnosis - Chest pain, unspecified sp3 Followup: sp3 - With: Private Physician - When: Upon discharge from the Emergency Department - Reason: Continuance of care Discharge Instructions: - Discharge Summary Sheet sp3 - Nonspecific Chest Pain, Adult sp3 Forms: - Medication Reconciliation Form sp3 - Thank You Letter sp3 - Antibiotic Education sp3 - Prescription Opioid Use sp3 - Patient Portal Instructions sp3 - Leadership Thank You Letter sp3 Signatures: Dispatcher [employer] Yeison Jiménez MD MD rn Patel, Setul, MD MD sp3 Isabell Mcmillan, RN RN ha1 Aracely Mesa RN RN ko1
--- NOTE | 2023-05-11 08:33 | ER ---
Nurse's Notes [facility] Name: Marie Carty Age: 53 yrs Sex: Male : 1970 Arrival Date: 05/11/2023 Time: 05:54 Bed 13 Private MD: Diagnosis: Chest pain, unspecified Presentation: 05/11 06:06 Chief complaint: Patient states: Chest pain on the right side of my chest that has been ha1 going on since Saturday. Today, it woke me up of my sleep. pain gets worse with movement. pain 02/24. Coronavirus screen: Vaccine status: Patient reports receiving the 2nd dose of the covid vaccine. Moderna. Ebola Screen: No symptoms or risks identified at this time. Initial Sepsis Screen: Does the patient meet any 2 criteria? No. Patient's initial sepsis screen is negative. Does the patient have a suspected source of infection? No. Patient's initial sepsis screen is negative. Risk Assessment: Do you want to hurt yourself or someone else? Patient reports no desire to harm self or others. Onset of symptoms was May 11, 2023. 06:06 Method Of Arrival: Ambulatory ha1 06:06 Acuity: MARYAM 3 ha1 Historical: - Allergies: 06:10 Iodine; ha1 - Home Meds: 06:10 lisinopril 10 mg Oral tab 1 tab once daily [Active]; metformin 750 mg Oral Tb24 1 tab ha1 once daily [Active]; Cyclobenzaprine Oral daily [Active]; - PMHx: 06:10 Anxiety; Chronic pain; Diabetes - NIDDM; Hypertension; ha1 - PSHx: 06:10 back; ha1 - Immunization history:: Adult Immunizations unknown. - Social history:: Smoking status: Patient reports the use of cigarette tobacco products, smokes one-half pack cigarettes per day. - Family history:: not pertinent. - Hospitalizations: : No recent hospitalization is reported. Screenin:10 [facility] ED Fall Risk Assessment (Adult) History of falling in the last 3 months, pf1 including since admission No falls in past 3 months (0 pts) Confusion or Disorientation No (0 pts) Intoxicated or Sedated No (0 pts) Impaired Gait No (0 pts) Mobility Assist Device Used No (0 pt) Altered Elimination No (0 pt) Score/Fall Risk Level 0 - 2 = Low Risk Oriented to surroundings, Maintained a safe environment, Educated pt \T\ family on fall prevention, incl call for assistance when getting out of bed, Assessed \T\ reinforced patient's understanding of fall precautions, Provided non-skid footwear, Hourly rounding (assess needs \T\ fall precautionary measures) done, Used ambulatory aids as needed (educated on \T\ assisted with), Used gait belt as appropriate. Abuse screen: Denies threats or abuse. Nutritional screening: No deficits noted. Tuberculosis screening: No symptoms or risk factors identified. Assessment: 06:09 General: Appears in no apparent distress. uncomfortable, well groomed, well developed, pf1 Behavior is calm, cooperative, appropriate for age, quiet. Pain: Complains of pain in right side chest pain that radiates to right shoulder and right neck,onset Saturday. Pain currently is 9 out of 10 on a pain scale. Neuro: No deficits noted. Level of Consciousness is awake, alert, obeys commands, Oriented to person, place, time, situation. Cardiovascular: Reports chest pain, Capillary refill < 3 seconds Patient's skin is warm and dry. Respiratory: No deficits noted. Airway is patent Respiratory effort is even, unlabored, Respiratory pattern is regular, symmetrical. GI: No deficits noted. No signs and/or symptoms were reported involving the gastrointestinal system. : No deficits noted. No signs and/or symptoms were reported regarding the genitourinary system. 06:30 Reassessment: Patient and/or family updated on plan of care and expected duration. Pain ha1 level reassessed. Patient is alert, oriented x 3, equal unlabored respirations, skin warm/dry/pink. 07:15 Pain: Pain radiates to right side of neck Pain began 2-3 days ago. ko1 Vital Signs: 06:06 BP 133 / 92; Pulse 84; Resp 19; Temp 98.1(O); Pulse Ox 97% on R/A; Weight 112.49 kg; ha1 Height 5 ft. 8 in. ; 06:30 BP 113 / 69; Pulse 86; Resp 17 S; Pulse Ox 98% on R/A; ha1 08:09 BP 122 / 77; Pulse 81; Resp 18; Pulse Ox 98% ; ko1 08:28 BP 104 / 75; Pulse 75; Resp 16; Pulse Ox 98% ; ko1 06:06 Body Mass Index 37.71 (112.49 kg, 172.72 cm) ha1 ED Course: 05:58 Patient arrived in ED. gm2 06:01 Yeison Park MD is Attending Physician. rn 06:06 Arm band placed on right wrist. ha1 06:06 EKG completed in triage. Results shown to MD. ha1 06:10 Triage completed. ha1 06:11 Patient has correct armband on for positive identification. Placed in gown. Bed in low pf1 position. Call light in reach. 06:11 Client placed on continuous cardiac and pulse oximetry monitoring. NIBP monitoring pf1 applied. cafeteria monitor on. 06:11 Patient maintains SpO2 saturation greater than 95% on room air. ha1 06:20 Isabell Mcmillan, JACQUES is Primary Nurse. ha1 06:21 Basic Metabolic Panel Sent. ha1 06:21 CBC with Diff Sent. ha1 06:21 LFT's Sent. ha1 06:21 NT PRO-BNP Sent. ha1 06:21 Troponin HS Sent. ha1 06:21 Inserted saline lock: 22 gauge in right antecubital area, using aseptic technique. ha1 Blood collected. 06:57 No provider procedures requiring assistance completed. pf1 07:11 Attending Physician role handed off by Yeison Park MD sp3 07:11 Monika Nguyen MD is Attending Physician. sp3 07:15 Provided Education on: NA. ko1 07:18 XRAY Chest (1 view) In Process Unspecified. EDMS 08:09 Troponin High Sensitivity: 2 hours after last draw Sent. ko1 08:35 IV discontinued, intact, bleeding controlled, No redness/swelling at site. Pressure ko1 dressing applied. Administered Medications: 07:30 Drug: Ketorolac IVP 30 mg IVP once Route: IVP; Site: right antecubital; ko1 08:03 Drug: morphine IVP or IV 4 mg IVP once over 4 mins Route: IVP; Infused Over: 4 mins; ko1 Site: right antecubital; Medication: 06:11 VIS not applicable for this client. ha1 Outcome: 08:32 Discharge ordered by . sp3 08:44 Discharged to home ambulatory, with family, ko1 08:44 Condition: improved 08:44 Discharge instructions given to patient, family, Instructed on discharge instructions, follow up and referral plans. Demonstrated understanding of instructions, follow-up care, 08:45 Patient left the ED. ko1 Signatures: Dispatcher [employer] EDYeison Amador MD MD rn Patel, Setul, MD MD sp3 Isabell Mcmillan RN RN [email or web address] Aracely Mesa RN RN ko1 Susan Sena RN RN [email or web address] Tiffanie Mtz 2
[2023-05-11 08:54] VITALS: TEMP 98.1
[2023-05-11 09:00] VITALS: BP 113/69; O2SAT 98
--- NOTE | 2023-05-13 16:53 | EKG ---
Test Date: 2023-05-11 Test Time: 06:03:53 Steel Tester: AMADO MEASUREMENT RESULTS: Intervals: Rate: 81 [place]: 164 QRSD: 76 QT: 352 QTc: 408 [place]: P: 59 NJ: 164 QRS: 56 T: 68 INTERPRETIVE STATEMENTS: Normal sinus rhythm Normal ECG Compared to ECG 04/19/2021 01:58:02 No significant changes Electronically Signed On 05-13-23 16:51:55 MEASUREMENT PSYCHOLOGIST by Casper Tate
== END 2023-05-11 08:45 | disposition home or self-care (01) ==
LOC: EEVIPCON 05:54 → ER 05:54
DX: R07.89 Other chest pain (principal); I10 Essential (primary) hypertension; F41.9 Anxiety disorder, unspecified; E11.9 Type 2 diabetes mellitus without complications; F17.210 Nicotine dependence, cigarettes, uncomplicated; Z91.048 Other nonmedicinal substance allergy status
CPT/HCPCS: 36415; 71045; 80048; 80076; 83880; 84484; 85025; 93005; 96374; 96375; 99285

== ENCOUNTER → 2023-07-10 | Emergency (ER) | payer OTHER ==
[~2023-07-10] MED LIST: KETOROLAC 30 MG/ML INJ ONE; MORPHINE 4 MG/ML SYR ONE
--- NOTE | 2023-07-10 10:03 | ER ---
Nurse's Notes [facility] Name: Marie Carty Age: 53 yrs Sex: Male : 1970 Arrival Date: 07/10/2023 Time: 08:58 Bed 8 Private MD: Diagnosis: Cervical disc disorder with radiculopathy, unspecified cervical region Presentation: 07/10 09:17 Chief complaint: Patient states: R shoulder pain for 3 days. History of the same. ll1 Coronavirus screen: Client denies travel out of the [place] in the last 14 days. At this time, the client does not indicate any symptoms associated with coronavirus-19. Ebola Screen: Patient denies travel to an Ebola-affected area in the 21 days before illness onset. Initial Sepsis Screen: Does the patient meet any 2 criteria? No. Patient's initial sepsis screen is negative. Does the patient have a suspected source of infection? No. Patient's initial sepsis screen is negative. Risk Assessment: Do you want to hurt yourself or someone else? Patient reports no desire to harm self or others. Onset of symptoms was July 08, 2023. 09:17 Method Of Arrival: Ambulatory 1 09:17 Acuity: MARYAM 4 ll1 Triage Assessment: 09:20 General: Appears uncomfortable, Behavior is calm, cooperative, appropriate for age. ll1 Pain: Complains of pain in R shoulder Quality of pain is described as aching. Musculoskeletal: Circulation, motion, and sensation intact. Capillary refill < 3 seconds, Reports pain in R shoulder. Historical: - Allergies: 09:17 Iodine; ll1 - PMHx: 09:17 Anxiety; Chronic pain; Diabetes - NIDDM; Hypertension; ll1 - PSHx: 09:17 back; ll1 - Immunization history:: Adult Immunizations up to date. - Social history:: Smoking status: Patient denies any tobacco usage or history of. - Family history:: not pertinent. - Hospitalizations: : No recent hospitalization is reported. Screenin:34 [facility] ED Fall Risk Assessment (Adult) History of falling in the last 3 months, ko1 including since admission No falls in past 3 months (0 pts) Confusion or Disorientation No (0 pts) Intoxicated or Sedated No (0 pts) Impaired Gait No (0 pts) Mobility Assist Device Used No (0 pt) Altered Elimination No (0 pt) Score/Fall Risk Level 0 - 2 = Low Risk Oriented to surroundings, Maintained a safe environment, Educated pt \T\ family on fall prevention, incl call for assistance when getting out of bed, Assessed \T\ reinforced patient's understanding of fall precautions, Provided non-skid footwear, Hourly rounding (assess needs \T\ fall precautionary measures) done, Used ambulatory aids as needed (educated on \T\ assisted with), Used gait belt as appropriate. Abuse screen: Denies threats or abuse. Denies injuries from another. Nutritional screening: No deficits noted. Tuberculosis screening: No symptoms or risk factors identified. Assessment: 09:34 General: Appears in no apparent distress. uncomfortable, Behavior is calm, cooperative, ko1 appropriate for age. Pain: Complains of pain in right sternocleidomastoid and right trapezius and right shoulder. Neuro: No deficits noted. Cardiovascular: No deficits noted. Respiratory: No deficits noted. GI: No deficits noted. : No deficits noted. EENT: No deficits noted. Derm: No deficits noted. Musculoskeletal: Reports pain in right sternocleidomastoid and right trapezius and right shoulder. Vital Signs: 09:17 BP 102 / 77; Pulse 81; Resp 18; Temp 97.9; Pulse Ox 100% ; Weight 111.58 kg; Height 5 ll1 ft. 8 in. ; Pain 9/10; 10:04 BP 110 / 74; Pulse 77; Resp 15; Pulse Ox 99% ; ko1 09:17 Body Mass Index 37.40 (111.58 kg, 172.72 cm) ll1 09:17 Pain Scale: Adult ll1 ED Course: 09:01 Patient arrived in ED. gm2 09:01 Yeison Park MD is Attending Physician. rn 09:17 Triage completed. ll1 09:18 Arm band placed on. ll1 09:24 Aracely Mesa, JACQUES is Primary Nurse. ko1 09:25 Patient placed in an exam room, on a stretcher. ll1 09:34 Patient has correct armband on for positive identification. Bed in low position. Call ko1 light in reach. Provided Education on: na. Pulse ox on. NIBP on. Door closed. Noise minimized. Lights dimmed. Warm blanket given. 09:34 No provider procedures requiring assistance completed. Patient did not have IV access ko1 during this emergency room visit. Administered Medications: 09:30 Drug: morphine IM 4 mg IM once Route: IM; Site: left deltoid; ko1 10:09 Follow up: Response: No adverse reaction; Pain is decreased ko1 09:30 Drug: Ketorolac IM 15 mg IM once Route: IM; Site: right deltoid; ko1 10:09 Follow up: Response: No adverse reaction; Pain is decreased ko1 Medication: 09:34 VIS not applicable for this client. ko1 Outcome: 10:03 Discharge ordered by . rn 10:05 Discharged to home ambulatory, with family, ko1 10:05 Condition: stable 10:05 Discharge instructions given to patient, family, Instructed on discharge instructions, follow up and referral plans. medication usage, Demonstrated understanding of instructions, follow-up care, medications, Prescriptions given X 3, 10:13 Patient left the ED. ko1 Signatures: Yeison Park MD MD rn Lewis, Lynsay, RN RN ll1 Aracely Mesa RN RN ko1 Tiffanie Mtz 2 Corrections: (The following items were deleted from the chart) 09:20 09:17 Resp 18bpm; Temp 97.9F; Pain 10/10, Adult; ll1 ll1 09:25 09:17 Pulse 81bpm; Resp 18bpm; Pulse Ox 100%; Temp 97.9F; 111.58 kg; Height 5 ft. 8 ll1 in.; BMI: 37.4; Pain 9/10, Adult; ll1
--- NOTE | 2023-07-10 10:03 | EDPHYS ---
Physician Documentation [facility] Name: Marie Carty Age: 53 yrs Sex: Male : 1970 Arrival Date: 07/10/2023 Time: 08:58 Bed 8 Private MD: ED Physician Yeison Park HPI: 07/10 09:19 This 53 yrs old Black Male presents to ER via Ambulatory with complaints of Shoulder rn Pain. 09:19 The patient or guardian complains of pain. right shoulder, right trapezius and right rn sternocleidomastoid. Onset: The symptoms/episode began/occurred 3 day(s) ago. Modifying factors: the symptoms are alleviated by nothing. The symptoms are aggravated by movement, rotation of arm. Associated signs and symptoms: Pertinent positives: severe pain, tingling, Pertinent negatives: abdominal pain, chest pain, diaphoresis, dyspnea. Severity of symptoms: At their worst the symptoms were moderate, in the emergency department the symptoms are unchanged. The patient has experienced similar episodes in the past. Patient reports neck pain and radiates to the right arm. Most of pain is at the shoulder and right trapezius region. Denies any injury. Has been acting up for the last 3 days but has had multiple times in the past. States last time shot of morphine took it away completely and he is requesting morphine again. No chest pain or shortness of breath. No fever. No weakness. Has had multiple back problems with lower back surgery in the past.. Historical: - Allergies: 09:17 Iodine; ll1 - PMHx: 09:17 Anxiety; Chronic pain; Diabetes - NIDDM; Hypertension; ll1 - PSHx: 09:17 back; ll1 - Immunization history:: Adult Immunizations up to date. - Social history:: Smoking status: Patient denies any tobacco usage or history of. - Family history:: not pertinent. - Hospitalizations: : No recent hospitalization is reported. ROS: 09:19 Constitutional: Negative for fever, chills, and weight loss, Neck: Positive for neck rn pain Cardiovascular: Negative for chest pain, palpitations, and edema, Respiratory: Negative for shortness of breath, cough, wheezing, and pleuritic chest pain, Abdomen/GI: Negative for abdominal pain, nausea, vomiting, diarrhea, and constipation, Back: Negative for injury and pain, MS/Extremity: Positive for right arm pain Skin: Negative for injury, rash, and discoloration, Neuro: Negative for headache, weakness, and seizure, Exam: 09:19 Constitutional: This is a well developed, well nourished patient who is awake, alert, rn and in no acute distress. Head/Face: Normocephalic, atraumatic. Neck: No midline cervical tenderness. No meningismus Cardiovascular: Regular rate and rhythm. No pulse deficits. Respiratory: No increased work of breathing, no retractions or nasal flaring. MS/ Extremity: Pulses equal, no cyanosis. Neuro: Awake and alert, GCS 15, oriented to person, place, time, and situation. Cranial nerves II-XII grossly intact. Motor strength 5/5 in all extremities. Sensory grossly intact. Cerebellar exam normal. Normal gait. Vital Signs: 09:17 BP 102 / 77; Pulse 81; Resp 18; Temp 97.9; Pulse Ox 100% ; Weight 111.58 kg; Height 5 ll1 ft. 8 in. ; Pain 9/10; 10:04 BP 110 / 74; Pulse 77; Resp 15; Pulse Ox 99% ; ko1 09:17 Body Mass Index 37.40 (111.58 kg, 172.72 cm) ll1 09:17 Pain Scale: Adult ll1 MDM: 09:01 Patient medically screened. rn 10:01 Differential diagnosis: tendonitis, Radiculopathy, cervical disc disorder, muscle rn spasm. Data reviewed: vital signs, nurses notes, and as a result, I will discharge patient. Counseling: I had a detailed discussion with the patient and/or guardian regarding the historical points, exam findings, and any diagnostic results supporting the discharge/admit diagnosis, the need for outpatient follow up, to return to the emergency department if symptoms worsen or persist or if there are any questions or concerns that arise at home. Special discussion: I discussed with the patient/guardian in detail that at this point there is no indication for admission to the hospital. It is understood, however, that if the symptoms persist or worsen the patient needs to return immediately for re-evaluation. Based on the history and exam findings, there is no indication for further emergent testing or inpatient evaluation. I discussed with the patient/guardian the need to see the back specialist for further evaluation of the symptoms. Administered Medications: 09:30 Drug: morphine IM 4 mg IM once Route: IM; Site: left deltoid; ko1 10:09 Follow up: Response: No adverse reaction; Pain is decreased ko1 09:30 Drug: Ketorolac IM 15 mg IM once Route: IM; Site: right deltoid; ko1 10:09 Follow up: Response: No adverse reaction; Pain is decreased ko1 Disposition Summary: 07/10/23 10:03 Discharge Ordered Notes: Location: Home rn Problem: an acute exacerbation rn Symptoms: have improved rn Condition: Stable rn Diagnosis - Cervical disc disorder with radiculopathy, unspecified cervical region rn Followup: rn - With: Private Physician - When: As needed - Reason: Recheck today's complaints, Re-evaluation by your physician Discharge Instructions: - Discharge Summary Sheet rn - Cervical Radiculopathy rn Forms: - Medication Reconciliation Form rn - Thank You Letter rn - Antibiotic internet marketing analyst - Prescription Opioid Use rn - Patient Portal Instructions rn - Leadership Thank You Letter rn Prescriptions: - gabapentin 300 mg Oral capsule - take 1 capsule ORAL route 2 times per day As needed; 20 capsule; Refills: 0, rn Product Selection Permitted - Cyclobenzaprine 10 mg Oral tablet - take 1 tablet ORAL route every 8-12 hours As needed; 12 tablet; Refills: 0, rn Product Selection Permitted - Tramadol 50 mg Oral Tablet - take 1 tablet ORAL route every 8 hours as needed; 12 tablet; Refills: 0, rn Product Selection Permitted Signatures: Yeison Park MD MD rn Lewis, Lynsay RN RN ll1 Aracely Mesa RN RN ko1 Corrections: (The following items were deleted from the chart) 09:22 09:19 Constitutional: This is a well developed, well nourished patient who is awake, rn alert, and in no acute distress. Head/Face: Normocephalic, atraumatic. Neck: No midline cervical tenderness. No meningismus Cardiovascular: Regular rate and rhythm. No pulse deficits. Respiratory: No increased work of breathing, no retractions or nasal flaring. Neuro: Awake and alert, GCS 15, oriented to person, place, time, and situation. Cranial nerves II-XII grossly intact. Motor strength 5/5 in all extremities. Sensory grossly intact. Cerebellar exam normal. Normal gait. rn
[2023-07-10 11:27] VITALS: BP 110/74; TEMP 97.9; O2SAT 99
== END ==
LOC: ER 08:58
DX: M50.10 Cervical disc disorder with radiculopathy, unspecified cervical region (principal); Z91.048 Other nonmedicinal substance allergy status
CPT/HCPCS: 96372; 99284

== ENCOUNTER → 2023-07-11 | Emergency (ER) | payer OTHER ==
[~2023-07-11] MED LIST changes: +AMOX/K CLAV 875 MG TAB ONE; +CEFTRIAXONE 1000 MG/VIAL ONE; -KETOROLAC 30 MG/ML INJ ONE; -MORPHINE 4 MG/ML SYR ONE; +NA CHLORIDE 0.9% 500 ML ONE; +dexAMETHasone 10 MG/ML VIAL ONE
[2023-07-11 08:39] LABS: Absolute Lymphocytes (CBC) 2.8 K/uL (0.7-4.9); Hematocrit 38.2 % (39.6-49.0); Lymphocytes % 43.5 % (15.3-44.8); MCV 93.8 fL (80-100); MPV 8.3 fL (7.6-11.3); Platelets 233 thou/uL (152-406); RBC Red Blood Cell Count 4.08 M/uL (4.33-5.43)
[2023-07-11 08:53] LABS: Albumin 3.4 g/dL (3.4-5.0); Bilirubin Total 0.2 mg/dL (0.2-1.0); Potassium 4.4 mEq/L (3.5-5.1); Protein, Total 7.2 g/dL (6.4-8.2)
[2023-07-11 09:32] LABS: SARS-CoV-2 Antigen Rapid Res Negative (Negative)
--- NOTE | 2023-07-11 09:44 | ER ---
Nurse's Notes [facility] Name: Marie Carty Age: 53 yrs Sex: Male : 1970 Arrival Date: 07/11/2023 Time: 07:59 Bed DX3 Private MD: Diagnosis: Acute pharyngitis, unspecified;Acute pharyngitis due to other specified organism;Type 2 diabetes mellitus with hyperglycemia Presentation: 07/11 08:18 Chief complaint: Patient states: "I was seen here yesterday for right shoulder pain but aa5 this morning is radiating up to my throat". pt reports sore throat. Coronavirus screen: sore throat. Ebola Screen: Patient denies travel to an Ebola-affected area in the 21 days before illness onset. Initial Sepsis Screen: Does the patient meet any 2 criteria? No. Patient's initial sepsis screen is negative. Does the patient have a suspected source of infection? No. Patient's initial sepsis screen is negative. Risk Assessment: Do you want to hurt yourself or someone else? Patient reports no desire to harm self or others. Onset of symptoms was July 11, 2023. 08:18 Method Of Arrival: Ambulatory aa5 08:18 Acuity: MARYAM 3 aa5 Historical: - Allergies: 08:19 Iodine; aa5 - PMHx: 08:19 Anxiety; Chronic pain; Diabetes - NIDDM; Hypertension; aa5 - PSHx: 08:19 back; aa5 - Immunization history:: Adult Immunizations unknown. - Social history:: Smoking status: Patient reports the use of cigarette tobacco products. - Family history:: not pertinent. Assessment: 09:07 Neuro: Level of Consciousness is awake, alert, obeys commands, Oriented to person, aa5 place, time, situation. Respiratory: Airway is patent Respiratory effort is even, unlabored, Respiratory pattern is regular, symmetrical. Derm: Skin is dry, Skin is normal, Skin temperature is warm. 10:00 Neuro: Level of Consciousness is awake, alert, obeys commands, Oriented to person, aa5 place, time, situation. Respiratory: Airway is patent Respiratory effort is even, unlabored, Respiratory pattern is regular, symmetrical. Derm: Skin is dry, Skin is normal, Skin temperature is warm. Vital Signs: 08:18 BP 129 / 88; Pulse 73; Resp 18 S; Temp 97.9(O); Pulse Ox 97% on R/A; Weight 111.58 kg aa5 (R); Height 5 ft. 8 in. (R); 08:18 Body Mass Index 37.40 (111.58 kg, 172.72 cm) aa5 ED Course: 08:03 Patient arrived in ED. mg5 08:09 Maxwell Garcia MD is Attending Physician. [facility] 08:18 Arm band placed on. aa5 08:19 Triage completed. aa5 08:27 Initial lab(s) drawn, by ne, sent to lab. Strep swab sent to lab. Inserted saline lock: aa5 20 gauge in right forearm, using aseptic technique. Blood collected. 09:08 SARS RAPID Sent. [id number] 09:43 Margarita Mcgee MD is Referral Physician. [facility] 10:00 No provider procedures requiring assistance completed. IV discontinued, intact, aa5 bleeding controlled, No redness/swelling at site. Pressure dressing applied. Administered Medications: 09:08 Drug: NS 0.9% IV 500 ml IV at bolus once Route: IV; Rate: bolus; Site: right forearm; aa5 09:40 Follow up: IV Status: Completed infusion; IV Intake: 500ml aa5 09:08 Drug: Amoxicillin-Clavulanate PO 875 mg PO once Route: PO; aa5 09:33 Follow up: Response: No adverse reaction aa5 09:08 Drug: Rocephin IV 1 grams IV at per protocol once; Given slow IV push per pharmacy aa5 instructions Route: IV; Rate: per protocol; Site: right forearm; 09:33 Follow up: Response: No adverse reaction aa5 09:09 Drug: Decadron - Dexamethasone IVP 10 mg IVP once Route: IVP; Site: right forearm; aa5 09:32 Follow up: Response: No adverse reaction aa5 Intake: 09:40 IV: 500ml; Total: 500ml. aa5 Outcome: 09:43 Discharge ordered by . [facility] 10:00 Discharged to home ambulatory, aa5 10:00 Condition: stable 10:00 Discharge instructions given to patient, Instructed on discharge instructions, follow up and referral plans. medication usage, Demonstrated understanding of instructions, follow-up care, medications, Prescriptions given X 3, 10:02 Patient left the ED. aa5 Signatures: Maxwell Garcia MD MD cha Calderon, Audri, RN RN aa5 Simona Joseph mg5 Rickie De [id number]
--- NOTE | 2023-07-11 09:44 | EDPHYS ---
Physician Documentation [facility] Name: Marie Carty Age: 53 yrs Sex: Male : 1970 Arrival Date: 07/11/2023 Time: 07:59 Bed DX3 Private MD: ED Physician Maxwell Garcia HPI: 07/11 08:49 This 53 yrs old Black Male presents to ER via Ambulatory with complaints of Sore Throat clarissa - Swelling. 08:49 The patient presents with sore throat. The patient describes throat pain as burning, clarissa constant, raw. Onset: The symptoms/episode began/occurred 2 day(s) ago. Severity of symptoms: At their worst the symptoms were mild, in the emergency department the symptoms are unchanged. Modifying factors: The symptoms are alleviated by nothing, the symptoms are aggravated by swallowing. Associated signs and symptoms: Pertinent positives: Sore throat. The patient has experienced similar episodes in the past, several times. Historical: - Allergies: 08:19 Iodine; aa5 - PMHx: 08:19 Anxiety; Chronic pain; Diabetes - NIDDM; Hypertension; aa5 - PSHx: 08:19 back; aa5 - Immunization history:: Adult Immunizations unknown. - Social history:: Smoking status: Patient reports the use of cigarette tobacco products. - Family history:: not pertinent. ROS: 08:49 Constitutional: Negative for fever, chills, and weight loss, Eyes: Negative for injury, clarissa pain, redness, and discharge, Neck: Negative for injury, pain, and swelling, Cardiovascular: Negative for chest pain, palpitations, and edema, Respiratory: Negative for shortness of breath, cough, wheezing, and pleuritic chest pain, Abdomen/GI: Negative for abdominal pain, nausea, vomiting, diarrhea, and constipation, Back: Negative for injury and pain, : Negative for injury, bleeding, discharge, and swelling, MS/Extremity: Negative for injury and deformity, Skin: Negative for injury, rash, and discoloration, Neuro: Negative for headache, weakness, numbness, tingling, and seizure, Psych: Negative for depression, anxiety, suicide ideation, homicidal ideation, and hallucinations, Allergy/Immunology: Negative for hives, rash, and allergies, Endocrine: Negative for neck swelling, polydipsia, polyuria, polyphagia, and marked weight changes, Hematologic/Lymphatic: Negative for swollen nodes, abnormal bleeding, and unusual bruising, 08:49 ENT: Positive for sore throat, Exam: 08:49 Constitutional: This is a well developed, well nourished patient who is awake, alert, clarissa and in no acute distress. Head/Face: Normocephalic, atraumatic. Eyes: Pupils equal round and reactive to light, extra-ocular motions intact. Lids and lashes normal. Conjunctiva and sclera are non-icteric and not injected. Cornea within normal limits. Periorbital areas with no swelling, redness, or edema. Neck: Trachea midline, no thyromegaly or masses palpated, and no cervical lymphadenopathy. Supple, full range of motion without nuchal rigidity, or vertebral point tenderness. No Meningismus. Chest/axilla: Normal chest wall appearance and motion. Nontender with no deformity. No lesions are appreciated. Cardiovascular: Regular rate and rhythm with a normal S1 and S2. No gallops, murmurs, or rubs. Normal PMI, no JVD. No pulse deficits. Respiratory: Lungs have equal breath sounds bilaterally, clear to auscultation and percussion. No rales, rhonchi or wheezes noted. No increased work of breathing, no retractions or nasal flaring. Abdomen/GI: Soft, non-tender, with normal bowel sounds. No distension or tympany. No guarding or rebound. No evidence of tenderness throughout. Back: No spinal tenderness. No costovertebral tenderness. Full range of motion. Skin: Warm, dry with normal turgor. Normal color with no rashes, no lesions, and no evidence of cellulitis. MS/ Extremity: Pulses equal, no cyanosis. Neurovascular intact. Full, normal range of motion. Neuro: Awake and alert, GCS 15, oriented to person, place, time, and situation. Cranial nerves II-XII grossly intact. Motor strength 5/5 in all extremities. Sensory grossly intact. Cerebellar exam normal. Normal gait. Psych: Awake, alert, with orientation to person, place and time. Behavior, mood, and affect are within normal limits. 08:49 ENT: Posterior pharynx: no acute changes, Airway: no evidence of obstruction, Tonsils: bilaterally enlarged, with erythema, Uvula: normal, midline, non-edematous, no erythema, swelling, that is mild, erythema, that is mild, exudate, is not appreciated, peritonsillar mass, is not appreciated, 08:53 Musculoskeletal/extremity: DVT Exam: No signs of deep vein thrombosis. no pain, no clarissa swelling, no tenderness, negative Homans' sign noted on exam, no appreciated bluish discoloration, no erythema, no increased warmth, 09:08 ECG was reviewed by the Attending Physician. [facility] Vital Signs: 08:18 BP 129 / 88; Pulse 73; Resp 18 S; Temp 97.9(O); Pulse Ox 97% on R/A; Weight 111.58 kg aa5 (R); Height 5 ft. 8 in. (R); 08:18 Body Mass Index 37.40 (111.58 kg, 172.72 cm) aa5 MDM: 08:09 Patient medically screened. [facility] 08:53 Differential diagnosis: cocksackie virus, echovirus infection, epiglottitis, clarissa gastroesophageal reflux disease, group A strep tonsillitis, influenza, laryngitis, aric's angina, mononucleosis, peritonsillar abscess chlamydia pharyngitis, neisseria gonorrheoeae pharangitis, pharyngitis, tonsillitis, upper respiratory infection, uvulitis, viral syndrome. Data reviewed: vital signs, nurses notes, lab test result(s), EKG. Consideration of Admission/Observation Escalation of care including admission/observation considered. I considered the following discharge prescriptions or medication management in the emergency department Medications were administered in the Emergency Department. See MAR. Test considered but Not performed: CT: no ct soft neck. Historians other than the Patient: patient well informed. Care significantly affected by the following chronic conditions: Diabetes, Hypertension, anxiety. 07/11 08:10 Order name: Strep [facility] 07/11 08:10 Order name: CBC with Diff; Complete Time: 08:44 [facility] 07/11 08:10 Order name: Comprehensive Metabolic Panel; Complete Time: 09:43 [facility] 07/11 08:10 Order name: Warren Screen Profile; Complete Time: 09:43 [facility] 07/11 08:45 Order name: Troponin HS; Complete Time: 09:43 [facility] 07/11 08:48 Order name: Throat Culture EDMS 07/11 08:50 Order name: SARS RAPID; Complete Time: 09:43 em1 07/11 08:45 Order name: EKG; Complete Time: 08:46 [facility] 07/11 08:45 Order name: EKG - Nurse/Tech; Complete Time: : clarissa EC: Rate is 77 beats/min. Rhythm is regular. QRS [place] is Normal. [place] interval is normal. QRS clarissa interval is normal. QT interval is normal. No Q waves. T waves are Normal. No ST changes noted. Clinical impression: NSR w/ Non-specific ST/T Changes and No evidence of ischemia. Interpreted by me. Reviewed by me. Administered Medications: : Drug: NS 0.9% IV 500 ml IV at bolus once Route: IV; Rate: bolus; Site: right forearm; aa5 09:40 Follow up: IV Status: Completed infusion; IV Intake: 500ml aa5 09:08 Drug: Amoxicillin-Clavulanate PO 875 mg PO once Route: PO; aa5 09:33 Follow up: Response: No adverse reaction aa5 09:08 Drug: Rocephin IV 1 grams IV at per protocol once; Given slow IV push per pharmacy aa5 instructions Route: IV; Rate: per protocol; Site: right forearm; 09:33 Follow up: Response: No adverse reaction aa5 09:09 Drug: Decadron - Dexamethasone IVP 10 mg IVP once Route: IVP; Site: right forearm; aa5 09:32 Follow up: Response: No adverse reaction aa5 Disposition Summary: 07/11/23 09:43 Discharge Ordered Notes: Location: Home clarissa Problem: new clarissa Symptoms: have improved clarissa Condition: Stable clarissa Diagnosis - Acute pharyngitis, unspecified clarissa - Acute pharyngitis due to other specified organism clarissa - Type 2 diabetes mellitus with hyperglycemia clarissa Followup: clarissa - With: Private Physician - When: 2 - 3 days - Reason: Recheck today's complaints, Continuance of care, Re-evaluation by your physician Followup: clarissa - With: Margarita Mcgee MD - When: 2 - 3 days - Reason: Recheck today's complaints, Re-evaluation by your physician Discharge Instructions: - Discharge Summary Sheet clarissa - Pharyngitis clarissa - Sore Throat clarissa - Strep Throat, Adult clarissa - Upper Respiratory Infection, Adult clarissa - Strep Throat, Adult, Vyym-[id number] clarissa - Upper Respiratory Infection, Adult, Tjmw-be-[id number] clarissa - Pharyngitis, Gnqq-yb-[id number] clarissa - Diabetes Mellitus and Nutrition, Adult clarissa - Sore Throat, [id number] [facility] Forms: - Medication Reconciliation Form [facility] - Thank You Letter clarissa - Antibiotic Education clarissa - Prescription Opioid Use clarissa - Patient Portal Instructions [facility] - Leadership Thank You Letter [facility] Prescriptions: - dexamethasone 2 mg Oral tablet - take 1 tablet ORAL route 2 times per day; 8 tablet; Refills: 0, Product [facility] Selection Permitted - Augmentin 875-125 mg Oral Tablet - take 1 tablet ORAL route every 12 hours for 10 days; 20 tablet; Refills: 0, [facility] Product Selection Permitted - Tessalon Perles 100 mg Oral capsule - take 2 capsule ORAL route every 8 hours As needed; 30 capsule; Refills: 0, [facility] Product Selection Permitted Signatures: Dispatcher [employer] Maxwell Allen MD MD cha Calderon, Audri, RN RN aa5
[2023-07-11 10:24] VITALS: BP 129/88; TEMP 97.9; O2SAT 97
--- NOTE | 2023-07-18 13:57 | EKG ---
Test Date: 2023-07-11 Test Time: 09:06:33 Public Relations Writer: CURLY MEASUREMENT RESULTS: Intervals: Rate: 77 OR: 172 QRSD: 74 QT: 376 QTc: 425 [place]: P: OR: 172 QRS: 146 T: 148 INTERPRETIVE STATEMENTS: Suspect arm lead reversal, interpretation assumes no reversal Sinus rhythm with occasional premature ventricular complexes Lateral infarct, age undetermined Abnormal ECG Compared to ECG 05/11/2023 06:03:53 Ventricular premature complex(es) now present Myocardial infarct finding now present Electronically Signed On 07-18-23 13:31:31 LAW ENFORCEMENT DIRECTOR by Casper Tate
== END ==
LOC: ER 07:59
DX: J02.8 Acute pharyngitis due to other specified organisms (principal); E11.65 Type 2 diabetes mellitus with hyperglycemia; I10 Essential (primary) hypertension; G89.29 Other chronic pain; F17.210 Nicotine dependence, cigarettes, uncomplicated; Z11.52 Encounter for screening for COVID-19
CPT/HCPCS: 96361; 93005; 87070; 85025; 36415; 86308; 87081; 84484; 80053; 96375; 96374; 99284; 87811; J1100; J7040; J0696

== ENCOUNTER 2023-10-05 23:06 | Emergency (ER) | payer OTHER ==
[2023-10-05 23:37] LABS: Absolute Eosinophils 0.1 K/uL (0-0.5); Absolute Monocytes 0.3 K/uL (0.1-1.3); Absolute Neutrophil 3.7 K/uL (1.8-8.0); Basophils % 0.7 % (0-1.3); Eosinophils % 0.7 % (0-4.4); Hematocrit 37.3 % (39.6-49.0); Hemoglobin 12.6 g/dL (13.6-17.9); Lymphocytes % 42.4 % (15.3-44.8); MCH 31.8 pg (27.0-35.0); MCHC 33.7 g/dL (32.0-36.0); MCV 94.4 fL (80-100); MPV 8.2 fL (7.6-11.3); Monocytes % 4.5 % (3.3-12.3); Neutrophils % 51.7 % (41.7-73.7); Nucleated Red Blood Cells % 0.2 % (0-0); Platelets 249 thou/uL (152-406); RBC Red Blood Cell Count 3.95 M/uL (4.33-5.43); Red Cell Distribution Width 14.2 % (12.1-15.2)
[2023-10-05 23:55] LABS: Anion Gap 10.2 mEq/L (5.0-15.0); Troponin High Sensitivity 3.1 pg/mL (<58.9)
[2023-10-05 23:56] LABS: Potassium 4.2 mEq/L (3.5-5.1)
--- NOTE | 2023-10-06 00:56 | ER ---
Nurse's Notes [facility] Name: Marie Carty Age: 53 yrs Sex: Male : 1970 Arrival Date: 10/05/2023 Time: 23:06 Bed 15 Private MD: Diagnosis: Palpitations Presentation: 10/04 23:22 Chief complaint: EMS states: 53 YEAR OLD MALE WAS GETTING READY TO GO TO SLEEP WHEN ha1 SUDDENLY STARTED TO FEEL CHEST PAIN, PALPITATIONS, NAUSEA, AND VOMITING. 23:22 Coronavirus screen: Vaccine status: Patient reports receiving the 1st dose of the Covid ha1 vaccine. MODERNA. Ebola Screen: No symptoms or risks identified at this time. Initial Sepsis Screen: Does the patient meet any 2 criteria? No. Patient's initial sepsis screen is negative. Does the patient have a suspected source of infection? No. Patient's initial sepsis screen is negative. Risk Assessment: Do you want to hurt yourself or someone else? Patient reports no desire to harm self or others. Onset of symptoms was October 05, 2023. 23:22 Method Of Arrival: EMS: [facility] ha1 23:22 Acuity: MARYAM 2 ha1 Triage Assessment: 23:22 General: Appears comfortable, Behavior is calm, cooperative. Pain: Complains of pain in ha1 chest Pain does not radiate. Pain currently is 2 out of 10 on a pain scale. Quality of pain is described as pressure, pulsating, Pain began suddenly, 1 hour ago. Neuro: Level of Consciousness is awake, alert, obeys commands, Oriented to person, place, time, situation. Cardiovascular: Reports chest pain, diaphoresis, nausea, vomiting, Heart tones S1 S2 present Capillary refill < 3 seconds Patient's skin is warm and dry. Rhythm is sinus rhythm. Respiratory: Airway is patent Respiratory effort is even, unlabored, Respiratory pattern is regular, symmetrical. GI: Abdomen is round non-distended, obese, Bowel sounds present X 4 quads. Reports nausea. : No signs and/or symptoms were reported regarding the genitourinary system. Derm: Skin is moist, Skin is normal. Musculoskeletal: Circulation, motion, and sensation intact. Range of motion: intact in all extremities. Historical: - Allergies: 23:22 Iodine; ha1 - Home Meds: 23:22 lisinopril 10 mg Oral tab 1 tab once daily [Active]; metformin 750 mg Oral Tb24 1 tab ha1 once daily [Active]; - PMHx: 23:22 Anxiety; Chronic pain; Diabetes - NIDDM; Hypertension; ha1 - PSHx: 23:22 back; ha1 - Immunization history:: Adult Immunizations not up to date. - Infectious Disease History:: Denies. - Social history:: Smoking status: Patient reports the use of cigarette tobacco products, smokes one pack cigarettes per day. Screenin:22 Abuse screen: Denies threats or abuse. Denies injuries from another. Nutritional ha1 screening: No deficits noted. Tuberculosis screening: No symptoms or risk factors identified. 10/05 01:25 [facility] ED Fall Risk Assessment (Adult) History of falling in the last 3 months, ha1 including since admission No falls in past 3 months (0 pts) Confusion or Disorientation No (0 pts) Intoxicated or Sedated No (0 pts) Impaired Gait No (0 pts) Mobility Assist Device Used No (0 pt) Altered Elimination No (0 pt) Score/Fall Risk Level 0 - 2 = Low Risk Oriented to surroundings, Maintained a safe environment, Educated pt \T\ family on fall prevention, incl call for assistance when getting out of bed, Hourly rounding (assess needs \T\ fall precautionary measures) done. Assessment: 10/04 23:22 Reassessment: SEE TRIAGE ASSESSMENT. ha1 10/05 00:30 Reassessment: Patient and/or family updated on plan of care and expected duration. Pain ha1 level reassessed. Patient is alert, oriented x 3, equal unlabored respirations, skin warm/dry/pink. 01:23 Reassessment: Patient and/or family updated on plan of care and expected duration. Pain ha1 level reassessed. Patient is alert, oriented x 3, equal unlabored respirations, skin warm/dry/pink. Patient denies pain at this time. Patient states feeling better. Patient states symptoms have improved. Vital Signs: 10/04 23:22 BP 143 / 83; Pulse 77; Resp 16 S; Temp 97.9; Pulse Ox 98% on R/A; Weight 111.58 kg; ha1 Height 5 ft. 8 in. ; 10/05 00:00 BP 140 / 95; Pulse 73; Resp 17 S; Pulse Ox 98% on R/A; ha1 01:00 BP 133 / 83; Pulse 77; Resp 17 S; Temp 98.1; Pulse Ox 97% on R/A; ha1 10/04 23:22 Body Mass Index 37.40 (111.58 kg, 172.72 cm) ha1 ED Course: 10/04 23:22 Patient arrived in ED. ha1 23:22 Isabell Mcmillan RN is Primary Nurse. ha1 23:22 Maintain EMS IV. Dressing intact. Good blood return noted. Site clean \T\ dry. Gauge \T\ mart 1 site: 18 GAUGE R.FOREARM . 23:22 Arm band placed on right wrist. ha1 23:22 Patient has correct armband on for positive identification. Placed in gown. Bed in low ha1 position. Call light in reach. Side rails up X 1. Adult w/ patient. 23:24 [facility] kb 23:24 Eliigo Chavez MD is Attending Physician. kb 23:41 Basic Metabolic Panel Sent. ha1 23:41 Troponin HS Sent. ha1 23:44 Triage completed. ha1 10/05 00:20 XRAY Chest (1 view) In Process Unspecified. EDMS 01:24 No provider procedures requiring assistance completed. IV discontinued, intact, ha1 bleeding controlled, No redness/swelling at site. Pressure dressing applied. 01:24 Provided Education on: FOLLOWING UP WITH PAYROLL CLERK . ha1 Administered Medications: No medications were administered Medication: 01:24 VIS not applicable for this client. ha1 Outcome: 00:56 Discharge ordered by . kb 01:24 Discharged to home ambulatory, with family, ha1 01:24 Condition: stable 01:24 Discharge instructions given to patient, family, Instructed on discharge instructions, follow up and referral plans. Demonstrated understanding of instructions, follow-up care, 01:25 Patient left the ED. ha1 Signatures: Dispatcher [employer] EDMS Glory Dean FNP-C FNP-Isabell Leon RN RN ha1
--- NOTE | 2023-10-06 00:56 | EDPHYS ---
Physician Documentation [facility] Name: Marie Carty Age: 53 yrs Sex: Male : 1970 Arrival Date: 10/05/2023 Time: 23:06 Bed 15 Private MD: ED Physician Eligio Chavez HPI: 10/05 00:57 This 53 yrs old Black Male presents to ER via EMS with complaints of Chest Pain. 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 States kb they have since resolved. Reports he felt hot all over and his heart started racing. Denies chest pain or shortness of breath. Historical: - Allergies: 10/04 23:22 Iodine; ha1 - Home Meds: 23:22 lisinopril 10 mg Oral tab 1 tab once daily [Active]; metformin 750 mg Oral Tb24 1 tab ha1 once daily [Active]; - PMHx: 23:22 Anxiety; Chronic pain; Diabetes - NIDDM; Hypertension; ha1 - PSHx: 23:22 back; ha1 - Immunization history:: Adult Immunizations not up to date. - Infectious Disease History:: Denies. - Social history:: Smoking status: Patient reports the use of cigarette tobacco products, smokes one pack cigarettes per day. ROS: 10/05 00:55 Constitutional: As per HPI kb Exam: 00:51 Constitutional: This is a well developed, well nourished patient who is awake, alert, kb and in no acute distress. Head/Face: Normocephalic, atraumatic. ENT: Moist Mucous membranes Cardiovascular: Regular rate Respiratory: Respirations even and unlabored. No increased work of breathing. Talking in full sentences Abdomen/GI: Soft, non-tender. No distention Skin: Warm, dry with normal turgor. Normal color. MS/ Extremity: Pulses equal, no cyanosis. Neurovascular intact. Full, normal range of motion. Neuro: Awake and alert, GCS 15, oriented to person, place, time, and situation. Moves all extremities. Normal gait. 00:51 ECG was reviewed by the Attending Physician. Vital Signs: 10/04 23:22 BP 143 / 83; Pulse 77; Resp 16 S; Temp 97.9; Pulse Ox 98% on R/A; Weight 111.58 kg; 1 Height 5 ft. 8 in. ; 10/05 00:00 BP 140 / 95; Pulse 73; Resp 17 S; Pulse Ox 98% on R/A; ha1 01:00 BP 133 / 83; Pulse 77; Resp 17 S; Temp 98.1; Pulse Ox 97% on R/A; ha1 10/04 23:22 Body Mass Index 37.40 (111.58 kg, 172.72 cm) [facility] MDM: 10/04 23:24 Patient medically screened. kb 10/05 00:56 Differential diagnosis: arrhythmia, anxiety, abnormal electrolytes, dehydration. Data kb reviewed: vital signs, nurses notes. Consideration of Admission/Observation Escalation of care including admission/observation considered. admission considered, but pt states he is feeling fine now and is ready to go home. Historians other than the Patient: EMS: [facility]. Counseling: I had a detailed discussion with the patient and/or guardian regarding the historical points, exam findings, and any diagnostic results supporting the discharge/admit diagnosis, lab results, radiology results, the need for outpatient follow up, a family practitioner, to return to the emergency department if symptoms worsen or persist or if there are any questions or concerns that arise at home. 10/04 23:23 Order name: Basic Metabolic Panel; Complete Time: 23:57 10/04 23:23 Order name: CBC with Diff; Complete Time: 23:37 10/04 23:23 Order name: Troponin HS; Complete Time: 23:57 10/04 23:23 Order name: XRAY Chest (1 view) [facility] 10/04 23:23 Order name: EKG; Complete Time: 23:23 10/04 23:23 Order name: Cardiac monitoring; Complete Time: 23:41 10/04 23:23 Order name: EKG - Nurse/Tech; Complete Time: 23:41 10/04 23:23 Order name: IV Saline Lock; Complete Time: 23:41 [facility] 10/04 23:23 Order name: Labs collected and sent; Complete Time: 23:41 10/04 23:23 Order name: O2 Per Protocol; Complete Time: 23:41 [facility] 10/04 23:23 Order name: O2 Sat Monitoring; Complete Time: 23:41 EC:51 Rate is 81 beats/min. Rhythm is regular. QRS [place] is Normal. [place] interval is normal at kb 172 msec. QRS interval is normal at 84 msec. QT interval is normal at 432 msec. Administered Medications: No medications were administered Disposition: 22:10 Co-signature as Attending Physician, Eligio Chavez MD I agree with the assessment sp4 and plan of care. I reviewed the patient's care provided by the Advanced Practice Provider and agree with the diagnosis and treatment plan. Disposition Summary: 10/06/23 00:56 Discharge Ordered Notes: Location: Home kb Condition: Stable kb Diagnosis - Palpitations kb Followup: kb - With: Emergency Department - When: As needed - Reason: Worsening of condition Followup: kb - With: Private Physician - When: 2 - 3 days - Reason: Recheck today's complaints, Continuance of care, Re-evaluation by your physician Discharge Instructions: - Discharge Summary Sheet kb - Palpitations, [id number]-[id number] kb Forms: - Medication Reconciliation Form kb - Thank You Letter kb - Antibiotic Education kb - Prescription Opioid Use kb - Patient Portal Instructions kb - Leadership Thank You Letter kb Signatures: Dispatcher [employer] EDCA lGory Dean, FOUNTAIN DISPENSER-C FOUNTAIN DISPENSER-Isabell Leon, RN RN ha1 Eligio Chavez MD MD sp4
[2023-10-06 01:44] VITALS: BP 143/83; TEMP 97.9; O2SAT 98
--- NOTE | 2023-10-06 19:56 | RAD REPORT ---
EXAM DESCRIPTION: RAD - Chest Single View - 10/06/2023 12:19 am CLINICAL HISTORY: Male, 53 years old, CHEST PAIN TECHNIQUE: 2 frontal views COMPARISON: 05/11/2023 (report only available at the time of dictation) FINDINGS: Soft tissue attenuation and beam underpenetration limit assessment. SUPPORT DEVICES: Overlying leads. LUNGS/PLEURA: No consolidation, pleural effusion, or pneumothorax. HEART/MEDIASTINUM: Normal size and configuration. OTHER: No acute osseous findings. IMPRESSION: No acute cardiopulmonary findings. Electronically signed by: Suraj Resendiz MD 10/06/2023 12:45 AM CDT Due to temporary technical issues with the PACS/Fluency reporting system, reports are being signed by the in house radiologists without review as a courtesy to insure prompt reporting. The interpreting radiologist is fully responsible for the content of the report.
== END 2023-10-06 01:25 | disposition home or self-care (01) ==
LOC: ER 23:06
DX: R00.2 Palpitations (principal); E11.9 Type 2 diabetes mellitus without complications; I10 Essential (primary) hypertension; F17.210 Nicotine dependence, cigarettes, uncomplicated; F41.9 Anxiety disorder, unspecified; Z91.048 Other nonmedicinal substance allergy status
CPT/HCPCS: 36415; 71045; 80048; 84484; 85025; 93005; 99284